=== PATIENT | female | born 1980 | race Caucasian/White ===

== ENCOUNTER → 2019-05-04 10:46 | Outpatient (BNVA) | payer MEDICAID, SELFPAY | PROVIDERS: PCP Nurse Practitioner Family; Visit Provider Nurse Practitioner Family | DX: J40 Bronchitis, not specified as acute or chronic (principal) | CPT/HCPCS: 87804 ==

== ENCOUNTER → 2019-05-08 10:47 | Outpatient (BNVA) | payer MEDICAID, SELFPAY | PROVIDERS: PCP Nurse Practitioner Family; Visit Provider Social Worker Clinical | DX: F43.12 Post-traumatic stress disorder, chronic; F33.2 Major depressive disorder, recurrent severe without psychotic features; F41.1 Generalized anxiety disorder | CPT/HCPCS: 90834 ==

== ENCOUNTER → 2019-05-14 12:53 | Outpatient (BNVA) | payer MEDICAID, SELFPAY | PROVIDERS: PCP Nurse Practitioner Family; Visit Provider Social Worker Clinical | DX: F43.12 Post-traumatic stress disorder, chronic (principal); F33.2 Major depressive disorder, recurrent severe without psychotic features; F41.1 Generalized anxiety disorder | CPT/HCPCS: 90834 ==

== ENCOUNTER → 2019-05-15 11:55 | Outpatient (BNVA) | payer MEDICAID, SELFPAY | PROVIDERS: PCP Nurse Practitioner Family; Visit Provider Psychiatry & Neurology Psychiatry | DX: F33.2 Major depressive disorder, recurrent severe without psychotic features (principal); F41.1 Generalized anxiety disorder; F43.12 Post-traumatic stress disorder, chronic | CPT/HCPCS: 99214; 99215 ==

== ENCOUNTER → 2019-05-24 14:29 | Outpatient (BNVA) | payer MEDICAID, SELFPAY | PROVIDERS: PCP Nurse Practitioner Family; Referring Provider Nurse Practitioner Family; Visit Provider Specialist | DX: G43.711 Chronic migraine without aura, intractable, with status migrainosus (principal); Z87.891 Personal history of nicotine dependence | CPT/HCPCS: 99204; 99214 ==

== ENCOUNTER → 2019-05-30 15:56 | Outpatient (BNVA) | payer MEDICAID, SELFPAY | PROVIDERS: PCP Nurse Practitioner Family; Visit Provider Social Worker Clinical | DX: F33.2 Major depressive disorder, recurrent severe without psychotic features (principal); F41.1 Generalized anxiety disorder; F43.12 Post-traumatic stress disorder, chronic | CPT/HCPCS: 90834 ==

== ENCOUNTER → 2019-06-04 11:49 | Outpatient (BNVA) | payer MEDICAID, SELFPAY | PROVIDERS: PCP Nurse Practitioner Family; Visit Provider Social Worker Clinical | DX: F33.2 Major depressive disorder, recurrent severe without psychotic features (principal); F41.1 Generalized anxiety disorder; F43.12 Post-traumatic stress disorder, chronic | CPT/HCPCS: 90834 ==

== ENCOUNTER → 2019-06-11 11:49 | Outpatient (BNVA) | payer MEDICAID, SELFPAY | PROVIDERS: PCP Nurse Practitioner Family; Visit Provider Social Worker Clinical | DX: F43.12 Post-traumatic stress disorder, chronic (principal); F33.2 Major depressive disorder, recurrent severe without psychotic features; F41.1 Generalized anxiety disorder | CPT/HCPCS: 90834 ==

== ENCOUNTER → 2019-06-14 14:21 | Outpatient (BNVA) | payer MEDICAID, SELFPAY | PROVIDERS: PCP Nurse Practitioner Family; Visit Provider Nurse Practitioner Family | DX: M25.512 Pain in left shoulder (principal) | CPT/HCPCS: 73030 ==

== ENCOUNTER → 2019-06-19 13:47 | Outpatient (BNVA) | payer MEDICAID, SELFPAY | PROVIDERS: PCP Nurse Practitioner Family; Visit Provider Social Worker Clinical | DX: F33.2 Major depressive disorder, recurrent severe without psychotic features (principal); F41.1 Generalized anxiety disorder; F43.12 Post-traumatic stress disorder, chronic | CPT/HCPCS: 90834 ==

== ENCOUNTER → 2019-06-26 10:11 | Outpatient (BNVA) | payer MEDICAID, SELFPAY | PROVIDERS: PCP Nurse Practitioner Family; Visit Provider Psychiatry & Neurology Psychiatry | DX: F33.2 Major depressive disorder, recurrent severe without psychotic features (principal); F41.1 Generalized anxiety disorder; F43.12 Post-traumatic stress disorder, chronic | CPT/HCPCS: 99213 ==

== ENCOUNTER → 2019-06-29 08:46 | Outpatient (BNVA) | payer MEDICAID, SELFPAY | PROVIDERS: PCP Nurse Practitioner Family; Visit Provider Social Worker Clinical | DX: F33.2 Major depressive disorder, recurrent severe without psychotic features (principal); F41.1 Generalized anxiety disorder; F43.12 Post-traumatic stress disorder, chronic | CPT/HCPCS: 90834 ==

== ENCOUNTER → 2019-07-10 08:37 | Outpatient (BNVA) | payer MEDICAID, SELFPAY | PROVIDERS: PCP Nurse Practitioner Family; Visit Provider Social Worker Clinical | DX: F41.1 Generalized anxiety disorder (principal); F43.12 Post-traumatic stress disorder, chronic; F33.2 Major depressive disorder, recurrent severe without psychotic features | CPT/HCPCS: 90834 ==

== ENCOUNTER → 2019-07-24 11:36 | Outpatient (BNVA) | payer MEDICAID, SELFPAY | PROVIDERS: PCP Nurse Practitioner Family; Visit Provider Social Worker Clinical | DX: F43.12 Post-traumatic stress disorder, chronic (principal) | CPT/HCPCS: 90834 ==

== ENCOUNTER → 2019-07-30 14:05 | Outpatient (BNVA) | payer MEDICAID, SELFPAY | PROVIDERS: PCP Nurse Practitioner Family; Visit Provider Social Worker Clinical | DX: F41.1 Generalized anxiety disorder (principal); F33.2 Major depressive disorder, recurrent severe without psychotic features; F43.12 Post-traumatic stress disorder, chronic | CPT/HCPCS: 90834 ==

== ENCOUNTER 2019-08-01 12:45 | Outpatient (CLI) | payer MEDICAID, SELFPAY ==
--- NOTE | 2019-08-01 12:51 | MR_ITS ---
WS: [id number] MRI LEFT SHOULDER NONCONTRAST TECHNIQUE: Sagittal T2, coronal T1, T2 and proton density imaging. Axial gradient PDE imaging. CLINICAL INFORMATION: pain left shoulder COMPARISON: None. FINDINGS: Mild degenerative arthritis at the AC joint with mild downsloping of the acromion. Small amount of fl uid and edema at the AC joint. Mild narrowing of the subacromial space. Distal supraspinatus is lavern l with mild thinning. Normal infraspinatus. Normal teres minor. Distal subscapularis is normal in vicente earance. Biceps tendon intact within the bicipital groove. Normal biceps labral anchor. Glenoid labrum is norm al in appearance. Normal visualized soft tissues. No other significant findings. MR/MR shoulder LT wo con* [id number] IMPRESSION: 1. Mild degenerative arthritis at the AC joint with a small amount of edema an d fluid. Mild downsloping of the acromion. 2. Mild narrowing of the subacromial space with mild thinning of the supraspin atus distally. No full-thickness rotator cuff tears. 3. Biceps tendon is intact within the bicipital groove. Normal biceps labral a nchor. 4. Glenoid labrum is grossly normal.
== END 2019-08-01 12:46 | disposition home or self-care (01) ==
LOC: RADWPI 12:48
PROVIDERS: PCP Nurse Practitioner Family; Visit Provider Nurse Practitioner Family
DX: M25.512 Pain in left shoulder (principal); M71.9 Bursopathy, unspecified; G43.009 Migraine without aura, not intractable, without status migrainosus; G43.711 Chronic migraine without aura, intractable, with status migrainosus; M75.52 Bursitis of left shoulder; G47.33 Obstructive sleep apnea (adult) (pediatric)
CPT/HCPCS: 73221; 99215; J1030; J3490

== ENCOUNTER → 2019-08-07 08:50 | Outpatient (BNVA) | payer MEDICAID, SELFPAY | PROVIDERS: PCP Nurse Practitioner Family; Visit Provider Psychiatry & Neurology Psychiatry | DX: F33.2 Major depressive disorder, recurrent severe without psychotic features (principal); F41.1 Generalized anxiety disorder | CPT/HCPCS: 99213 ==

== ENCOUNTER → 2019-08-08 10:01 | Outpatient (BNVA) | payer MEDICAID, SELFPAY | PROVIDERS: PCP Nurse Practitioner Family; Visit Provider Social Worker Clinical | DX: F41.1 Generalized anxiety disorder (principal); F33.2 Major depressive disorder, recurrent severe without psychotic features | CPT/HCPCS: 90834 ==

== ENCOUNTER 2019-08-14 06:00 | Outpatient (RCR) | payer MEDICAID, SELFPAY | END 2019-08-30 23:59 | disposition home or self-care (01) | LOC: TPT 06:00 | PROVIDERS: Family Provider Nurse Practitioner Family; PCP Nurse Practitioner Family; Referring Provider Nurse Practitioner Family; Visit Provider Nurse Practitioner Family | DX: M25.512 Pain in left shoulder (principal) | CPT/HCPCS: 97110; 97140; 97161; 97530 ==

== ENCOUNTER → 2019-08-15 13:41 | Outpatient (BNVA) | payer MEDICAID, SELFPAY | PROVIDERS: Family Provider Nurse Practitioner Family; PCP Nurse Practitioner Family; Visit Provider Social Worker Clinical | DX: F41.1 Generalized anxiety disorder (principal); F33.2 Major depressive disorder, recurrent severe without psychotic features | CPT/HCPCS: 90834 ==

== ENCOUNTER → 2019-08-22 07:54 | Outpatient (BNVA) | payer MEDICAID, SELFPAY | PROVIDERS: Family Provider Nurse Practitioner Family; PCP Nurse Practitioner Family; Visit Provider Social Worker Clinical | DX: F41.1 Generalized anxiety disorder (principal); F33.2 Major depressive disorder, recurrent severe without psychotic features; F43.12 Post-traumatic stress disorder, chronic | CPT/HCPCS: 90834; 90832 ==

== ENCOUNTER 2019-08-31 06:00 | Outpatient (RCR) | payer MEDICAID, SELFPAY | END 2019-09-30 23:59 | disposition home or self-care (01) | LOC: TPT 06:00 | PROVIDERS: PCP Nurse Practitioner Family; Referring Provider Nurse Practitioner Family; Visit Provider Nurse Practitioner Family | DX: M25.512 Pain in left shoulder (principal) | CPT/HCPCS: 97110; 97140; 97530 ==

== ENCOUNTER → 2019-09-05 08:46 | Outpatient (BNVA) | payer MEDICAID, SELFPAY | PROVIDERS: Family Provider Nurse Practitioner Family; Visit Provider Social Worker Clinical | DX: F41.1 Generalized anxiety disorder (principal); F33.2 Major depressive disorder, recurrent severe without psychotic features | CPT/HCPCS: 90834 ==

== ENCOUNTER → 2019-09-06 10:35 | Outpatient (BNVA) | payer MEDICAID, SELFPAY | PROVIDERS: Family Provider Nurse Practitioner Family; PCP Nurse Practitioner Family; Visit Provider Nurse Practitioner Family | DX: I10 Essential (primary) hypertension (principal); M25.512 Pain in left shoulder; B35.3 Tinea pedis; L40.9 Psoriasis, unspecified | CPT/HCPCS: 80053; 80061; 82607; 84443; 85025 ==

== ENCOUNTER → 2019-09-10 14:43 | Outpatient (BNVA) | payer MEDICAID, SELFPAY | PROVIDERS: Family Provider Nurse Practitioner Family; PCP Nurse Practitioner Family; Visit Provider Nurse Practitioner Family | DX: I10 Essential (primary) hypertension (principal) | CPT/HCPCS: 80048 ==

== ENCOUNTER → 2019-09-13 07:46 | Outpatient (BNVA) | payer MEDICAID, SELFPAY | PROVIDERS: Family Provider Nurse Practitioner Family; PCP Nurse Practitioner Family; Visit Provider Social Worker Clinical | DX: F41.1 Generalized anxiety disorder (principal); F33.2 Major depressive disorder, recurrent severe without psychotic features; F43.12 Post-traumatic stress disorder, chronic | CPT/HCPCS: 90834 ==

== ENCOUNTER → 2019-09-20 08:25 | Outpatient (BNVA) | payer MEDICAID, SELFPAY | PROVIDERS: PCP Nurse Practitioner Family; Visit Provider Social Worker Clinical | DX: F33.2 Major depressive disorder, recurrent severe without psychotic features (principal); F41.1 Generalized anxiety disorder | CPT/HCPCS: 90834 ==

== ENCOUNTER 2019-09-27 20:00 | Outpatient (CLI) | payer MEDICAID, SELFPAY | END 2019-09-27 20:01 | disposition home or self-care (01) | LOC: SLEEP 09-28 08:10 | PROVIDERS: PCP Nurse Practitioner Family; Visit Provider Specialist | DX: G47.33 Obstructive sleep apnea (adult) (pediatric) (principal) | CPT/HCPCS: 95811 ==

== ENCOUNTER 2019-10-01 06:00 | Outpatient (RCR) | payer MEDICAID, SELFPAY | END 2019-10-30 23:59 | disposition home or self-care (01) | LOC: TPT 06:00 | PROVIDERS: PCP Nurse Practitioner Family; Visit Provider Nurse Practitioner Family | DX: M25.512 Pain in left shoulder (principal) | CPT/HCPCS: 97110; 97140 ==

== ENCOUNTER → 2019-10-02 08:16 | Outpatient (BNVA) | payer MEDICAID, SELFPAY | PROVIDERS: PCP Nurse Practitioner Family; Visit Provider Social Worker Clinical | DX: F41.1 Generalized anxiety disorder (principal); F33.2 Major depressive disorder, recurrent severe without psychotic features | CPT/HCPCS: 90832 ==

== ENCOUNTER → 2019-10-09 08:15 | Outpatient (BNVA) | payer MEDICAID, SELFPAY | PROVIDERS: PCP Nurse Practitioner Family; Visit Provider Social Worker Clinical | DX: F33.2 Major depressive disorder, recurrent severe without psychotic features (principal); F41.1 Generalized anxiety disorder | CPT/HCPCS: 90834 ==

== ENCOUNTER → 2019-10-16 09:12 | Outpatient (BNVA) | payer MEDICAID, SELFPAY | PROVIDERS: PCP Nurse Practitioner Family; Visit Provider Specialist | DX: G43.711 Chronic migraine without aura, intractable, with status migrainosus (principal); M51.9 Unspecified thoracic, thoracolumbar and lumbosacral intervertebral disc disorder | CPT/HCPCS: 99213 ==

== ENCOUNTER → 2019-10-18 08:03 | Outpatient (BNVA) | payer MEDICAID, SELFPAY | PROVIDERS: PCP Nurse Practitioner Family; Visit Provider Social Worker Clinical | DX: F33.2 Major depressive disorder, recurrent severe without psychotic features (principal); F41.1 Generalized anxiety disorder | CPT/HCPCS: 90834 ==

== ENCOUNTER → 2019-10-23 08:15 | Outpatient (BNVA) | payer MEDICAID, SELFPAY | PROVIDERS: PCP Nurse Practitioner Family; Visit Provider Social Worker Clinical | DX: F41.1 Generalized anxiety disorder (principal); F33.2 Major depressive disorder, recurrent severe without psychotic features | CPT/HCPCS: 90834 ==

== ENCOUNTER → 2019-10-30 07:53 | Outpatient (BNVA) | payer MEDICAID, SELFPAY | PROVIDERS: PCP Nurse Practitioner Family; Visit Provider Psychiatry & Neurology Psychiatry | DX: F41.1 Generalized anxiety disorder (principal); F33.2 Major depressive disorder, recurrent severe without psychotic features | CPT/HCPCS: 99213 ==

== ENCOUNTER 2019-10-31 06:00 | Outpatient (RCR) | payer MEDICAID, SELFPAY | END 2019-11-30 23:59 | disposition home or self-care (01) | LOC: TPT 06:00 | PROVIDERS: PCP Nurse Practitioner Family; Visit Provider Nurse Practitioner Family | DX: M25.512 Pain in left shoulder (principal) | CPT/HCPCS: 97110; 97140 ==

== ENCOUNTER → 2019-11-01 08:12 | Outpatient (BNVA) | payer MEDICAID, SELFPAY | PROVIDERS: PCP Nurse Practitioner Family; Visit Provider Social Worker Clinical | DX: F33.2 Major depressive disorder, recurrent severe without psychotic features (principal); F41.1 Generalized anxiety disorder | CPT/HCPCS: 90834 ==

== ENCOUNTER → 2019-11-06 15:49 | Outpatient (BNVA) | payer MEDICAID, SELFPAY | PROVIDERS: PCP Nurse Practitioner Family; Visit Provider Nurse Practitioner Family | DX: R06.02 Shortness of breath (principal) | CPT/HCPCS: 71046 ==

== ENCOUNTER 2019-11-08 15:36 | Outpatient (CLI) | payer SELFPAY ==
--- NOTE | 2019-11-08 15:43 | MR_ITS ---
WS: [id number] MRI LUMBAR SPINE NONCONTRAST TECHNIQUE: Sagittal T1, T2 and STIR imaging. Axial T1 and T2 imaging. CLINICAL INFORMATION: DORSALGIA, UNSPECIFIED COMPARISON: None. FINDINGS: Mild lumbar curve. No acute compression. Mild disc bulging L4-L5 and L5-S1. Endplate degenerative rosalio nges L4-5. L1-L2: Normal. L2-L3: Normal. L3-L4: Minimal disc bulging. Mild facet arthropathy. Spinal canal and foramen are patent. L4-L5: Tiny shallow left pericentral protrusion. Narrowing of the left subarticular recess. Mild righ t and no significant left foraminal narrowing. Mild facet arthropathy. Spinal canal is patent. L5-S1: Shallow left pericentral protrusion. Slight encroachment left S1 nerve root. Mild left and no significant right foraminal narrowing. Mild facet arthropathy. Mild disc bulging C6-C7 and C7-T1. MR/MR lumbar spine wo con* [id number] IMPRESSION: 1. Mild lumbar curve. No acute compression. No high-grade central canal stenos is. 2. Shallow left pericentral protrusion L4-5 encroachment traversing left L5 ne rve root. Mild right L4-5 foraminal narrowing. 3. Shallow left pericentral protrusion L5-S1 encroaches on the left S1 nerve r oot without significant impingement. Mild left foraminal narrowing. Tiny annula r fissure at this level. 4. Small disc osteophyte protrusions mid cervical spine more prominent at C6-7 seen on the activities director scouting imaging. This can be followed up with cervical spine MRI.
== END 2019-11-08 15:37 | disposition home or self-care (01) ==
PROVIDERS: PCP Nurse Practitioner Family; Visit Provider Specialist
DX: M51.26 Other intervertebral disc displacement, lumbar region (principal); M51.27 Other intervertebral disc displacement, lumbosacral region; M25.78 Osteophyte, vertebrae
CPT/HCPCS: 72148

== ENCOUNTER → 2019-11-09 08:36 | Outpatient (BNVA) | payer MEDICAID, SELFPAY | PROVIDERS: PCP Nurse Practitioner Family; Visit Provider Anesthesiology Pain Medicine | DX: G89.29 Other chronic pain (principal); M51.16 Intervertebral disc disorders with radiculopathy, lumbar region; M62.830 Muscle spasm of back; Z79.891 Long term (current) use of opiate analgesic | CPT/HCPCS: 99204 ==

== ENCOUNTER → 2019-11-20 09:01 | Outpatient (BNVA) | payer MEDICAID, SELFPAY | PROVIDERS: PCP Nurse Practitioner Family; Visit Provider Social Worker Clinical | DX: F41.1 Generalized anxiety disorder (principal); F33.1 Major depressive disorder, recurrent, moderate | CPT/HCPCS: 90834 ==

== ENCOUNTER 2019-11-21 09:16 | Outpatient (CLI) | payer MEDICAID, SELFPAY ==
--- NOTE | 2019-11-21 14:22 | PFTS_ITS ---
Date of Study:11/21/19 Date of Dictation: MECHANICS: Forced vital capacity (FVC) is normal. Forced expiratory volume in one second (FEV1) is normal. FEV1/FVC is normal. FLOW VOLUME LOOP: Normal. LUNG VOLUMES: The lung volume measurements are likely incorrect DIFFUSING CAPACITY FOR CARBON MONOXIDE: Normal. INTERPRETATION: The spirometry is normal. The reduced total lung capacity and residual volume in the setting of normal vital capacity is likely erroneous. Gas exchange (DLCO) is normal. MTDD
== END 2019-11-21 09:17 | disposition home or self-care (01) ==
LOC: RT 09:22
PROVIDERS: PCP Nurse Practitioner Family; Visit Provider Nurse Practitioner Family
DX: R06.02 Shortness of breath (principal)
CPT/HCPCS: 94010; 94726; 94729

== ENCOUNTER → 2019-11-27 08:08 | Outpatient (BNVA) | payer MEDICAID, SELFPAY | PROVIDERS: PCP Nurse Practitioner Family; Visit Provider Social Worker Clinical | DX: F41.1 Generalized anxiety disorder (principal); F33.2 Major depressive disorder, recurrent severe without psychotic features; F43.12 Post-traumatic stress disorder, chronic | CPT/HCPCS: 90834 ==

== ENCOUNTER 2019-12-01 06:00 | Outpatient (RCR) | payer MEDICAID, SELFPAY | END 2019-12-31 23:59 | disposition home or self-care (01) | LOC: TPT 06:00 | PROVIDERS: PCP Nurse Practitioner Family; Visit Provider Nurse Practitioner Family | DX: M25.512 Pain in left shoulder (principal) | CPT/HCPCS: 97110; 97140; 97530 ==

== ENCOUNTER → 2019-12-04 09:24 | Outpatient (BNVA) | payer MEDICAID, SELFPAY | PROVIDERS: PCP Nurse Practitioner Family; Visit Provider Social Worker Clinical | DX: F41.1 Generalized anxiety disorder (principal); F33.2 Major depressive disorder, recurrent severe without psychotic features | CPT/HCPCS: 90834 ==

== ENCOUNTER 2019-12-05 12:35 | Outpatient (CLI) | payer MEDICAID, SELFPAY ==
[2019-12-05 13:03] LABS: Basophils % 0.4 %; Eosinophils # 0.1 10^3/uL (0.0-0.8); Eosinophils % 1.2 %; Hematocrit 41.7 % (37.0-47.0); Hemoglobin 13.1 g/dL (11.5-15.3); Lymphocytes # 2.1 10^3/uL (0.8-4.8); Lymphocytes % 26.1 %; Mean Corpuscular HGB Conc 31.4 g/dL (30.0-36.0); Mean Corpuscular Hemoglobin 28.1 pg (28.0-34.0); Mean Corpuscular Volume 89.3 fL (81-99); Mean Platelet Volume 8.4 fL (7.4-10.4); Monocytes # 0.5 10^3/uL (0.2-0.9); Neutrophils # 5.41 10^3/uL (1.8-7.7); Neutrophils % 65.9 %; Nucleated Red Blood Cells % 0 %; Platelet Count 261 10^3/cmm (130-400); Red Blood Count 4.67 10^6/uL (4.1-5.3); Red Cell Distribution Width 13.7 % (12.1-15.1); White Blood Count 8.2 10^3/uL (4.0-10.0)
[2019-12-05 13:29] LABS: Chol HDL Ratio 4.02 mg/dL (0.0-4.40); Cholesterol 185 mg/dL (0-200); HDL Cholesterol 46 mg/dL (60-100); LDL Cholesterol Calculated 109 mg/dL (50-129); Triglycerides 148 mg/dL (0-150); VLDL Cholestrol Calculation 30 mg/dL (0-30)
[2019-12-06 16:00] LABS: Immunoglobulin E 14 kU/L (<OR=114)
[2019-12-06 16:24] LABS: Bermuda Class 0; Bermuda Grass (G2) Ige <0.10 kU/L; Cat Dander (E1) Ige 2.85 kU/L; Cat Dander Class 2; Common Ragweed (Short) (W1) Ig 0.63 kU/L; Dog Dander (E5) Ige 0.23 kU/L; Dog Dander Class 0/1; Elm (T8) Ige <0.10 kU/L; Elm Class 0; English Plantain (W9) Ige <0.10 kU/L; English Plantain Class 0; Immunoglobulin E 10 kU/L (<OR=114); Johnson Grass (G10) Ige <0.10 kU/L; Johnson Grass Cl 0; June Grass Class 0; June Grass(Kentucky Blue) (G8) <0.10 kU/L; Lamb'S Quarters (Goose Foot) <0.10 kU/L; Lamb'S Quarters Class 0; Maple (Box Elder) (T1) Ige <0.10 kU/L; Maple Class 0; Meadow Fescue Class 0/1; Oak (T7) Ige 0.15 kU/L; Oak Class 0/1; Orchard Grass (Cocksfoot) (G3) <0.10 kU/L; Perennial Rye Grass (G5) Ige <0.10 kU/L; Perennial Rye Grass Class 0; Ragweeed Class 1; Rough Marsh Elder (W16) Ige <0.10 kU/L; Rough Marsh Elder Class 0; Sweet Vernal Class 0/1; Sweet Vernal Grass (G1) Ige 0.14 kU/L; Timothy Grass (G6) Ige <0.10 kU/L; Timothy Grass Class 0
[2019-12-07 16:44] LABS: Alternaria Alternata (M6) Ige <0.10 kU/L; Alternaria Class 0; D. Farinae Class 0; Dermatophagoides Class 0; Dermatophagoides Farinae (D2) <0.10 kU/L; Dermatophagoides Pteronyssinus <0.10 kU/L; House Dust (Greer) (H1) Ige 1.07 kU/L; House Dust (Hollister- Stier) 0.92 kU/L; House Dust Class 2; Mucor Racemosus Class 0; Penicillium Class 0; Penicillium Notatum (M1) Ige <0.10 kU/L
== END 2019-12-05 12:36 | disposition home or self-care (01) ==
LOC: LAB 12:39
PROVIDERS: Internal Medicine Pulmonary Disease; PCP Nurse Practitioner Family; Visit Provider Emergency Medicine
DX: G47.33 Obstructive sleep apnea (adult) (pediatric) (principal); J45.909 Unspecified asthma, uncomplicated; R06.02 Shortness of breath; E78.5 Hyperlipidemia, unspecified; E66.01 Morbid (severe) obesity due to excess calories; Z68.43 Body mass index [BMI] 50.0-59.9, adult
CPT/HCPCS: 80061; 82785; 85025; 86003

== ENCOUNTER → 2019-12-06 10:09 | Outpatient (BNVA) | payer MEDICAID, SELFPAY | PROVIDERS: PCP Nurse Practitioner Family; Visit Provider Anesthesiology Pain Medicine | DX: G89.29 Other chronic pain (principal); M51.16 Intervertebral disc disorders with radiculopathy, lumbar region; M62.830 Muscle spasm of back | CPT/HCPCS: 36415; 83036; 99213 ==

== ENCOUNTER → 2019-12-11 08:59 | Outpatient (BNVA) | payer MEDICAID, SELFPAY ==
[2019-12-07 11:57] VITALS: BP 135/89; BMI 51.6
== END ==
PROVIDERS: PCP Nurse Practitioner Family; Visit Provider Social Worker Clinical
DX: F41.1 Generalized anxiety disorder (principal); F33.2 Major depressive disorder, recurrent severe without psychotic features; F43.12 Post-traumatic stress disorder, chronic
CPT/HCPCS: 90834

== ENCOUNTER → 2019-12-18 08:29 | Outpatient (BNVA) | payer MEDICAID, SELFPAY ==
[2019-12-07 11:57] VITALS: BP 135/89; BMI 51.6
== END ==
PROVIDERS: PCP Nurse Practitioner Family; Visit Provider Social Worker Clinical
DX: F33.2 Major depressive disorder, recurrent severe without psychotic features (principal); F41.1 Generalized anxiety disorder; F43.12 Post-traumatic stress disorder, chronic
CPT/HCPCS: 90834

== ENCOUNTER → 2019-12-25 08:48 | Outpatient (BNVA) | payer MEDICAID, SELFPAY ==
[2019-12-07 11:57] VITALS: BP 135/89; BMI 51.6
== END ==
PROVIDERS: PCP Nurse Practitioner Family; Visit Provider Social Worker Clinical
DX: F41.1 Generalized anxiety disorder (principal); F33.2 Major depressive disorder, recurrent severe without psychotic features
CPT/HCPCS: 90834

== ENCOUNTER 2019-12-27 12:36 | Outpatient (CLI) | payer MEDICAID, SELFPAY ==
[2019-12-07 11:57] VITALS: BP 135/89; BMI 51.6
--- NOTE | 2019-12-27 12:45 | USCV_ITS ---
Dora Murrell Age: 39 Gender: F : 1980 Exam Date: 12/27/2019 13:12 Ordering Phys: Bam Becerra MD Technologist: Delaney Rueda [place] [facility] [place]: SOB BP: / HR: 84 Rhythm: Sinus Technical Quality: TDS MEASUREMENTS (Male / Female) Normal Values 2D ECHO LV Diastolic Diameter PLAX 5.3 cm 4.2 - 5.9 / 3.9 - 5.3 cm LV Systolic Diameter PLAX 3.2 cm LV Chamber Size 3.2 cm IVS Diastolic Thickness 1.1 cm 0.6 - 1.0 / 0.6 - 0.9 cm IVS Systolic Thickness 1.7 cm LVPW Diastolic Thickness 1.4 cm 0.6 - 1.0 / 0.6 - 0.9 cm LVPW Systolic Thickness 2.1 cm RV Chamber Size 2.2 cm LVOT Diameter 2.0 cm LV Ejection Fraction 2D Teich 70.1 % LV Ejection Fraction MOD 2C 44.7 % LV Ejection Fraction 2C AL 45.6 % LA Diameter 4.5 cm LA Width 2.5 cm LA Height 3.9 cm RA Width 3.0 cm RA Height 3.7 cm Aorta at Sinotubular Diameter 3.6 cm M-MODE LV Diastolic Diameter MM 4.6 cm 4.2 - 5.9 / 3.9 - 5.3 cm LV Systolic Diameter MM 3.8 cm LV Ejection Fraction MM Teich 35.0 % IVS Diastolic Thickness MM 0.7 cm 0.6 - 1.0 / 0.6 - 0.9 cm IVS Systolic Thickness MM 1.6 cm LVPW Diastolic Thickness MM 1.3 cm 0.6 - 1.0 / 0.6 - 0.9 cm LVPW Systolic Thickness MM 1.4 cm RV Diastolic Diameter MM 1.7 cm Aortic Annulus Diameter 3.6 cm LA Ao Ratio MM 1.2 DOPPLER AV Peak Velocity 125.0 cm/s LVOT Peak Velocity 85.0 cm/s AV Area Cont Eq vti 2.8 cm squared AV Area Cont Eq pk 2.2 cm squared MV Area PHT 5.0 cm squared Mitral E to A Ratio 1.2 MV E' Velocity 9.0 cm/s Mitral E to MV E' Ratio 7.0 Mitral E to LV E' Lateral Ratio 7.9 Mitral E to LV E' Septal Ratio 6.4 TR Peak Velocity 175.3 cm/s TR Peak Gradient 12.3 mmHg TR Mean Velocity 117.2 cm/s TR Mean Gradient 6.6 mmHg TR Velocity Time Integral 39.6 cm TV Peak E Velocity 84.0 cm/s Right Atrial Pressure 15.0 mmHg Pulmonary Artery Systolic Pressu 27.3 mmHg PV Peak Velocity 73.0 cm/s RV Acceleration Time 0.1 s RV Ejection Time 0.3 s RV AcT/ET 0.4 FINDINGS Left Ventricle Normal left ventricular cavity size. Upper normal left ventricular thickness. Normal left ventricular systolic function. Left ventricular ejection fraction is estimated at 55- 60 %. No regional wall motion abnormalities. Normal diastolic function. Right Ventricle Normal right ventricular size and systolic function. Right ventricular systolic pressure 27.3 mmHg. Right Atrium Normal right atrial size. Left Atrium Normal left atrial size. Mitral Valve Structurally normal mitral valve. No mitral valve regurgitation. Aortic Valve Aortic valve not well visualized. No aortic valve stenosis. Tricuspid Valve Structurally normal tricuspid valve. Trace tricuspid valve regurgitation. Pulmonic Valve Structurally normal pulmonic valve. Pericardium No pericardial effusion. Aorta Normal size aortic root and proximal ascending aorta. CONCLUSIONS 1. Normal left ventricular cavity size and systolic function. Upper normal left ventricular thickness. Left ventricular ejection fraction is estimated at 55-60 %. No regional wall motion abnormalities. Normal diastolic function. 2. Normal pulmonary artery pressure. 3. No significant valvular abnormality. 4. No prior similar studies to compare. Isela Rivera MD (Electronically Signed) Final Date: 27 December 2019 23:05 S
== END 2019-12-27 12:37 | disposition home or self-care (01) ==
PROVIDERS: PCP Nurse Practitioner Family; Visit Provider Internal Medicine Pulmonary Disease
DX: R06.02 Shortness of breath (principal)
CPT/HCPCS: 93306

== ENCOUNTER → 2019-12-31 09:25 | Outpatient (BNVA) | payer MEDICAID, SELFPAY ==
[2019-12-07 11:57] VITALS: BP 135/89; BMI 51.6
== END ==
PROVIDERS: PCP Nurse Practitioner Family; Visit Provider Social Worker Clinical
DX: F41.1 Generalized anxiety disorder (principal); F33.2 Major depressive disorder, recurrent severe without psychotic features
CPT/HCPCS: 90834

== ENCOUNTER 2020-01-01 06:00 | Outpatient (RCR) | payer MEDICAID, SELFPAY ==
[2019-12-07 11:57] VITALS: BP 135/89; BMI 51.6
== END 2020-01-30 23:59 | disposition home or self-care (01) ==
LOC: TPT 06:00
PROVIDERS: PCP Nurse Practitioner Family; Visit Provider Nurse Practitioner Family
DX: M25.512 Pain in left shoulder (principal)
CPT/HCPCS: 97110

== ENCOUNTER → 2020-01-08 08:50 | Outpatient (BNVA) | payer MEDICAID, SELFPAY ==
[2019-12-07 11:57] VITALS: BP 135/89; BMI 51.6
== END ==
PROVIDERS: PCP Nurse Practitioner Family; Visit Provider Social Worker Clinical
DX: F33.2 Major depressive disorder, recurrent severe without psychotic features (principal); F41.1 Generalized anxiety disorder
CPT/HCPCS: 90832; 73562

== ENCOUNTER → 2020-01-17 07:51 | Outpatient (BNVA) | payer MEDICAID, SELFPAY ==
[2019-12-07 11:57] VITALS: BP 135/89; BMI 51.6
== END ==
PROVIDERS: PCP Nurse Practitioner Family; Visit Provider Psychiatry & Neurology Psychiatry
DX: F33.2 Major depressive disorder, recurrent severe without psychotic features (principal); F41.1 Generalized anxiety disorder
CPT/HCPCS: 99213

== ENCOUNTER → 2020-01-21 09:27 | Outpatient (BNVA) | payer MEDICAID, SELFPAY ==
[2019-12-07 11:57] VITALS: BP 135/89; BMI 51.6
== END ==
PROVIDERS: PCP Nurse Practitioner Family; Visit Provider Social Worker Clinical
DX: F41.1 Generalized anxiety disorder (principal); F33.2 Major depressive disorder, recurrent severe without psychotic features
CPT/HCPCS: 90834

== ENCOUNTER → 2020-01-28 08:25 | Outpatient (BNVA) | payer MEDICAID, SELFPAY ==
[2019-12-07 11:57] VITALS: BP 135/89; BMI 51.6
== END ==
PROVIDERS: PCP Nurse Practitioner Family; Visit Provider Social Worker Clinical
DX: F33.2 Major depressive disorder, recurrent severe without psychotic features (principal); F41.1 Generalized anxiety disorder; F43.12 Post-traumatic stress disorder, chronic
CPT/HCPCS: 90834

== ENCOUNTER 2020-02-04 13:18 | Outpatient (CLI) | payer MEDICAID, SELFPAY ==
[2019-12-07 11:57] VITALS: BP 135/89; BMI 51.6
--- NOTE | 2020-02-04 13:25 | MM_ITS ---
WS: [id number] BILATERAL DIGITAL SCREENING MAMMOGRAM WITH CAD CLINICAL INFORMATION: SCREENING HISTORY: Screening mammogram. No current complaints. COMPARISON: None. TECHNIQUE: Bilateral CC and MLO views. FINDINGS: Fatty-replaced breasts bilaterally. No suspicious focal mass, asymmetry, calcifications, or obiee obia solution architect ural distortion. No evidence of malignancy. MM/[place] [id number] IMPRESSION: BI-RADS: 1-Negative FOLLOW UP: 1 Year Follow-up Recommend return to annual screening mammography.
== END 2020-02-04 13:19 | disposition home or self-care (01) ==
LOC: RADSHAW 13:20
PROVIDERS: PCP Nurse Practitioner Family; Visit Provider Nurse Practitioner Family
DX: Z12.31 Encounter for screening mammogram for malignant neoplasm of breast; F41.1 Generalized anxiety disorder; F33.2 Major depressive disorder, recurrent severe without psychotic features; F43.12 Post-traumatic stress disorder, chronic
CPT/HCPCS: 77067; 90834; 99213

== ENCOUNTER → 2020-02-11 08:50 | Outpatient (BNVA) | payer MEDICAID, SELFPAY ==
[2019-12-07 11:57] VITALS: BP 135/89; BMI 51.6
== END ==
PROVIDERS: PCP Nurse Practitioner Family; Visit Provider Social Worker Clinical
DX: F33.2 Major depressive disorder, recurrent severe without psychotic features (principal); F41.1 Generalized anxiety disorder; F43.12 Post-traumatic stress disorder, chronic
CPT/HCPCS: 90834

== ENCOUNTER → 2020-02-18 08:35 | Outpatient (BNVA) | payer MEDICAID, SELFPAY ==
[2019-12-07 11:57] VITALS: BP 135/89; BMI 51.6
== END ==
PROVIDERS: PCP Nurse Practitioner Family; Visit Provider Social Worker Clinical
DX: F33.2 Major depressive disorder, recurrent severe without psychotic features (principal); F41.1 Generalized anxiety disorder; F43.12 Post-traumatic stress disorder, chronic; G89.29 Other chronic pain; M47.816 Spondylosis without myelopathy or radiculopathy, lumbar region; M54.9 Dorsalgia, unspecified
CPT/HCPCS: 90834; 64493; 64494; J1030; J3490

== ENCOUNTER → 2020-02-21 08:13 | Outpatient (BNVA) | payer MEDICAID, SELFPAY ==
[2019-12-07 11:57] VITALS: BP 135/89; BMI 51.6
== END ==
PROVIDERS: PCP Nurse Practitioner Family; Visit Provider Psychiatry & Neurology Psychiatry
DX: F41.1 Generalized anxiety disorder (principal); F33.2 Major depressive disorder, recurrent severe without psychotic features
CPT/HCPCS: 99213

== ENCOUNTER → 2020-02-25 08:47 | Outpatient (BNVA) | payer MEDICAID, SELFPAY ==
[2019-12-07 11:57] VITALS: BP 135/89; BMI 51.6
== END ==
PROVIDERS: PCP Nurse Practitioner Family; Visit Provider Social Worker Clinical
DX: F33.2 Major depressive disorder, recurrent severe without psychotic features (principal); F43.12 Post-traumatic stress disorder, chronic
CPT/HCPCS: 90834

== ENCOUNTER → 2020-02-27 16:50 | Outpatient (BNVA) | payer MEDICAID, SELFPAY ==
[2019-12-07 11:57] VITALS: BP 135/89; BMI 51.6
== END ==
PROVIDERS: PCP Nurse Practitioner Family; Visit Provider Nurse Practitioner Family
DX: I10 Essential (primary) hypertension (principal); R60.9 Edema, unspecified; Z23 Encounter for immunization
CPT/HCPCS: 80048; 80053; 81003

== ENCOUNTER → 2020-03-03 08:50 | Outpatient (BNVA) | payer MEDICAID, SELFPAY ==
[2019-12-07 11:57] VITALS: BP 135/89; BMI 51.6
== END ==
PROVIDERS: PCP Nurse Practitioner Family; Visit Provider Social Worker Clinical
DX: F33.2 Major depressive disorder, recurrent severe without psychotic features (principal); F41.1 Generalized anxiety disorder; F43.12 Post-traumatic stress disorder, chronic; G89.29 Other chronic pain; M51.16 Intervertebral disc disorders with radiculopathy, lumbar region; M51.9 Unspecified thoracic, thoracolumbar and lumbosacral intervertebral disc disorder; M62.830 Muscle spasm of back; Z68.43 Body mass index [BMI] 50.0-59.9, adult
CPT/HCPCS: 90834; 99213

== ENCOUNTER → 2020-03-10 08:31 | Outpatient (BNVA) | payer MEDICAID, SELFPAY ==
[2019-12-07 11:57] VITALS: BP 135/89; BMI 51.6
== END ==
PROVIDERS: PCP Nurse Practitioner Family; Visit Provider Social Worker Clinical
DX: F33.2 Major depressive disorder, recurrent severe without psychotic features (principal); F41.1 Generalized anxiety disorder; F43.12 Post-traumatic stress disorder, chronic
CPT/HCPCS: 90834

== ENCOUNTER → 2020-03-18 08:33 | Outpatient (BNVA) | payer MEDICAID, SELFPAY ==
[2019-12-07 11:57] VITALS: BP 135/89; BMI 51.6
== END ==
PROVIDERS: PCP Nurse Practitioner Family; Visit Provider Social Worker Clinical
DX: F41.1 Generalized anxiety disorder (principal); F33.2 Major depressive disorder, recurrent severe without psychotic features
CPT/HCPCS: 90834

== ENCOUNTER → 2020-03-24 07:50 | Outpatient (BNVA) | payer MEDICAID, SELFPAY ==
[2019-12-07 11:57] VITALS: BP 135/89; BMI 51.6
== END ==
PROVIDERS: PCP Nurse Practitioner Family; Visit Provider Social Worker Clinical
DX: F41.1 Generalized anxiety disorder (principal); F33.2 Major depressive disorder, recurrent severe without psychotic features; F43.12 Post-traumatic stress disorder, chronic
CPT/HCPCS: 90834

== ENCOUNTER → 2020-03-31 07:47 | Outpatient (BNVA) | payer MEDICAID, SELFPAY ==
[2019-12-07 11:57] VITALS: BP 135/89; BMI 51.6
== END ==
PROVIDERS: PCP Nurse Practitioner Family; Visit Provider Psychiatry & Neurology Psychiatry
DX: F41.9 Anxiety disorder, unspecified (principal); F33.42 Major depressive disorder, recurrent, in full remission
CPT/HCPCS: 99213

== ENCOUNTER → 2020-04-03 07:48 | Outpatient (BNVA) | payer MEDICAID, SELFPAY ==
[2019-12-07 11:57] VITALS: BP 135/89; BMI 51.6
== END ==
PROVIDERS: PCP Nurse Practitioner Family; Visit Provider Social Worker Clinical
DX: F41.1 Generalized anxiety disorder (principal); F33.2 Major depressive disorder, recurrent severe without psychotic features; F43.12 Post-traumatic stress disorder, chronic
CPT/HCPCS: 90834

== ENCOUNTER → 2020-04-15 08:24 | Outpatient (BNVA) | payer MEDICAID, SELFPAY ==
[2019-12-07 11:57] VITALS: BP 135/89; BMI 51.6
== END ==
PROVIDERS: PCP Nurse Practitioner Family; Visit Provider Social Worker Clinical
DX: F41.1 Generalized anxiety disorder (principal); F33.2 Major depressive disorder, recurrent severe without psychotic features
CPT/HCPCS: 90834

== ENCOUNTER → 2020-04-21 07:34 | Outpatient (BNVA) | payer MEDICAID, SELFPAY ==
[2019-12-07 11:57] VITALS: BP 135/89; BMI 51.6
== END ==
PROVIDERS: PCP Nurse Practitioner Family; Visit Provider Social Worker Clinical
DX: F41.1 Generalized anxiety disorder (principal); F33.2 Major depressive disorder, recurrent severe without psychotic features
CPT/HCPCS: 90834

== ENCOUNTER → 2020-04-23 16:05 | Outpatient (BNVA) | payer MEDICAID, SELFPAY ==
[2019-12-07 11:57] VITALS: BP 135/89; BMI 51.6
== END ==
PROVIDERS: PCP Nurse Practitioner Family; Visit Provider Surgery
DX: K21.9 Gastro-esophageal reflux disease without esophagitis (principal); Z20.828 Contact with and (suspected) exposure to other viral communicable diseases
CPT/HCPCS: 87635

== ENCOUNTER → 2020-04-29 08:20 | Outpatient (BNVA) | payer MEDICAID, SELFPAY ==
[2019-12-07 11:57] VITALS: BP 135/89; BMI 51.6
== END ==
PROVIDERS: PCP Nurse Practitioner Family; Visit Provider Social Worker Clinical
DX: F33.2 Major depressive disorder, recurrent severe without psychotic features (principal); F41.1 Generalized anxiety disorder; F43.12 Post-traumatic stress disorder, chronic
CPT/HCPCS: 90834

== ENCOUNTER 2020-04-30 06:31 | Day surgery (SDC) | payer MEDICAID, SELFPAY ==
[2019-12-07 11:57] VITALS: BP 135/89; BMI 51.6
[2020-04-29 09:37] VITALS: BMI 52.1
[2020-04-30 06:59] VITALS: BP 157/96; PULSE 89; RESP 18; TEMP 36.2; O2SAT 98
[2020-04-30] MEDS: sodium chloride 0.9% 1,000 ML 30 ML IV (07:11)
[2020-04-30 07:13] LABS: Glucose Point of Care 109 mg/dL (70-110)
--- NOTE | 2020-04-30 07:38 | W.PM.OPSUD ---
Surgery/Procedure H&P Update DATE OF PROCEDURE: April 30, 2020 DATE H&P PERFORMED: 04/03/20 H&P UPDATE INFORMATION: I have reviewed H&P completed within last 30 days, I have examined patient prior to procedure and No changes to prior documentation PREOP DIAGNOSIS: Acid reflux and morbid obesity PRIMARY INDICATION FOR PROCEDURE: The same PLANNED PROCEDURE: Operation Date: 04/30/20 07:30 Proposed Procedures p EGD 07865 k21.9(Not Applicable) - Kong Jorgensen MD
--- NOTE | 2020-04-30 08:06 | P.ANESASSM_ITS ---
Pre-Anesthetic Assessment Pre-Anesthetic Assessment: Height/Weight: Height 1.73 m Weight 155.582 kg Temp Pulse Resp BP Pulse Ox 97.1 F L 89 18 157/96 98 04/30/20 06:59 04/30/20 06:59 04/30/20 06:59 04/30/20 06:59 04/30/20 06:59 Preop Diagnosis: Acid reflux and morbid obesity Proposed Procedure: Operation Date: 04/30/20 07:30 Proposed Procedures p EGD 97611 k21.9(Not Applicable) - Kong Jorgensen MD Was Beta Cheng taken within 24 hours: N/A Last intake: Intake Last Liquid Date 04/29/20 Last Liquid Time 22:00 Last Solid Date 04/29/20 Last Solid Time 18:00 Social: Social History: No alcohol and No tobacco Exam: Pre-Anes Outpt Exam: alert, oriented x 3, clear to auscultation bilaterally and regular rate & rhythm Airway: Submandibular: WNL Cervical ROM: WNL MP: 2 Dentition: Full Pulmonary: Pulmonary: Asthma and Sleep apnea CV/HEM: CV/HEM: HTN GI: GI: GERD Metabolic: Metabolic: DM and Morbid obesity Musc/skel: Musc/skel: Fibromyalgia, Lower Back Pain and OA/DJD Neuropsych: Neuropsych: Depression Anesthetic Plan: ASA status: 3 Anesthesia: MAC Risk of > 500 ml blood loss (7ml/kg in children): No Meds/Allergies Current Medications: Current Medications Generic Name Dose Route Start Last Admin Trade Name Freq PRN Reason Stop Dose Admin Sodium Chloride 1,000 mls @ 30 ml s/hr 04/30/20 07:00 04/30/20 07:11 Sodium Chloride 0.9% IV 05/01/20 06:59 30 mls/hr .Q24H KELIN Administration PFSH Anesthesia PFSH: Medical History 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 She has 3 to 4-day bouts of headache that meet criteria for common migraine. She did not respond to Topamax and it caused side effects. Trial of amitriptyline 25 mg at at bedtime. She is already on an antidepressant. Imitrex as needed. The use of Imitrex with an analgesic was explained. I took time to answer her questions. I reviewed the physiology of migraine as a chemical and electrical process in the brain. Obstructive sleep apnea (adult) (pediatric) Pain management contract signed Surgical History History of surgical removal of ganglion cyst right wrist Hx of cholecystectomy Hx of tubal ligation 08/2013 Family History Mother Psychiatric illness Father CAD (coronary artery disease) Hypertension Diabetes Other Bipolar 1 disorder Stroke Thyroid condition Social History Smoking and tobacco status: former smoker Quit status (tobacco): has quit using tobacco Year quit tobacco: 2017 - 0.5 PPD x 4 Years Second hand smoke exposure: No Alcohol intake: never Lives independently: Yes Household members: significant other and children Housing: Apartment Marital status: Single Number of children: 4 Number of grandchildren: 0 Highest education level completed: Associate Degree: Academic Program service: No Current occupational status: unemployed Current occupational exposures/hazards: No Pets and animals: Yes Pets & animals: cat(s) History of recent travel: No Leisure activites: art and other Leisure activities details: video games Sexually active: Yes Current gender identity: Female Marcia/Pentecostalism: None Special marcia needs: No Agree to transfusion: Yes Financial difficulty paying for basics: Somewhat Hard Female Reproductive History: Date of last menstrual period: 11/19/19 Para: 4 Spontaneous abortions: No Data Anesthesia Other Labs: Laboratory Results - last 48 hr 04/30/20 07:11 POC Glucose 109 Cardiac Studies: No Data to Display
[2020-04-30 08:39] VITALS: BP 163/95; PULSE 76; RESP 16; TEMP 36.3; O2SAT 98
[2020-04-30 08:55] VITALS: BP 182/102; PULSE 70; RESP 16; TEMP 36.3; O2SAT 100
--- NOTE | 2020-04-30 09:48 | ANE.PACU2 ---
Inpatient post-anesthesia follow up: Airway intact: Yes Vital signs: Temperature 97.4 F Pulse Rate 70 Respiratory Rate 16 Blood Pressure 182/102 Pulse Oximetry 100 Oxygen Delivery Me thod Room Air Oxygen Flow Rate Fraction of Inspir ed Oxygen Hydration adequate: Yes Nausea and vomiting: No Pain level: 1 Mental status: Baseline
[2020-05-01 10:59] LABS: H. Pylori / CLO Test Negative
== END 2020-04-30 09:15 | disposition home or self-care (01) ==
PROVIDERS: PCP Nurse Practitioner Family; Visit Provider Surgery
PROC: 0DJ08ZZ Inspection of Upper Intestinal Tract, Via Natural or Artificial Opening Endoscopic (ICD-10-PCS; CPT 43235; principal; 2020-04-30 07:30)
DX: K21.9 Gastro-esophageal reflux disease without esophagitis (principal); E66.01 Morbid (severe) obesity due to excess calories; Z68.43 Body mass index [BMI] 50.0-59.9, adult; K29.70 Gastritis, unspecified, without bleeding; K29.80 Duodenitis without bleeding; I10 Essential (primary) hypertension; E11.9 Type 2 diabetes mellitus without complications; M79.7 Fibromyalgia; M19.90 Unspecified osteoarthritis, unspecified site; F32.9 Major depressive disorder, single episode, unspecified; F41.9 Anxiety disorder, unspecified; G47.33 Obstructive sleep apnea (adult) (pediatric); Z87.891 Personal history of nicotine dependence
CPT/HCPCS: 12345; 36416; 43239; 82962; 87077; J2704; J7030

== ENCOUNTER → 2020-05-07 09:13 | Outpatient (BNVA) | payer MEDICAID, SELFPAY ==
[2019-12-07 11:57] VITALS: BP 135/89; BMI 51.6
== END ==
PROVIDERS: PCP Nurse Practitioner Family; Visit Provider Social Worker Clinical
DX: F33.2 Major depressive disorder, recurrent severe without psychotic features (principal); F43.12 Post-traumatic stress disorder, chronic
CPT/HCPCS: 90834

== ENCOUNTER → 2020-05-14 08:47 | Outpatient (BNVA) | payer MEDICAID, SELFPAY ==
[2019-12-07 11:57] VITALS: BP 135/89; BMI 51.6
== END ==
PROVIDERS: PCP Nurse Practitioner Family; Visit Provider Social Worker Clinical
DX: F33.2 Major depressive disorder, recurrent severe without psychotic features (principal); F41.1 Generalized anxiety disorder; F43.12 Post-traumatic stress disorder, chronic
CPT/HCPCS: 90834

== ENCOUNTER → 2020-05-20 15:08 | Outpatient (BNVA) | payer MEDICAID, SELFPAY ==
[2019-12-07 11:57] VITALS: BP 135/89; BMI 51.6
== END ==
PROVIDERS: PCP Nurse Practitioner Family; Visit Provider Nurse Practitioner Family
DX: R10.2 Pelvic and perineal pain (principal)
CPT/HCPCS: 81003

== ENCOUNTER → 2020-05-21 08:40 | Outpatient (BNVA) | payer MEDICAID, SELFPAY ==
[2019-12-07 11:57] VITALS: BP 135/89; BMI 51.6
== END ==
PROVIDERS: PCP Nurse Practitioner Family; Visit Provider Social Worker Clinical
DX: F41.1 Generalized anxiety disorder (principal); F33.2 Major depressive disorder, recurrent severe without psychotic features; F43.12 Post-traumatic stress disorder, chronic
CPT/HCPCS: 90834

== ENCOUNTER → 2020-05-27 08:51 | Outpatient (BNVA) | payer MEDICAID, SELFPAY ==
[2019-12-07 11:57] VITALS: BP 135/89; BMI 51.6
== END ==
PROVIDERS: PCP Nurse Practitioner Family; Visit Provider Anesthesiology Pain Medicine
DX: G89.29 Other chronic pain (principal); M51.16 Intervertebral disc disorders with radiculopathy, lumbar region; M51.9 Unspecified thoracic, thoracolumbar and lumbosacral intervertebral disc disorder; M62.830 Muscle spasm of back; Z68.43 Body mass index [BMI] 50.0-59.9, adult
CPT/HCPCS: 99213; 99214

== ENCOUNTER → 2020-05-28 08:26 | Outpatient (BNVA) | payer MEDICAID, SELFPAY ==
[2019-12-07 11:57] VITALS: BP 135/89; BMI 51.6
== END ==
PROVIDERS: PCP Nurse Practitioner Family; Visit Provider Social Worker Clinical
DX: F33.2 Major depressive disorder, recurrent severe without psychotic features (principal); F41.1 Generalized anxiety disorder; F43.12 Post-traumatic stress disorder, chronic
CPT/HCPCS: 90834

== ENCOUNTER → 2020-06-05 09:34 | Outpatient (BNVA) | payer MEDICAID, SELFPAY ==
[2019-12-07 11:57] VITALS: BP 135/89; BMI 51.6
== END ==
PROVIDERS: PCP Nurse Practitioner Family; Visit Provider Nurse Practitioner Family
DX: Z20.822 Contact with and (suspected) exposure to COVID-19 (principal)
CPT/HCPCS: 87635

== ENCOUNTER → 2020-06-11 08:53 | Outpatient (BNVA) | payer MEDICAID, SELFPAY ==
[2019-12-07 11:57] VITALS: BP 135/89; BMI 51.6
== END ==
PROVIDERS: PCP Nurse Practitioner Family; Visit Provider Social Worker Clinical
DX: F33.2 Major depressive disorder, recurrent severe without psychotic features (principal); F41.1 Generalized anxiety disorder; F43.12 Post-traumatic stress disorder, chronic
CPT/HCPCS: 90834

== ENCOUNTER → 2020-06-18 07:52 | Outpatient (BNVA) | payer MEDICAID, SELFPAY ==
[2019-12-07 11:57] VITALS: BP 135/89; BMI 51.6
== END ==
PROVIDERS: PCP Nurse Practitioner Family; Visit Provider Social Worker Clinical
DX: F41.1 Generalized anxiety disorder (principal); F33.2 Major depressive disorder, recurrent severe without psychotic features; F43.12 Post-traumatic stress disorder, chronic
CPT/HCPCS: 90834

== ENCOUNTER → 2020-06-27 08:44 | Outpatient (BNVA) | payer MEDICAID, SELFPAY ==
[2019-12-07 11:57] VITALS: BP 135/89; BMI 51.6
== END ==
PROVIDERS: PCP Nurse Practitioner Family; Visit Provider Social Worker Clinical
DX: F33.2 Major depressive disorder, recurrent severe without psychotic features (principal); F41.1 Generalized anxiety disorder
CPT/HCPCS: 90834

== ENCOUNTER → 2020-07-01 10:27 | Outpatient (BNVA) | payer MEDICAID, SELFPAY ==
[2019-12-07 11:57] VITALS: BP 135/89; BMI 51.6
== END ==
PROVIDERS: PCP Nurse Practitioner Family; Visit Provider Social Worker Clinical
DX: F41.1 Generalized anxiety disorder (principal); F33.2 Major depressive disorder, recurrent severe without psychotic features; F43.12 Post-traumatic stress disorder, chronic
CPT/HCPCS: 90834

== ENCOUNTER → 2020-07-14 07:44 | Outpatient (BNVA) | payer MEDICAID, SELFPAY ==
[2019-12-07 11:57] VITALS: BP 135/89; BMI 51.6
== END ==
PROVIDERS: PCP Nurse Practitioner Family; Visit Provider Psychiatry & Neurology Psychiatry
DX: F41.1 Generalized anxiety disorder (principal); F33.2 Major depressive disorder, recurrent severe without psychotic features
CPT/HCPCS: 99214

== ENCOUNTER → 2020-07-16 09:51 | Outpatient (BNVA) | payer MEDICAID, SELFPAY ==
[2019-12-07 11:57] VITALS: BP 135/89; BMI 51.6
== END ==
PROVIDERS: PCP Nurse Practitioner Family; Visit Provider Social Worker Clinical
DX: F41.1 Generalized anxiety disorder (principal); F33.2 Major depressive disorder, recurrent severe without psychotic features; F43.12 Post-traumatic stress disorder, chronic
CPT/HCPCS: 90834

== ENCOUNTER → 2020-07-22 10:27 | Outpatient (BNVA) | payer OTHER, SELFPAY ==
[2019-12-07 11:57] VITALS: BP 135/89; BMI 51.6
== END ==
PROVIDERS: PCP Nurse Practitioner Family; Visit Provider Anesthesiology Pain Medicine
DX: G89.29 Other chronic pain (principal); M51.16 Intervertebral disc disorders with radiculopathy, lumbar region; M51.9 Unspecified thoracic, thoracolumbar and lumbosacral intervertebral disc disorder; M19.90 Unspecified osteoarthritis, unspecified site; M62.830 Muscle spasm of back; Z68.43 Body mass index [BMI] 50.0-59.9, adult
CPT/HCPCS: 99214

== ENCOUNTER → 2020-07-23 09:56 | Outpatient (BNVA) | payer OTHER, MEDICAID, SELFPAY ==
[2019-12-07 11:57] VITALS: BP 135/89; BMI 51.6
== END ==
PROVIDERS: PCP Nurse Practitioner Family; Visit Provider Social Worker Clinical
DX: F41.1 Generalized anxiety disorder (principal); F33.2 Major depressive disorder, recurrent severe without psychotic features; F43.12 Post-traumatic stress disorder, chronic; G43.711 Chronic migraine without aura, intractable, with status migrainosus; M51.16 Intervertebral disc disorders with radiculopathy, lumbar region; Z87.891 Personal history of nicotine dependence
CPT/HCPCS: 90834; 99214

== ENCOUNTER → 2020-07-24 16:10 | Outpatient (BNVA) | payer MEDICAID, SELFPAY ==
[2019-12-07 11:57] VITALS: BP 135/89; BMI 51.6
== END ==
PROVIDERS: PCP Nurse Practitioner Family; Visit Provider Nurse Practitioner Women's Health
DX: N36.8 Other specified disorders of urethra (principal)
CPT/HCPCS: 81000; 87086

== ENCOUNTER → 2020-07-30 10:29 | Outpatient (BNVA) | payer MEDICAID, SELFPAY ==
[2019-12-07 11:57] VITALS: BP 135/89; BMI 51.6
== END ==
PROVIDERS: PCP Nurse Practitioner Family; Visit Provider Social Worker Clinical
DX: F41.1 Generalized anxiety disorder (principal); F33.2 Major depressive disorder, recurrent severe without psychotic features; F43.12 Post-traumatic stress disorder, chronic
CPT/HCPCS: 90834

== ENCOUNTER → 2020-08-06 11:02 | Outpatient (BNVA) | payer MEDICAID, SELFPAY ==
[2019-12-07 11:57] VITALS: BP 135/89; BMI 51.6
== END ==
PROVIDERS: PCP Nurse Practitioner Family; Visit Provider Social Worker Clinical
DX: F41.1 Generalized anxiety disorder (principal); F33.2 Major depressive disorder, recurrent severe without psychotic features; F43.12 Post-traumatic stress disorder, chronic
CPT/HCPCS: 90834; 80053; 80061; 83036; 84443; 85025

== ENCOUNTER → 2020-08-20 09:57 | Outpatient (BNVA) | payer MEDICAID, SELFPAY ==
[2019-12-07 11:57] VITALS: BP 135/89; BMI 51.6
== END ==
PROVIDERS: PCP Nurse Practitioner Family; Visit Provider Social Worker Clinical
DX: F33.2 Major depressive disorder, recurrent severe without psychotic features (principal); F43.12 Post-traumatic stress disorder, chronic
CPT/HCPCS: 90834

== ENCOUNTER → 2020-08-27 14:35 | Outpatient (BNVA) | payer MEDICAID, SELFPAY ==
[2019-12-07 11:57] VITALS: BP 135/89; BMI 51.6
== END ==
PROVIDERS: PCP Nurse Practitioner Family; Visit Provider Social Worker Clinical
DX: F33.2 Major depressive disorder, recurrent severe without psychotic features (principal); F43.12 Post-traumatic stress disorder, chronic
CPT/HCPCS: 90834

== ENCOUNTER → 2020-09-03 11:01 | Outpatient (BNVA) | payer MEDICAID, SELFPAY ==
[2019-12-07 11:57] VITALS: BP 135/89; BMI 51.6
== END ==
PROVIDERS: PCP Nurse Practitioner Family; Visit Provider Social Worker Clinical
DX: F33.2 Major depressive disorder, recurrent severe without psychotic features (principal); F43.12 Post-traumatic stress disorder, chronic
CPT/HCPCS: 90834

== ENCOUNTER → 2020-09-09 08:45 | Outpatient (BNVA) | payer MEDICAID, SELFPAY ==
[2019-12-07 11:57] VITALS: BP 135/89; BMI 51.6
== END ==
PROVIDERS: PCP Nurse Practitioner Family; Visit Provider Social Worker Clinical
DX: F33.2 Major depressive disorder, recurrent severe without psychotic features (principal); F43.12 Post-traumatic stress disorder, chronic
CPT/HCPCS: 90834

== ENCOUNTER → 2020-09-18 08:53 | Outpatient (BNVA) | payer MEDICAID, SELFPAY ==
[2019-12-07 11:57] VITALS: BP 135/89; BMI 51.6
== END ==
PROVIDERS: PCP Nurse Practitioner Family; Visit Provider Social Worker Clinical
DX: F33.2 Major depressive disorder, recurrent severe without psychotic features (principal); F43.12 Post-traumatic stress disorder, chronic
CPT/HCPCS: 90834

== ENCOUNTER → 2020-09-25 09:51 | Outpatient (BNVA) | payer MEDICAID, SELFPAY ==
[2019-12-07 11:57] VITALS: BP 135/89; BMI 51.6
== END ==
PROVIDERS: PCP Nurse Practitioner Family; Visit Provider Social Worker Clinical
DX: F41.1 Generalized anxiety disorder (principal); F33.2 Major depressive disorder, recurrent severe without psychotic features; F43.12 Post-traumatic stress disorder, chronic
CPT/HCPCS: 90834

== ENCOUNTER → 2020-09-30 11:52 | Outpatient (BNVA) | payer MEDICAID, SELFPAY ==
[2019-12-07 11:57] VITALS: BP 135/89; BMI 51.6
== END ==
PROVIDERS: PCP Nurse Practitioner Family; Visit Provider Social Worker Clinical
DX: F33.2 Major depressive disorder, recurrent severe without psychotic features (principal); F43.12 Post-traumatic stress disorder, chronic
CPT/HCPCS: 90834

== ENCOUNTER → 2020-10-06 12:38 | Outpatient (BNVA) | payer OTHER, SELFPAY ==
[2019-12-07 11:57] VITALS: BP 135/89; BMI 51.6
== END ==
PROVIDERS: PCP Nurse Practitioner Family; Visit Provider Psychiatry & Neurology Psychiatry
DX: F41.1 Generalized anxiety disorder (principal); F33.2 Major depressive disorder, recurrent severe without psychotic features
CPT/HCPCS: 99214

== ENCOUNTER → 2020-10-08 09:56 | Outpatient (BNVA) | payer MEDICAID, SELFPAY ==
[2019-12-07 11:57] VITALS: BP 135/89; BMI 51.6
== END ==
PROVIDERS: PCP Nurse Practitioner Family; Visit Provider Social Worker Clinical
DX: F33.2 Major depressive disorder, recurrent severe without psychotic features (principal); F43.12 Post-traumatic stress disorder, chronic
CPT/HCPCS: 90834

== ENCOUNTER → 2020-10-14 14:41 | Outpatient (BNVA) | payer MEDICAID, SELFPAY ==
[2019-12-07 11:57] VITALS: BP 135/89; BMI 51.6
== END ==
PROVIDERS: PCP Nurse Practitioner Family; Visit Provider Social Worker Clinical
DX: F33.2 Major depressive disorder, recurrent severe without psychotic features (principal); F43.12 Post-traumatic stress disorder, chronic
CPT/HCPCS: 90834

== ENCOUNTER → 2020-10-22 07:31 | Outpatient (BNVA) | payer MEDICAID, SELFPAY ==
[2019-12-07 11:57] VITALS: BP 135/89; BMI 51.6
== END ==
PROVIDERS: PCP Nurse Practitioner Family; Visit Provider Social Worker Clinical
DX: F33.2 Major depressive disorder, recurrent severe without psychotic features (principal); F43.12 Post-traumatic stress disorder, chronic
CPT/HCPCS: 90834

== ENCOUNTER → 2020-11-04 08:53 | Outpatient (BNVA) | payer OTHER, MEDICAID, SELFPAY ==
[2019-12-07 11:57] VITALS: BP 135/89; BMI 51.6
== END ==
PROVIDERS: PCP Nurse Practitioner Family; Visit Provider Social Worker Clinical
DX: F33.2 Major depressive disorder, recurrent severe without psychotic features (principal); F43.12 Post-traumatic stress disorder, chronic
CPT/HCPCS: 90834

== ENCOUNTER → 2020-11-05 10:54 | Outpatient (BNVA) | payer OTHER, SELFPAY ==
[2019-12-07 11:57] VITALS: BP 135/89; BMI 51.6
== END ==
PROVIDERS: PCP Nurse Practitioner Family; Visit Provider Anesthesiology Pain Medicine
DX: G89.29 Other chronic pain (principal); M51.16 Intervertebral disc disorders with radiculopathy, lumbar region; M51.9 Unspecified thoracic, thoracolumbar and lumbosacral intervertebral disc disorder; M19.90 Unspecified osteoarthritis, unspecified site; M62.830 Muscle spasm of back; Z68.43 Body mass index [BMI] 50.0-59.9, adult
CPT/HCPCS: 99214

== ENCOUNTER → 2020-11-11 07:52 | Outpatient (BNVA) | payer OTHER, MEDICAID, SELFPAY ==
[2019-12-07 11:57] VITALS: BP 135/89; BMI 51.6
== END ==
PROVIDERS: PCP Nurse Practitioner Family; Visit Provider Social Worker Clinical
DX: F41.1 Generalized anxiety disorder (principal); F33.2 Major depressive disorder, recurrent severe without psychotic features; F43.12 Post-traumatic stress disorder, chronic
CPT/HCPCS: 90834

== ENCOUNTER → 2020-11-18 08:45 | Outpatient (BNVA) | payer OTHER, MEDICAID, SELFPAY ==
[2019-12-07 11:57] VITALS: BP 135/89; BMI 51.6
== END ==
PROVIDERS: PCP Nurse Practitioner Family; Visit Provider Social Worker Clinical
DX: F41.1 Generalized anxiety disorder (principal); F33.2 Major depressive disorder, recurrent severe without psychotic features; F43.12 Post-traumatic stress disorder, chronic
CPT/HCPCS: 90834

== ENCOUNTER → 2020-11-25 07:35 | Outpatient (BNVA) | payer OTHER, SELFPAY ==
[2019-12-07 11:57] VITALS: BP 135/89; BMI 51.6
== END ==
PROVIDERS: PCP Nurse Practitioner Family; Visit Provider Social Worker Clinical
DX: F41.1 Generalized anxiety disorder (principal); F33.2 Major depressive disorder, recurrent severe without psychotic features; F43.12 Post-traumatic stress disorder, chronic
CPT/HCPCS: 90834

== ENCOUNTER → 2020-12-10 09:54 | Outpatient (BNVA) | payer OTHER, SELFPAY ==
[2019-12-07 11:57] VITALS: BP 135/89; BMI 51.6
== END ==
PROVIDERS: PCP Nurse Practitioner Family; Visit Provider Social Worker Clinical
DX: F41.1 Generalized anxiety disorder (principal); F33.2 Major depressive disorder, recurrent severe without psychotic features; F43.12 Post-traumatic stress disorder, chronic
CPT/HCPCS: 90834

== ENCOUNTER → 2020-12-18 08:55 | Outpatient (BNVA) | payer OTHER, SELFPAY ==
[2019-12-07 11:57] VITALS: BP 135/89; BMI 51.6
== END ==
PROVIDERS: PCP Nurse Practitioner Family; Visit Provider Social Worker Clinical
DX: F41.1 Generalized anxiety disorder (principal); F33.2 Major depressive disorder, recurrent severe without psychotic features; F43.12 Post-traumatic stress disorder, chronic
CPT/HCPCS: 90834

== ENCOUNTER → 2020-12-24 10:00 | Outpatient (BNVA) | payer OTHER, SELFPAY ==
[2020-12-18 11:52] VITALS: BP 131/89; BMI 51.9
== END ==
PROVIDERS: PCP Nurse Practitioner Family; Visit Provider Social Worker Clinical
DX: F41.1 Generalized anxiety disorder (principal); F33.2 Major depressive disorder, recurrent severe without psychotic features; F43.12 Post-traumatic stress disorder, chronic
CPT/HCPCS: 90834

== ENCOUNTER → 2020-12-31 10:02 | Outpatient (BNVA) | payer OTHER, SELFPAY ==
[2020-12-18 11:52] VITALS: BP 131/89; BMI 51.9
== END ==
PROVIDERS: PCP Nurse Practitioner Family; Visit Provider Social Worker Clinical
DX: F41.1 Generalized anxiety disorder (principal); F33.2 Major depressive disorder, recurrent severe without psychotic features; F43.12 Post-traumatic stress disorder, chronic
CPT/HCPCS: 90834

== ENCOUNTER → 2021-01-06 12:40 | Outpatient (BNVA) | payer OTHER, SELFPAY ==
[2020-12-18 11:52] VITALS: BP 131/89; BMI 51.9
== END ==
PROVIDERS: PCP Nurse Practitioner Family; Visit Provider Psychiatry & Neurology Psychiatry
DX: F41.1 Generalized anxiety disorder (principal); F33.2 Major depressive disorder, recurrent severe without psychotic features; F43.10 Post-traumatic stress disorder, unspecified
CPT/HCPCS: 99213

== ENCOUNTER → 2021-01-08 08:47 | Outpatient (BNVA) | payer OTHER, SELFPAY ==
[2020-12-18 11:52] VITALS: BP 131/89; BMI 51.9
== END ==
PROVIDERS: PCP Nurse Practitioner Family; Visit Provider Social Worker Clinical
DX: F41.1 Generalized anxiety disorder (principal); F33.2 Major depressive disorder, recurrent severe without psychotic features; F43.12 Post-traumatic stress disorder, chronic
CPT/HCPCS: 90834

== ENCOUNTER → 2021-01-15 09:50 | Outpatient (BNVA) | payer OTHER, SELFPAY ==
[2020-12-18 11:52] VITALS: BP 131/89; BMI 51.9
== END ==
PROVIDERS: PCP Nurse Practitioner Family; Visit Provider Social Worker Clinical
DX: F41.1 Generalized anxiety disorder (principal); F33.2 Major depressive disorder, recurrent severe without psychotic features; F43.12 Post-traumatic stress disorder, chronic
CPT/HCPCS: 90834

== ENCOUNTER → 2021-01-21 10:37 | Outpatient (BNVA) | payer OTHER, SELFPAY ==
[2020-12-18 11:52] VITALS: BP 131/89; BMI 51.9
== END ==
PROVIDERS: PCP Nurse Practitioner Family; Visit Provider Social Worker Clinical
DX: F41.1 Generalized anxiety disorder (principal); F33.2 Major depressive disorder, recurrent severe without psychotic features; F43.12 Post-traumatic stress disorder, chronic
CPT/HCPCS: 90834

== ENCOUNTER → 2021-01-27 09:06 | Outpatient (BNVA) | payer OTHER, SELFPAY ==
[2020-12-18 11:52] VITALS: BP 131/89; BMI 51.9
== END ==
PROVIDERS: PCP Nurse Practitioner Family; Visit Provider Social Worker Clinical
DX: F41.1 Generalized anxiety disorder (principal); F33.2 Major depressive disorder, recurrent severe without psychotic features; F43.12 Post-traumatic stress disorder, chronic
CPT/HCPCS: 90834

== ENCOUNTER → 2021-02-04 09:50 | Outpatient (BNVA) | payer OTHER, SELFPAY ==
[2020-12-18 11:52] VITALS: BP 131/89; BMI 51.9
== END ==
PROVIDERS: PCP Nurse Practitioner Family; Visit Provider Social Worker Clinical
DX: F41.1 Generalized anxiety disorder (principal); F33.2 Major depressive disorder, recurrent severe without psychotic features; F43.12 Post-traumatic stress disorder, chronic
CPT/HCPCS: 90834

== ENCOUNTER → 2021-02-12 10:40 | Outpatient (BNVA) | payer OTHER, SELFPAY ==
[2020-12-18 11:52] VITALS: BP 131/89; BMI 51.9
== END ==
PROVIDERS: PCP Nurse Practitioner Family; Visit Provider Social Worker Clinical
DX: F41.1 Generalized anxiety disorder (principal); F33.2 Major depressive disorder, recurrent severe without psychotic features; F43.12 Post-traumatic stress disorder, chronic
CPT/HCPCS: 90834

== ENCOUNTER → 2021-02-19 12:27 | Outpatient (BNVA) | payer OTHER, SELFPAY ==
[2020-12-18 11:52] VITALS: BP 131/89; BMI 51.9
== END ==
PROVIDERS: PCP Nurse Practitioner Family; Visit Provider Social Worker Clinical
DX: F41.1 Generalized anxiety disorder (principal); F33.2 Major depressive disorder, recurrent severe without psychotic features; F43.12 Post-traumatic stress disorder, chronic
CPT/HCPCS: 90832

== ENCOUNTER → 2021-02-23 12:39 | Outpatient (BNVA) | payer OTHER, SELFPAY ==
[2020-12-18 11:52] VITALS: BP 131/89; BMI 51.9
== END ==
PROVIDERS: PCP Nurse Practitioner Family; Visit Provider Nurse Practitioner Family
DX: I10 Essential (primary) hypertension (principal); N39.0 Urinary tract infection, site not specified
CPT/HCPCS: 81003

== ENCOUNTER → 2021-02-26 09:48 | Outpatient (BNVA) | payer OTHER, SELFPAY ==
[2020-12-18 11:52] VITALS: BP 131/89; BMI 51.9
== END ==
PROVIDERS: PCP Nurse Practitioner Family; Visit Provider Social Worker Clinical
DX: F41.1 Generalized anxiety disorder (principal); F33.2 Major depressive disorder, recurrent severe without psychotic features; F43.12 Post-traumatic stress disorder, chronic
CPT/HCPCS: 90834

== ENCOUNTER → 2021-03-04 12:35 | Outpatient (BNVA) | payer OTHER, SELFPAY ==
[2020-12-18 11:52] VITALS: BP 131/89; BMI 51.9
== END ==
PROVIDERS: PCP Nurse Practitioner Family; Visit Provider Social Worker Clinical
DX: F41.1 Generalized anxiety disorder (principal); F33.2 Major depressive disorder, recurrent severe without psychotic features; F43.12 Post-traumatic stress disorder, chronic
CPT/HCPCS: 90834

== ENCOUNTER → 2021-03-06 14:46 | Outpatient (BNVA) | payer OTHER, SELFPAY ==
[2020-12-18 11:52] VITALS: BP 131/89; BMI 51.9
== END ==
PROVIDERS: PCP Nurse Practitioner Family; Visit Provider Psychiatry & Neurology Psychiatry
DX: F41.1 Generalized anxiety disorder (principal); F33.2 Major depressive disorder, recurrent severe without psychotic features; F43.10 Post-traumatic stress disorder, unspecified
CPT/HCPCS: 99214

== ENCOUNTER → 2021-03-12 11:51 | Outpatient (BNVA) | payer OTHER, SELFPAY ==
[2020-12-18 11:52] VITALS: BP 131/89; BMI 51.9
== END ==
PROVIDERS: PCP Nurse Practitioner Family; Visit Provider Social Worker Clinical
DX: F41.1 Generalized anxiety disorder (principal); F33.2 Major depressive disorder, recurrent severe without psychotic features; F43.12 Post-traumatic stress disorder, chronic
CPT/HCPCS: 90834

== ENCOUNTER → 2021-03-19 10:45 | Outpatient (BNVA) | payer OTHER, SELFPAY ==
[2020-12-18 11:52] VITALS: BP 131/89; BMI 51.9
== END ==
PROVIDERS: PCP Nurse Practitioner Family; Visit Provider Social Worker Clinical
DX: F41.1 Generalized anxiety disorder (principal); F33.2 Major depressive disorder, recurrent severe without psychotic features; F43.12 Post-traumatic stress disorder, chronic
CPT/HCPCS: 90834

== ENCOUNTER → 2021-04-02 12:37 | Outpatient (BNVA) | payer MEDICAID, SELFPAY ==
[2020-12-18 11:52] VITALS: BP 131/89; BMI 51.9
== END ==
PROVIDERS: PCP Nurse Practitioner Family; Visit Provider Social Worker Clinical
DX: F41.1 Generalized anxiety disorder (principal); F33.2 Major depressive disorder, recurrent severe without psychotic features; F43.12 Post-traumatic stress disorder, chronic
CPT/HCPCS: 90834

== ENCOUNTER → 2021-04-09 12:19 | Outpatient (BNVA) | payer OTHER, SELFPAY ==
[2020-12-18 11:52] VITALS: BP 131/89; BMI 51.9
== END ==
PROVIDERS: PCP Nurse Practitioner Family; Visit Provider Social Worker Clinical
DX: F33.2 Major depressive disorder, recurrent severe without psychotic features (principal); F41.1 Generalized anxiety disorder; F43.12 Post-traumatic stress disorder, chronic; F60.3 Borderline personality disorder
CPT/HCPCS: 90832; 90834

== ENCOUNTER → 2021-04-16 11:49 | Outpatient (BNVA) | payer OTHER, SELFPAY ==
[2020-12-18 11:52] VITALS: BP 131/89; BMI 51.9
== END ==
PROVIDERS: PCP Nurse Practitioner Family; Visit Provider Social Worker Clinical
DX: F41.1 Generalized anxiety disorder (principal); F33.2 Major depressive disorder, recurrent severe without psychotic features; F43.12 Post-traumatic stress disorder, chronic
CPT/HCPCS: 90834

== ENCOUNTER → 2021-04-17 14:58 | Outpatient (BNVA) | payer OTHER, SELFPAY ==
[2020-12-18 11:52] VITALS: BP 131/89; BMI 51.9
== END ==
PROVIDERS: PCP Nurse Practitioner Family; Visit Provider Psychiatry & Neurology Psychiatry
DX: F41.1 Generalized anxiety disorder (principal); F33.2 Major depressive disorder, recurrent severe without psychotic features; F43.10 Post-traumatic stress disorder, unspecified
CPT/HCPCS: 99214

== ENCOUNTER → 2021-04-22 11:36 | Outpatient (BNVA) | payer OTHER, SELFPAY ==
[2020-12-18 11:52] VITALS: BP 131/89; BMI 51.9
== END ==
PROVIDERS: PCP Nurse Practitioner Family; Visit Provider Social Worker Clinical
DX: F41.1 Generalized anxiety disorder (principal); F33.2 Major depressive disorder, recurrent severe without psychotic features; F43.12 Post-traumatic stress disorder, chronic
CPT/HCPCS: 90832; 90834

== ENCOUNTER → 2021-05-07 11:41 | Outpatient (BNVA) | payer OTHER, SELFPAY ==
[2020-12-18 11:52] VITALS: BP 131/89; BMI 51.9
== END ==
PROVIDERS: PCP Nurse Practitioner Family; Visit Provider Social Worker Clinical
DX: F41.1 Generalized anxiety disorder (principal); F33.2 Major depressive disorder, recurrent severe without psychotic features; F43.12 Post-traumatic stress disorder, chronic
CPT/HCPCS: 90834

== ENCOUNTER → 2021-05-12 12:48 | Outpatient (BNVA) | payer OTHER, SELFPAY ==
[2020-12-18 11:52] VITALS: BP 131/89; BMI 51.9
== END ==
PROVIDERS: PCP Nurse Practitioner Family; Visit Provider Social Worker Clinical
DX: F41.1 Generalized anxiety disorder (principal); F33.2 Major depressive disorder, recurrent severe without psychotic features; F43.12 Post-traumatic stress disorder, chronic
CPT/HCPCS: 90834

== ENCOUNTER → 2021-05-20 10:20 | Outpatient (BNVA) | payer OTHER, SELFPAY ==
[2020-12-18 11:52] VITALS: BP 131/89; BMI 51.9
== END ==
PROVIDERS: PCP Nurse Practitioner Family; Visit Provider Nurse Practitioner Family
DX: E11.9 Type 2 diabetes mellitus without complications (principal); M25.50 Pain in unspecified joint; I10 Essential (primary) hypertension; L40.9 Psoriasis, unspecified; E78.5 Hyperlipidemia, unspecified
CPT/HCPCS: 80053; 80061; 82043; 82306; 82607; 83036; 84443; 84550; 85025; 85651; 86038; 86140; 86200; 86431

== ENCOUNTER → 2021-05-21 09:18 | Outpatient (BNVA) | payer OTHER, SELFPAY ==
[2020-12-18 11:52] VITALS: BP 131/89; BMI 51.9
== END ==
PROVIDERS: PCP Nurse Practitioner Family; Visit Provider Social Worker Clinical
DX: F41.1 Generalized anxiety disorder (principal); F33.2 Major depressive disorder, recurrent severe without psychotic features; F43.12 Post-traumatic stress disorder, chronic
CPT/HCPCS: 90834

== ENCOUNTER → 2021-05-28 11:50 | Outpatient (BNVA) | payer OTHER, SELFPAY ==
[2020-12-18 11:52] VITALS: BP 131/89; BMI 51.9
== END ==
PROVIDERS: PCP Nurse Practitioner Family; Visit Provider Social Worker Clinical
DX: F41.1 Generalized anxiety disorder (principal); F33.2 Major depressive disorder, recurrent severe without psychotic features; F43.12 Post-traumatic stress disorder, chronic
CPT/HCPCS: 90834

== ENCOUNTER → 2021-06-11 12:12 | Outpatient (BNVA) | payer OTHER, SELFPAY ==
[2020-12-18 11:52] VITALS: BP 131/89; BMI 51.9
== END ==
PROVIDERS: PCP Nurse Practitioner Family; Visit Provider Social Worker Clinical
DX: F41.1 Generalized anxiety disorder (principal); F33.2 Major depressive disorder, recurrent severe without psychotic features; F43.12 Post-traumatic stress disorder, chronic
CPT/HCPCS: 90832

== ENCOUNTER → 2021-06-18 12:00 | Outpatient (BNVA) | payer OTHER, SELFPAY ==
[2020-12-18 11:52] VITALS: BP 131/89; BMI 51.9
== END ==
PROVIDERS: PCP Nurse Practitioner Family; Visit Provider Social Worker Clinical
DX: F41.1 Generalized anxiety disorder (principal); F33.2 Major depressive disorder, recurrent severe without psychotic features; F43.12 Post-traumatic stress disorder, chronic
CPT/HCPCS: 90832

== ENCOUNTER → 2021-07-06 12:00 | Outpatient (BNVA) | payer OTHER, SELFPAY ==
[2020-12-18 11:52] VITALS: BP 131/89; BMI 51.9
== END ==
PROVIDERS: PCP Nurse Practitioner Family; Visit Provider Social Worker Clinical
DX: F41.1 Generalized anxiety disorder (principal); F33.2 Major depressive disorder, recurrent severe without psychotic features; F43.12 Post-traumatic stress disorder, chronic
CPT/HCPCS: 90834

== ENCOUNTER → 2021-07-08 08:05 | Outpatient (BNVA) | payer OTHER, MEDICAID, SELFPAY ==
[2020-12-18 11:52] VITALS: BP 131/89; BMI 51.9
== END ==
PROVIDERS: PCP Nurse Practitioner Family; Visit Provider Psychiatry & Neurology Psychiatry
DX: F33.2 Major depressive disorder, recurrent severe without psychotic features (principal); F41.1 Generalized anxiety disorder
CPT/HCPCS: 73110; 99214

== ENCOUNTER → 2021-07-22 16:09 | Outpatient (BNVA) | payer OTHER, SELFPAY ==
[2020-12-18 11:52] VITALS: BP 131/89; BMI 51.9
== END ==
PROVIDERS: PCP Nurse Practitioner Family; Visit Provider Social Worker Clinical
DX: F41.1 Generalized anxiety disorder (principal); F33.2 Major depressive disorder, recurrent severe without psychotic features; F43.12 Post-traumatic stress disorder, chronic
CPT/HCPCS: 90832

== ENCOUNTER → 2021-07-27 12:02 | Outpatient (BNVA) | payer OTHER, SELFPAY ==
[2020-12-18 11:52] VITALS: BP 131/89; BMI 51.9
== END ==
PROVIDERS: PCP Nurse Practitioner Family; Visit Provider Social Worker Clinical
DX: F41.1 Generalized anxiety disorder (principal); F33.2 Major depressive disorder, recurrent severe without psychotic features; F43.12 Post-traumatic stress disorder, chronic
CPT/HCPCS: 90834

== ENCOUNTER → 2021-08-10 12:00 | Outpatient (BNVA) | payer OTHER, SELFPAY ==
[2020-12-18 11:52] VITALS: BP 131/89; BMI 51.9
== END ==
PROVIDERS: PCP Nurse Practitioner Family; Visit Provider Social Worker Clinical
DX: F41.1 Generalized anxiety disorder (principal); F33.2 Major depressive disorder, recurrent severe without psychotic features; F43.12 Post-traumatic stress disorder, chronic
CPT/HCPCS: 90832

== ENCOUNTER → 2021-08-17 12:01 | Outpatient (BNVA) | payer OTHER, SELFPAY ==
[2021-08-10 15:22] VITALS: BP 116/80; BMI 52.3
== END ==
PROVIDERS: PCP Nurse Practitioner Family; Visit Provider Social Worker Clinical
DX: F33.2 Major depressive disorder, recurrent severe without psychotic features (principal); M67.432 Ganglion, left wrist; G56.02 Carpal tunnel syndrome, left upper limb; E66.01 Morbid (severe) obesity due to excess calories; Z87.891 Personal history of nicotine dependence; F41.1 Generalized anxiety disorder; F43.12 Post-traumatic stress disorder, chronic
CPT/HCPCS: 73110; 90834; 99204

== ENCOUNTER → 2021-08-19 11:00 | Outpatient (BNVA) | payer MEDICAID, SELFPAY ==
[2021-08-10 15:22] VITALS: BP 116/80; BMI 52.3
== END ==
PROVIDERS: PCP Nurse Practitioner Family; Visit Provider Nurse Practitioner Family
DX: E11.9 Type 2 diabetes mellitus without complications (principal); E55.9 Vitamin D deficiency, unspecified
CPT/HCPCS: 80053; 82306; 83036

== ENCOUNTER → 2021-08-24 12:45 | Outpatient (BNVA) | payer OTHER, SELFPAY ==
[2021-08-10 15:22] VITALS: BP 116/80; BMI 52.3
== END ==
PROVIDERS: PCP Nurse Practitioner Family; Visit Provider Social Worker Clinical
DX: F41.1 Generalized anxiety disorder (principal); F33.2 Major depressive disorder, recurrent severe without psychotic features; F43.12 Post-traumatic stress disorder, chronic
CPT/HCPCS: 90834

== ENCOUNTER → 2021-08-31 12:00 | Outpatient (BNVA) | payer OTHER, SELFPAY ==
[2021-08-10 15:22] VITALS: BP 116/80; BMI 52.3
== END ==
PROVIDERS: PCP Nurse Practitioner Family; Visit Provider Social Worker Clinical
DX: F41.1 Generalized anxiety disorder (principal); F33.2 Major depressive disorder, recurrent severe without psychotic features; F43.12 Post-traumatic stress disorder, chronic
CPT/HCPCS: 90832

== ENCOUNTER → 2021-09-07 10:46 | Outpatient (BNVA) | payer OTHER, SELFPAY ==
[2021-08-10 15:22] VITALS: BP 116/80; BMI 52.3
== END ==
PROVIDERS: PCP Nurse Practitioner Family; Visit Provider Social Worker Clinical
DX: F41.1 Generalized anxiety disorder (principal); F33.2 Major depressive disorder, recurrent severe without psychotic features; F43.12 Post-traumatic stress disorder, chronic
CPT/HCPCS: 90832

== ENCOUNTER → 2021-09-14 12:33 | Outpatient (BNVA) | payer OTHER, SELFPAY ==
[2021-08-10 15:22] VITALS: BP 116/80; BMI 52.3
== END ==
PROVIDERS: PCP Nurse Practitioner Family; Visit Provider Social Worker Clinical
DX: E55.9 Vitamin D deficiency, unspecified (principal); E11.9 Type 2 diabetes mellitus without complications; E66.01 Morbid (severe) obesity due to excess calories; E78.5 Hyperlipidemia, unspecified; F33.2 Major depressive disorder, recurrent severe without psychotic features; F41.1 Generalized anxiety disorder; I10 Essential (primary) hypertension; K21.9 Gastro-esophageal reflux disease without esophagitis; K29.90 Gastroduodenitis, unspecified, without bleeding; M25.50 Pain in unspecified joint; M25.532 Pain in left wrist; R53.83 Other fatigue
CPT/HCPCS: 90834; 80053; 80061; 82306; 83036; 84443; 85651

== ENCOUNTER → 2021-09-30 12:45 | Outpatient (BNVA) | payer OTHER, SELFPAY ==
[2021-08-10 15:22] VITALS: BP 116/80; BMI 52.3
== END ==
PROVIDERS: PCP Nurse Practitioner Family; Visit Provider Social Worker Clinical
DX: F41.1 Generalized anxiety disorder (principal); F33.2 Major depressive disorder, recurrent severe without psychotic features; F43.12 Post-traumatic stress disorder, chronic
CPT/HCPCS: 90834

== ENCOUNTER → 2021-10-08 10:33 | Outpatient (BNVA) | payer OTHER, SELFPAY ==
[2021-08-10 15:22] VITALS: BP 116/80; BMI 52.3
== END ==
PROVIDERS: PCP Nurse Practitioner Family; Visit Provider Social Worker Clinical
DX: F41.1 Generalized anxiety disorder (principal); F33.2 Major depressive disorder, recurrent severe without psychotic features; F43.12 Post-traumatic stress disorder, chronic
CPT/HCPCS: 90834

== ENCOUNTER → 2021-10-09 09:18 | Outpatient (BNVA) | payer OTHER, SELFPAY ==
[2021-08-10 15:22] VITALS: BP 116/80; BMI 52.3
== END ==
PROVIDERS: PCP Nurse Practitioner Family; Visit Provider Psychiatry & Neurology Psychiatry
DX: F43.10 Post-traumatic stress disorder, unspecified (principal); F41.1 Generalized anxiety disorder; F33.2 Major depressive disorder, recurrent severe without psychotic features
CPT/HCPCS: 99214

== ENCOUNTER → 2021-10-15 11:45 | Outpatient (BNVA) | payer OTHER, SELFPAY ==
[2021-08-10 15:22] VITALS: BP 116/80; BMI 52.3
== END ==
PROVIDERS: PCP Nurse Practitioner Family; Visit Provider Social Worker Clinical
DX: F41.1 Generalized anxiety disorder (principal); F33.2 Major depressive disorder, recurrent severe without psychotic features; F43.12 Post-traumatic stress disorder, chronic
CPT/HCPCS: 90834

== ENCOUNTER 2021-10-21 14:55 | Outpatient (CLI) | payer OTHER, SELFPAY ==
[2021-08-10 15:22] VITALS: BP 116/80; BMI 52.3
--- NOTE | 2021-10-21 15:42 | MM_ITS ---
WS: [id number] BILATERAL 3D TOMOSYNTHESIS DIGITAL SCREENING MAMMOGRAM WITH CAD CLINICAL INFORMATION: screening HISTORY: Screening mammogram. No current complaints. COMPARISON: February 04, 2020 TECHNIQUE: Bilateral CC and MLO views. FINDINGS: Fatty-replaced breasts bilaterally. No suspicious focal mass, asymmetry, calcifications, or it security architect ural distortion. No evidence of malignancy. MM/[place] [id number] IMPRESSION: BI-RADS: 1-Negative FOLLOW UP: 1 Year Follow-up Recommend return to annual screening mammography.
== END 2021-10-21 14:56 | disposition home or self-care (01) ==
PROVIDERS: PCP Nurse Practitioner Family; Visit Provider Nurse Practitioner Family
DX: F41.1 Generalized anxiety disorder (principal); F33.2 Major depressive disorder, recurrent severe without psychotic features; F43.12 Post-traumatic stress disorder, chronic
CPT/HCPCS: 90834; 77063; 77067

== ENCOUNTER → 2021-10-28 11:16 | Outpatient (BNVA) | payer OTHER, SELFPAY ==
[2021-08-10 15:22] VITALS: BP 116/80; BMI 52.3
== END ==
PROVIDERS: PCP Nurse Practitioner Family; Visit Provider Social Worker Clinical
DX: F41.1 Generalized anxiety disorder (principal); F33.2 Major depressive disorder, recurrent severe without psychotic features; F43.12 Post-traumatic stress disorder, chronic
CPT/HCPCS: 90834; 90832

== ENCOUNTER 2021-10-30 09:59 | Outpatient (CLI) | payer OTHER, SELFPAY ==
[2021-08-10 15:22] VITALS: BP 116/80; BMI 52.3
--- NOTE | 2021-10-30 10:11 | XR_ITS ---
WS: [id number] XR knee LT 3V* [id number] REASON FOR EXAM: knee pain FINDINGS: Moderate narrowing of the medial knee joint space with subchondral sclerosis and small marginal osteo phytes. Lateral knee joint space is well maintained. There is some narrowing of the patellofemoral joint space with subchondral sclerosis and small margin al osteophytes of the patella. XR/XR knee LT 3V* [id number] IMPRESSION: Moderate osteoarthritis in the medial knee joint compartment with mild to moder ate progression since previous examination of 01/08/2020.
== END 2021-10-30 10:00 | disposition home or self-care (01) ==
LOC: RAD 10:03
PROVIDERS: PCP Nurse Practitioner Family; Visit Provider Nurse Practitioner Family
DX: M17.12 Unilateral primary osteoarthritis, left knee (principal); M25.562 Pain in left knee
CPT/HCPCS: 73562

== ENCOUNTER → 2021-11-18 08:31 | Outpatient (BNVA) | payer OTHER, SELFPAY ==
[2021-08-10 15:22] VITALS: BP 116/80; BMI 52.3
== END ==
PROVIDERS: PCP Nurse Practitioner Family; Referring Provider Nurse Practitioner Family; Visit Provider Orthopaedic Surgery
DX: M17.12 Unilateral primary osteoarthritis, left knee (principal); E66.01 Morbid (severe) obesity due to excess calories
CPT/HCPCS: 99204

== ENCOUNTER → 2021-12-10 10:38 | Outpatient (BNVA) | payer MEDICAID, SELFPAY ==
[2021-08-10 15:22] VITALS: BP 116/80; BMI 52.3
== END ==
PROVIDERS: PCP Nurse Practitioner Family; Referring Provider Specialist; Visit Provider Specialist
DX: M25.532 Pain in left wrist (principal); R20.0 Anesthesia of skin
CPT/HCPCS: 95886; 95908; 95909

== ENCOUNTER → 2021-12-21 14:30 | Outpatient (BNVA) | payer MEDICAID, SELFPAY ==
[2021-12-14 15:11] VITALS: BP 116/80; BMI 52.3
== END ==
PROVIDERS: PCP Nurse Practitioner Family; Visit Provider Nurse Practitioner Family
DX: E11.9 Type 2 diabetes mellitus without complications (principal); I10 Essential (primary) hypertension
CPT/HCPCS: 80053; 83036; 85025

== ENCOUNTER → 2022-02-24 10:20 | Outpatient (BNVA) | payer MEDICAID, SELFPAY ==
[2022-02-05 16:27] VITALS: BP 125/74; BMI 51.8
== END ==
PROVIDERS: PCP Nurse Practitioner Family; Visit Provider Nurse Practitioner Family
DX: E55.9 Vitamin D deficiency, unspecified (principal); E78.5 Hyperlipidemia, unspecified
CPT/HCPCS: 80061; 82306

== ENCOUNTER → 2022-03-23 15:05 | Outpatient (BNVA) | payer MEDICAID, SELFPAY ==
[2022-03-02 10:03] VITALS: BP 125/74; BMI 51.8
== END ==
PROVIDERS: PCP Nurse Practitioner Family; Visit Provider Nurse Practitioner Family
DX: R35.0 Frequency of micturition (principal); J32.9 Chronic sinusitis, unspecified; N39.0 Urinary tract infection, site not specified
CPT/HCPCS: 81000; 81003; 87086

== ENCOUNTER → 2022-06-29 12:00 | Outpatient (BNVA) | payer MEDICAID, SELFPAY ==
[2022-06-28 16:15] VITALS: BP 125/74; BMI 51.8
== END ==
PROVIDERS: PCP Nurse Practitioner Family; Visit Provider Nurse Practitioner Family
DX: E11.9 Type 2 diabetes mellitus without complications (principal); E55.9 Vitamin D deficiency, unspecified; J45.20 Mild intermittent asthma, uncomplicated; E78.5 Hyperlipidemia, unspecified; M51.16 Intervertebral disc disorders with radiculopathy, lumbar region; R23.2 Flushing
CPT/HCPCS: 80053; 80061; 82306; 82607; 83036; 83735; 84443; 85025

== ENCOUNTER 2022-09-24 17:59 | Emergency (ER) | payer MEDICAID, SELFPAY ==
[2022-07-16 14:08] VITALS: BP 125/74; BMI 51.8
[2022-09-24 18:05] VITALS: BP 142/87; PULSE 101; RESP 18; TEMP 36.6; O2SAT 97; BMI 50.1
--- NOTE | 2022-09-24 18:09 | XRR_ITS ---
PROCEDURE INFORMATION: Exam: XR Chest Exam date and time: 09/24/2022 7:01 PM Age: 42 years old Clinical indication: Shortness of breath; Additional info: Weakness TECHNIQUE: Imaging protocol: Radiologic exam of the chest. Views: 1 view. COMPARISON: CR XR chest 2V* [id number] 11/06/2019 3:53 PM FINDINGS: Lungs: Mildly hyperaerated lungs consistent with deep inspiratory effort vs reactive airway disease vs mild COPD . Pleural spaces: Unremarkable. No pleural effusion. No pneumothorax. Heart/Mediastinum: Unremarkable. No cardiomegaly. Bones/joints: Unremarkable. Soft tissues: Examination is limited secondary to body habitus. XR/XR chest 1V portable [id number] IMPRESSION: Mildly hyperaerated lungs consistent with deep inspiratory effort vs reactive airway disease vs mild COPD .
--- NOTE | 2022-09-24 18:10 | ECG_ITS ---
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 Measurements Intervals [place] Rate: 94 P: 61 IA: 168 QRS: -31 QRSD: 93 T: 52 QT: 338 QTc: 424 Interpretive Statements SINUS RHYTHM LEFT AXIS DEVIATION [QRS AXIS < -30] LOW QRS VOLTAGE IN PRECORDIAL LEADS [QRS DEFLECTION < 1.0 mV IN CHEST LEADS] POSSIBLE ANTERIOR MYOCARDIAL INFARCTION , PROBABLY OLD [30 ms Q WAVE IN V3/V4, OR R < 0.2 mV IN V4] INTERPRETATION BASED ON A DEFAULT AGE OF 39 YEARS No previous ECG available for comparison Electronically Signed On 09-25-2022 6:52:35 CDT by Marcelino Bernard M.D. [id number]
[2022-09-24 19:38] LABS: Basophils % 0.4 %; Eosinophils # 0.2 10^3/uL (0.0-0.8); Eosinophils % 2.2 %; Hematocrit 39.6 % (37.0-47.0); Hemoglobin 12.5 g/dL (11.5-15.3); Lymphocytes # 2.5 10^3/uL (0.8-4.8); Lymphocytes % 31.2 %; Mean Corpuscular HGB Conc 31.6 g/dL (30.0-36.0); Mean Corpuscular Hemoglobin 28.1 pg (28.0-34.0); Mean Platelet Volume 8.3 fL (7.4-10.4); Monocytes # 0.5 10^3/uL (0.2-0.9); Monocytes % 6.5 %; Neutrophils # 4.69 10^3/uL (1.8-7.7); Neutrophils % 59.4 %; Nucleated Red Blood Cells % 0 %; Platelet Count 234 10^3/cmm (130-400); Red Blood Count 4.45 10^6/uL (4.1-5.3); Red Cell Distribution Width 13.2 % (12.1-15.1); White Blood Count 7.9 10^3/uL (4.0-10.0)
[2022-09-24 19:59] LABS: Alanine Aminotransferase 16 U/L (0-33); Albumin Level 3.9 g/dL (3.5-5.2); Alkaline Phosphatase 51 U/L (35-105); Anion Gap 14.4 (5-19); Aspartate Amino Transferase 17 U/L (0-32); Blood Urea Nitrogen 22 mg/dL (6-20); Calcium 9.1 mg/dL (8.5-10.5); Carbon Dioxide 27 mmol/L (22-29); Chloride 103 mmol/L (98-107); Globulin 2.5 g/dL (1.3-4.6); Glomerular Filtration Rate 68.3 mL/min (90-130); Glucose 88 mg/dL (65-115); Osmolality Calculated 293 mOsm/kg (285-295); Potassium 4.4 mmol/L (3.5-5.1); Sodium 140 mmol/L (136-145); Total Bilirubin 0.3 mg/dL (0.15-1.2); Total Protein 6.4 g/dL (6.6-8.7)
[2022-09-24 20:02] VITALS: RESP 16
[2022-09-24] MEDS: morphine 4 mg/mL SDV 1 mL IM (20:02)
[2022-09-24] MEDS: ondansetron 2 mg/ML SDV 2 mL 4 MG IM (20:02)
--- NOTE | 2022-09-24 20:10 | W.ED.RECABL ---
HPI - Recheck/Abnormal Lab/Rx General: Chief Complaint: Recheck/Abnormal Lab/Rx Stated Complaint: abd labs, sent by Leon Time Seen by Provider: 09/24/22 18:05 Source: patient Mode of arrival: ambulatory Limitations: no limitations History of Present Illness: 42-year-old female states that she has had some abdominal pain swelling and bloating over the last 2 days. States she saw her PCP yesterday and they called her told her potassium was 7 she had to come to the ER. She has had no decreased urination no vomiting she denies any fever she denies any worsening proving factors. 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 Gage Major depressive disorder, recurrent, moderate Migraine without aura No pertinent past medical history neghx: thyroid,dvt/pe PCP: Emma Lyles Obstructive sleep apnea (adult) (pediatric) Pain management contract signed Peripheral edema Surgical History History of surgical removal of ganglion cyst right wrist Hx of cholecystectomy Hx of tubal ligation 08/2013 Family History Mother Thyroid condition Cataract Father Hypertension Diabetes Heart disease Hypercholesteremia Cancer prostate, skin Grandmother Breast cancer Maternal--dx age unknown Grandfather Stroke Maternal Denies family history of Colon cancer Ovarian cancer Uterine cancer Social History Smoking and tobacco status: smoker, details unknown e-cigarettes E-Cigarette Details: vaporizer device and with nicotine E-cig/vape details: Refill/ 1.5 months Quit status (tobacco): has tried quititng Number of times tried to quit tobacco: 4 Second hand smoke exposure: No Smoking risk assessment/counseling performed?: No Alcohol intake: former Year of sobriety/quit date alcohol: 2017 Desire information about alcohol rehabilitation?: No Counseling given: No Substance/Drug Use: former Date of last use: Marijuana 2020 Desire information about substance/drug rehabilitation?: No Counseling given: No Adopted: No Caregiver/support person: No Lives independently: Yes Household members: spouse and children Housing: Apartment Marital status: Number of children: 4 Number of grandchildren: 2 Highest education level completed: Some College, No Degree service: No Current occupational status: disabled Current occupational exposures/hazards: No Pets and animals: Yes Pets & animals: cat(s) Leisure activites: art, games and other Leisure activities details: watching tv Sexually active: Yes Do you think of yourself as: Straight/Heterosexual Current gender identity: Female Marcia/Zoroastrianism: None Special marcia needs: No Agree to transfusion: Yes Financial difficulty paying for basics: Not Very Hard Female Reproductive History: Para: 4 Spontaneous abortions: No Physical Exam Const: COMMON NORMALS: no acute distress, patient oriented x3 and healthy appearing HENMT: COMMON NORMALS: normocephalic and atraumatic HEAD & SCALP: normocephalic and atraumatic Eye: COMMON NORMALS: conjunctivae normal CONJUNCTIVA: Yes conjunctivae normal Neck/C-Spine: COMMON NORMALS: full ROM and supple Chest: COMMONS NORMALS: normal inspection of the chest and normal palpation of entire chest wall Resp: COMMON NORMALS: normal respiratory effort, No retractions, No use of accessory muscles and clear to auscultation bilaterally AUSCULTATION: clear to auscultation bilaterally Cardio: COMMON NORMALS: regular rate, regular rhythm and No murmurs present (Cardio) RATE: regular rate RHYTHM: regular rhythm GI: COMMON NORMALS: Normal to inspection, nondistended, normoactive bowel sounds present, Soft to palpation, non-tender and no masses PALPATION: Yes Soft to palpation Extremity: COMMON NORMALS: normal to inspection and full ROM Neuro: COMMON NORMALS: patient oriented x3, moves all extremities and no focal motor deficits Psych: COMMON NORMALS: mental status grossly normal, Normal thought process present and cooperative THOUGHT PROCESS: Normal thought process present Skin: COMMON NORMALS: no rashes or lesions noted and no wounds GENERAL SKIN EXAM: no rashes or lesions noted Course Vital Signs: Vital signs: Vital Signs Temperature 97.9 F 09/24/22 18:05 Pulse Rate 101 H 09/24/22 18:05 Respiratory Rate 16 09/24/22 20:02 Blood Pressure 142/87 09/24/22 18:05 Pulse Oximetry 97 09/24/22 18:05 Oxygen Delivery Me thod Room Air 09/24/22 18:05 MDM - Recheck/Abnormal Lab/Rx Medical Decision Making Patient presents here with abdominal pain she does have constipation likely causing her pain her blood work here is all normal I imagine her lab value potassium is 7 yesterday was from a hemolyzed specimen was not correct as her potassium here is 4 4 we will prescribe her MiraLAX her abdominal exam is benign no signs of acute surgical abdomen she is to follow-up with PCP and return if worsening. Lab Data 09/24/22 19:28 09/24/22 19:28 Radiology Impressions Chest X-Ray 09/24/22 18:09 IMPRESSION: Mildly hyperaerated lungs consistent with deep inspiratory effort vs reactive airway disease vs mild COPD . KUB X-Ray 09/24/22 20:14 IMPRESSION: 1. Examination is limited secondary to body habitus. 2. Moderate to severe retained feces. Laboratory Results WBC 7.9 10^3/uL (4.0-10.0) 09/24/22 19:28 RBC 4.45 10^6/uL (4.1-5.3) 09/24/22 19:28 Hgb 12.5 g/dL (11.5-15.3) 09/24/22 19:28 Hct 39.6 % (37.0-47.0) 09/24/22 19: MCV 89.0 fl (81-99) 09/24/22 19: MCH 28.1 pg (28.0-34.0) 09/24/22 19: MCHC 31.6 g/dL (30.0-36.0) 09/24/22 19:28 RDW 13.2 % (12.1-15.1) 09/24/22 19:28 Plt Count 234 10^3/cmm (130-400) 09/24/22 19: MPV 8.3 fL (7.4-10.4) 09/24/22 19: Neut % (Auto) 59.4 % 09/24/22 19: Lymph % (Auto) 31.2 % 09/24/22 19: [place] % (Auto) 6.5 % 09/24/22 19: Eos % (Auto) 2.2 % 09/24/22 19: Baso % (Auto) 0.4 % 09/24/22 19: Neut # (Auto) 4.69 10^3/uL (1.8-7.7) 09/24/22 19: Lymph # (Auto) 2.5 10^3/uL (0.8-4.8) 09/24/22: [place] # (Auto) 0.5 10^3/uL (0.2-0.9) 09/24/22 19: Eos # (Auto) 0.2 10^3/uL (0.0-0.8) 09/24/22 19: Baso # (Auto) 0.0 10^3/uL (0.0-0.1) 09/24/22 19: Nucleated RBC % (auto) 0 % 09/24/22: Nucleated RBCs # 0.0 /100WBC 09/24/22 19: Sodium 140 mmol/L (136-145) 09/24/22 19: Potassium 4.4 mmol/L (3.5-5.1) 09/24/22: Chloride 103 mmol/L (98-107) 09/24/22 19: Carbon Dioxide 27 mmol/L (22-29) 09/24/22 19: Anion Gap 14.4 (5-19) 09/24/22 19: BUN 22 mg/dL (6-20) H 09/24/22 19: Creatinine 0.9 mg/dL (0.5-0.9) 09/24/22 19: GFR Calculation 68.3 mL/min (90-130) L 09/24/22 19: Glucose 88 mg/dL (65-115) 09/24/22 19: Calculated Osmolality 293 mOsm/kg (285-295) 09/24/22 19:28 Calcium 9.1 mg/dL (8.5-10.5) 09/24/22 19:28 Total Bilirubin 0.3 mg/dL (0.15-1.2) 09/24/22 19:28 AST 17 U/L (0-32) 09/24/22 19: ALT 16 U/L (0-33) 09/24/22 19: Alkaline Phosphatase 51 U/L (35-105) 09/24/22 19: Total Protein 6.4 g/dL (6.6-8.7) L 09/24/22 19: Albumin 3.9 g/dL (3.5-5.2) 09/24/22 19: Globulin 2.5 g/dL (1.3-4.6) 09/24/22 19: Lipase 34 U/L (13-60) 09/24/22 19:28 Discharge Plan Discharge Patient Disposition: Home Clinical Impression: Constipation Condition: Stable Prescriptions: New Miralax 17 gram powder in packet 17 g PO DAILY PRN (Reason: constipation) Qty: 14 0RF No Action triamcinolone acetonide 0.1 % cream 1 applic TOPICAL BID Qty: 80 1RF (DME) compress.stocking,knee,reg,lrg Misc See Rx Instructions .Route Qty: 2 0RF Rx Instructions: on in the morning and off at bedtime clobetasol 0.05 % solution 1 applic topical DAILY Qty: 50 5RF Rx Instructions: to itchy areas on scalp prn omega-3 fatty acids 1,000 mg capsule 1,000 mg PO DAILY esomeprazole magnesium [Nexium 24HR] 20 mg capsule,delayed release(DR/EC) 20 mg PO DAILY diclofenac sodium [Voltaren Arthritis Pain] 1 % gel 4 g topical QID Qty: 100 0RF Rx Instructions: apply to single knee, ankle, foot; for foot includes sole/toes/top of foot desvenlafaxine succinate [Pristiq] 50 mg tablet extended release 24 hr 50 mg PO DAILY Qty: 30 2RF fluticasone propionate [Flonase Allergy Relief] 50 mcg/actuation spray,suspension 1 spray intranasal DAILY Rx Instructions: administer into each nostril amitriptyline 50 mg tablet 50 mg PO .HS Qty: 30 2RF escitalopram oxalate [Lexapro] 20 mg tablet 20 mg PO DAILY Qty: 30 2RF buspirone 10 mg tablet 20 mg PO BID Qty: 120 2RF tizanidine 4 mg tablet See Rx Instructions .ROUTE .COMPLEX Qty: 60 2RF Dose Instruction: TAKE 1 TABLET BY MOUTH TWICE DAILY NEEDED FOR MUSCLE SPASTICITY Rx Instructions: TAKE 1 TABLET BY MOUTH BID NEEDED FOR MUSCLE SPASTICITY ondansetron HCl 4 mg tablet 4 mg PO Q6H PRN (Reason: nausea and vomiting) Qty: 90 0RF amoxicillin-pot clavulanate [Augmentin] 500-125 mg tablet 1 tab PO BID 10 Days Qty: 20 0RF azelastine 137 mcg (0.1 %) aerosol,spray 2 spray intranasal BID Qty: 30 0RF Rx Instructions: administer into each nostril albuterol sulfate [ProAir HFA] 90 mcg/actuation HFA aerosol inhaler 2 puff INHALATION Q4H PRN (Reason: shortness of breath or wheezing) Qty: 6.7 2RF Trulicity 0.75 mg/0.5 mL pen injector 0.75 mg SUBCUT .weekly Qty: 2 2RF (DME) blood-glucose meter [Blood Glucose Monitoring] Kit See Rx Instructions .ROUTE .MEDSUPPLY Qty: 1 0RF Rx Instructions: To test one x day and prn pimecrolimus [Elidel] 1 % cream See Rx Instructions .ROUTE .COMPLEX Qty: 100 0RF Dose Instruction: APPLY TO AFFECTED AREAS AROUND EYES AND FACE TWICE DAILY NEEDED Rx Instructions: APPLY TO AFFECTED AREAS AROUND EYES AND FACE TWICE DAILY NEEDED (DME) Blood Glucose Test Strip See Rx Instructions .ROUTE .MEDSUPPLY Qty: 100 4RF Rx Instructions: to test one x day and prn (DME) lancets [Lancets,Thin] Misc See Rx Instructions .ROUTE .MEDSUPPLY Qty: 100 4RF Rx Instructions: to test one x day and prn montelukast 10 mg tablet See Rx Instructions .ROUTE .COMPLEX Qty: 30 11RF Dose Instruction: TAKE 1 TABLET BY MOUTH EVERY MORNING Rx Instructions: TAKE 1 TABLET BY MOUTH EVERY MORNING meloxicam 15 mg tablet See Rx Instructions .ROUTE .COMPLEX Qty: 30 11RF Dose Instruction: TAKE 1 TABLET BY MOUTH EVERY NIGHT AT BEDTIME Rx Instructions: TAKE 1 TABLET BY MOUTH EVERY NIGHT AT BEDTIME gabapentin 300 mg capsule See Rx Instructions .ROUTE .COMPLEX Qty: 60 11RF Dose Instruction: TAKE ONE CAPSULE BY MOUTH EVERY MORNING AND EVERY NIGHT AT BEDTIME FOR PAIN Rx Instructions: TAKE ONE CAPSULE BY MOUTH EVERY MORNING AND EVERY NIGHT AT BEDTIME FOR PAIN levocetirizine 5 mg tablet See Rx Instructions .ROUTE .COMPLEX Qty: 60 11RF Dose Instruction: TAKE 1 TABLET BY MOUTH EVERY MORNING AND EVERY NIGHT AT BEDTIME Rx Instructions: TAKE 1 TABLET BY MOUTH EVERY MORNING AND EVERY NIGHT AT BEDTIME famotidine 20 mg tablet See Rx Instructions .ROUTE .COMPLEX Qty: 60 2RF Dose Instruction: TAKE 1 TABLET BY MOUTH EVERY MORNING AND EVERY NIGHT AT BEDTIME Rx Instructions: TAKE 1 TABLET BY MOUTH EVERY MORNING AND EVERY NIGHT AT BEDTIME ergocalciferol (vitamin D2) 1,250 mcg (50,000 unit) capsule See Rx Instructions .ROUTE .COMPLEX Qty: 4 2RF Dose Instruction: TAKE ONE CAPSULE BY MOUTH EVERY WEEK ON TUESDAY Rx Instructions: TAKE ONE CAPSULE BY MOUTH EVERY WEEK ON TUESDAY rosuvastatin 20 mg tablet See Rx Instructions .ROUTE .COMPLEX Qty: 30 11RF Dose Instruction: TAKE 1 TABLET BY MOUTH EVERY MORNING Rx Instructions: TAKE 1 TABLET BY MOUTH EVERY MORNING Discharge Orders: Discharge ED (Routine); Ordered 09/24/22 Ordered By: Sera Murrieta Referrals: Jenn Leon NP [Primary Care Provider] - 1-3 days Discharge Diet: Advance as tolerated Discharge Activity: Resume usual activity Patient Instructions: Constipation (ED) Coding Level of Care Code ED [employer] for Scarlet Alvarez
--- NOTE | 2022-09-24 20:14 | XRR_ITS ---
PROCEDURE INFORMATION: Exam: XR Abdomen Exam date and time: 09/24/2022 8:19 PM Age: 42 years old Clinical indication: Constipation TECHNIQUE: Imaging protocol: Radiologic exam of the abdomen. Views: Frontal supine view of the abdomen. 1 View. COMPARISON: CT abdomen pelvis wo con [id number] 09/19/2018 10:42 AM FINDINGS: Gastrointestinal tract: Moderate to severe retained feces. Bones/joints: Unremarkable. Soft tissues: Examination is limited secondary to body habitus. XR/XR KUB [id number] IMPRESSION: 1. Examination is limited secondary to body habitus. 2. Moderate to severe retained feces.
[2022-09-24 20:32] LABS: Lipase 34 U/L (13-60)
[2022-09-24 21:02] VITALS: BP 134/76; PULSE 72; RESP 16; O2SAT 100
== END 2022-09-24 21:04 | disposition home or self-care (01) ==
PROVIDERS: Emergency Provider Emergency Medicine; PCP Nurse Practitioner Family
DX: K59.00 Constipation, unspecified (principal); Z79.85 Long-term (current) use of injectable non-insulin antidiabetic drugs; F17.290 Nicotine dependence, other tobacco product, uncomplicated
CPT/HCPCS: 36415; 71045; 74018; 80053; 80061; 82043; 83036; 83690; 85025; 93005; 96372; 96374; 96375; 99285; J2270; J2405

== ENCOUNTER → 2023-01-04 10:27 | Outpatient (BNVA) | payer MEDICAID, SELFPAY ==
[2022-07-16 14:08] VITALS: BP 125/74; BMI 51.8
== END ==
PROVIDERS: PCP Nurse Practitioner Family; Visit Provider Nurse Practitioner Family
DX: M17.12 Unilateral primary osteoarthritis, left knee (principal); R50.9 Fever, unspecified; J32.9 Chronic sinusitis, unspecified; R53.83 Other fatigue
CPT/HCPCS: 81000; 87400; 87426

== ENCOUNTER → 2023-01-18 12:02 | Outpatient (BNVA) | payer MEDICAID, SELFPAY ==
[2022-07-16 14:08] VITALS: BP 125/74; BMI 51.8
== END ==
PROVIDERS: PCP Nurse Practitioner Family; Visit Provider Nurse Practitioner Family
DX: I10 Essential (primary) hypertension (principal); B37.31 Acute candidiasis of vulva and vagina
CPT/HCPCS: 81003

== ENCOUNTER → 2023-05-11 09:28 | Outpatient (BNVA) | payer MEDICAID, SELFPAY ==
[2022-07-16 14:08] VITALS: BP 125/74; BMI 51.8
== END ==
PROVIDERS: PCP Nurse Practitioner Family; Visit Provider Nurse Practitioner Family
DX: E11.9 Type 2 diabetes mellitus without complications (principal); E55.9 Vitamin D deficiency, unspecified
CPT/HCPCS: 80053; 80061; 82306; 83036; 84443; 85025

== ENCOUNTER → 2023-07-06 11:50 | Outpatient (BNVA) | payer MEDICAID, SELFPAY ==
[2022-07-16 14:08] VITALS: BP 125/74; BMI 51.8
== END ==
PROVIDERS: PCP Nurse Practitioner Family; Visit Provider Nurse Practitioner Family
DX: M79.7 Fibromyalgia; E55.9 Vitamin D deficiency, unspecified
CPT/HCPCS: 80053; 82306; 82607; 83735; 85025; 85651; 86140

== ENCOUNTER → 2023-09-07 12:13 | Outpatient (BNVA) | payer MEDICAID, SELFPAY ==
[2022-07-16 14:08] VITALS: BP 125/74; BMI 51.8
== END ==
PROVIDERS: PCP Nurse Practitioner Family; Visit Provider Nurse Practitioner Family
DX: R30.0 Dysuria (principal); E53.8 Deficiency of other specified B group vitamins; M79.7 Fibromyalgia; N30.00 Acute cystitis without hematuria
CPT/HCPCS: 81003; 87086

== ENCOUNTER → 2023-09-14 13:04 | Outpatient (BNVA) | payer MEDICAID, SELFPAY ==
[2022-07-16 14:08] VITALS: BP 125/74; BMI 51.8
== END ==
PROVIDERS: PCP Nurse Practitioner Family; Visit Provider Nurse Practitioner Family
DX: E53.8 Deficiency of other specified B group vitamins (principal)
CPT/HCPCS: 82607

== ENCOUNTER → 2023-10-24 12:12 | Outpatient (BNVA) | payer MEDICAID, SELFPAY ==
[2022-07-16 14:08] VITALS: BP 125/74; BMI 51.8
== END ==
PROVIDERS: PCP Nurse Practitioner Family; Visit Provider Nurse Practitioner Family
DX: N93.9 Abnormal uterine and vaginal bleeding, unspecified (principal); E11.9 Type 2 diabetes mellitus without complications; R03.0 Elevated blood-pressure reading, without diagnosis of hypertension; Z79.899 Other long term (current) drug therapy
CPT/HCPCS: 80053; 80061; 83036; 84443; 85025

== ENCOUNTER → 2023-10-27 10:11 | Outpatient (BNVA) | payer MEDICAID, SELFPAY ==
[2022-07-16 14:08] VITALS: BP 125/74; BMI 51.8
== END ==
PROVIDERS: PCP Nurse Practitioner Family; Visit Provider Nurse Practitioner Family
DX: N93.9 Abnormal uterine and vaginal bleeding, unspecified (principal); E53.8 Deficiency of other specified B group vitamins
CPT/HCPCS: 82607; 85025

== ENCOUNTER → 2023-11-30 12:24 | Outpatient (BNVA) | payer MEDICAID, SELFPAY ==
[2022-07-16 14:08] VITALS: BP 125/74; BMI 51.8
== END ==
PROVIDERS: PCP Nurse Practitioner Family; Visit Provider Nurse Practitioner Women's Health
DX: N92.1 Excessive and frequent menstruation with irregular cycle (principal); N94.6 Dysmenorrhea, unspecified; N85.2 Hypertrophy of uterus; D25.1 Intramural leiomyoma of uterus
CPT/HCPCS: 76830

== ENCOUNTER → 2024-01-04 15:09 | Outpatient (BNVA) | payer MEDICAID, SELFPAY ==
[2022-07-16 14:08] VITALS: BP 125/74; BMI 51.8
== END ==
PROVIDERS: PCP Nurse Practitioner Family; Visit Provider Nurse Practitioner Family
DX: W57.XXXA Bitten or stung by nonvenomous insect and other nonvenomous arthropods, initial encounter (principal); X58.XXXA Exposure to other specified factors, initial encounter
CPT/HCPCS: 80053; 85025

== ENCOUNTER 2024-01-27 20:58 | Inpatient (IN) | payer MEDICAID, SELFPAY ==
[2022-07-16 14:08] VITALS: BP 125/74; BMI 51.8
[2024-01-27 20:59] VITALS: BP 149/92; PULSE 83; RESP 18; TEMP 36.5; O2SAT 98; BMI 54.8
--- NOTE | 2024-01-27 21:12 | CTR_ITS ---
PROCEDURE INFORMATION: Exam: CTA Head With Contrast, Arteriography Exam date and time: 01/27/2024 9:21 PM Age: 43 years old Clinical indication: Speech disturbance; Type not specified; Additional info: Stroke TIA TECHNIQUE: Imaging protocol: Computed tomographic angiography of the head with contrast. Exam focused on the arteries. 3D rendering (Not supervised by radiologist): MIP and/or 3D reconstructed images were created by the technologist. Radiation optimization: All CT scans at this facility use at least one of these dose optimization techniques: automated exposure control; mA and/or kV adjustment per patient size (includes targeted exams where dose is matched to clinical indication); or iterative reconstruction. Contrast material: OMNI; Contrast volume: 100 ml; Contrast route: INTRAVENOUS (IV); COMPARISON: CT head thrombolytic [id number] 01/27/2024 9:19 PM RADIATION DOSE METRICS: Total DLP (mGy-cm): 1172.56 FINDINGS: ANTERIOR CIRCULATION: Right internal carotid artery: Intracranial segment is patent with no significant stenosis. No aneurysm. Right middle cerebral artery: No occlusion or significant stenosis. No aneurysm. Right anterior cerebral artery: No occlusion or significant stenosis. No aneurysm. Left internal carotid artery: Intracranial segment is patent with no significant stenosis. No aneurysm. Left middle cerebral artery: No occlusion or significant stenosis. No aneurysm. Left anterior cerebral artery: No occlusion or significant stenosis. No aneurysm. POSTERIOR CIRCULATION: Right vertebral artery: No occlusion or significant stenosis. No aneurysm. Left vertebral artery: No occlusion or significant stenosis. No aneurysm. Basilar artery: No occlusion or significant stenosis. No aneurysm. Right posterior cerebral artery: No occlusion or significant stenosis. No aneurysm. Left posterior cerebral artery: No occlusion or significant stenosis. No aneurysm. Brain: No definite mass, mass effect, or midline shift. Cerebral ventricles: No ventriculomegaly. Bones/joints: Unremarkable. No acute fracture. Soft tissues: Unremarkable. PROCEDURE INFORMATION: Exam: CTA Neck With Contrast Exam date and time: 01/27/2024 9:21 PM Age: 43 years old Clinical indication: Speech disturbance; Type not specified; Additional info: Stroke TIA TECHNIQUE: Imaging protocol: Computed tomographic angiography of the neck with contrast. Exam focused on the cervical segments of the vasculature. 3D rendering (Not supervised by radiologist): MIP and/or 3D reconstructed images were created by the technologist. Radiation optimization: All CT scans at this facility use at least one of these dose optimization techniques: automated exposure control; mA and/or kV adjustment per patient size (includes targeted exams where dose is matched to clinical indication); or iterative reconstruction. Contrast material: OMNI; Contrast volume: 100 ml; Contrast route: INTRAVENOUS (IV); COMPARISON: CT head thrombolytic [id number] 01/27/2024 9:19 PM RADIATION DOSE METRICS: Total DLP (mGy-cm): 0 FINDINGS: Right common carotid artery: No stenosis. No dissection or occlusion. Right internal carotid artery: No stenosis of the extracranial segment. No dissection or occlusion. Right external carotid artery: No occlusion or stenosis of the origin. Left common carotid artery: No stenosis. No dissection or occlusion. Left internal carotid artery: No stenosis of the extracranial segment. No dissection or occlusion. Left external carotid artery: No occlusion or stenosis of the origin. Right vertebral artery: No stenosis. No dissection or occlusion. Left vertebral artery: No stenosis. No dissection or occlusion. Soft tissues: Normal. No significant soft tissue swelling. Bones/joints: No acute fracture. CT/CT angio headne* [id number] IMPRESSION: No large vessel stenosis or occlusion. IMPRESSION: No stenosis or occlusion. REFERENCES: NASCET CRITERIA. The degree of stenosis in the cervical segment of the internal carotid artery is based on NASCET criteria. Normal is no stenosis. Mild is less than 50% stenosis. Moderate is 50-69% stenosis. Severe is 70% to 99% stenosis. Total occlusion is no detectable patent lumen.
--- NOTE | 2024-01-27 21:12 | XRR_ITS ---
PROCEDURE INFORMATION: Exam: XR Chest Exam date and time: 01/27/2024 9:36 PM Age: 43 years old Clinical indication: Other: TIA TECHNIQUE: Imaging protocol: Radiologic exam of the chest. Views: 1 view. COMPARISON: CR XR chest 1V portable [id number] 09/24/2022 7:01 PM FINDINGS: Lungs: Unremarkable. No consolidation. Pleural spaces: Unremarkable. No pleural effusion. No pneumothorax. Heart/Mediastinum: Unremarkable. No cardiomegaly. Bones/joints: Unremarkable. XR/XR chest 1V portable [id number] IMPRESSION: No acute findings.
--- NOTE | 2024-01-27 21:12 | CTR_ITS ---
PROCEDURE INFORMATION: Exam: CT Head Without Contrast Exam date and time: 01/27/2024 9:19 PM Age: 43 years old Clinical indication: Stroke-like symptoms; Speech disturbance; Additional info: Symptoms of acute stroke TECHNIQUE: Imaging protocol: Computed tomography of the head without contrast. Radiation optimization: All CT scans at this facility use at least one of these dose optimization techniques: automated exposure control; mA and/or kV adjustment per patient size (includes targeted exams where dose is matched to clinical indication); or iterative reconstruction. Other technique: STROKE PROTOCOL was implemented. COMPARISON: No relevant prior studies available. RADIATION DOSE METRICS: Total DLP (mGy-cm): 1123.18 FINDINGS: Brain: No hemorrhage. No edema. 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 No mass effect. Cerebral ventricles: No ventriculomegaly. Paranasal sinuses: Visualized sinuses are unremarkable. No fluid levels. Mastoid air cells: Visualized mastoid air cells are well aerated. Bones: Unremarkable. No acute fracture. Soft tissues: Unremarkable. CT/CT head thrombolytic [id number] IMPRESSION: 1. No acute intracranial abnormality. 2. 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 ASSESSMENT: ASPECTS ([facility] Stroke Program Early CT Score) is 10.
--- NOTE | 2024-01-27 21:21 | W.ED.NEUROSD ---
HPI - Neuro Symptoms/Deficit General: Chief Complaint: Neuro Symptoms/Deficit Stated Complaint: RIGHT FACIAL NUMBNESS Time Seen by Provider: 01/27/24 21:01 History of Present Illness: 43-year-old female with a history of diabetes, obesity, borderline hypertension who presents with right face and right arm numbness and weakness that occurred approximately 20 minutes prior to arrival. Her symptoms have completely resolved at this time. She states that her right arm felt like it was asleep with associated weakness and she had numbness of the right face and was drooling on the right side. This lasted about 20 minutes. The leg was not involved. She states she was also having a little difficulty speaking. She has had borderline elevated blood pressure recently. She is a type II diabetic. No prior history of stroke. She has had a headache for the past 2 weeks in association with elevated blood pressures Associated symptoms: Reports headache(s); Deny chest pain, nausea, vertigo or vomiting Related Data Home Medications Medication Instructions Recorded Confirmed omega-3 fatty acids 1,000 mg 1,000 mg PO DAILY 10/16/19 01/25/24 capsule esomeprazole magnesium 20 mg 20 mg PO DAILY 10/06/20 01/25/24 capsule,delayed release (Nexium 24HR) Previous Rx's Medication Instructions Recorded blood-glucose meter (Blood Glucose #1 ea 12/26/19 Monitoring kit) compress.stocking,knee,reg,lrg #2 ea 03/02/21 clobetasol 0.05 % scalp solution 1 applic topical DAILY #50 mL 05/20/21 Elidel 1 % topical cream See Rx Instructions .Route 07/23/21 (pimecrolimus) .COMPLEX #100 grams blood sugar diagnostic (Blood #100 ea 10/14/21 Glucose Test strips) lancets (Lancets,Thin) #100 ea 10/14/21 albuterol sulfate 90 mcg/actuation 2 puff inhalation Q4H PRN 09/23/22 aerosol inhaler (ProAir HFA) shortness of breath or wheezing #6.7 grams polyethylene glycol 3350 17 gram 17 g PO DAILY PRN constipation #14 09/24/22 oral powder packet (Miralax) ea diclofenac sodium 1 % topical gel 4 g topical QID #100 grams 12/31/22 (Voltaren Arthritis Pain) cpap supplies #1 ea 07/11/23 levocetirizine 5 mg tablet See Rx Instructions .Route 08/18/23 .COMPLEX #60 tabs fluconazole 100 mg tablet 100 mg PO DAILY #7 tabs 09/09/23 (Diflucan) rosuvastatin 20 mg tablet See Rx Instructions .Route 09/13/23 .COMPLEX #30 tabs azelastine 137 mcg (0.1 %) nasal 2 spray intranasal BID #30 mL 09/28/23 spray pregabalin 150 mg capsule 150 mg PO BID 30 days #60 caps 09/28/23 amitriptyline 50 mg tablet 50 mg PO .HS #30 tabs 10/18/23 dulaglutide 0.75 mg/0.5 mL See Rx Instructions .Route 11/09/23 subcutaneous pen injector .COMPLEX #2 mL (Trulicity) famotidine 20 mg tablet See Rx Instructions .Route 11/11/23 .COMPLEX #60 tabs norgestimate 0.25 mg-ethinyl 1 tab PO DAILY #84 tabs 11/22/23 estradiol 35 mcg tablet (Sprintec (28)) meloxicam 15 mg tablet See Rx Instructions .Route 12/19/23 .COMPLEX #30 tabs montelukast 10 mg tablet See Rx Instructions .Route 12/19/23 .COMPLEX #30 tabs triamcinolone acetonide 0.1 % 1 applic topical BID 14 days #80 12/28/23 topical cream grams buspirone 10 mg tablet 20 mg (2 x 10 mg) PO BID #120 tabs 01/16/24 escitalopram oxalate 20 mg tablet 20 mg PO DAILY #30 tabs 01/16/24 (Lexapro) vilazodone 20 mg tablet (Viibryd) 20 mg PO DAILY #30 tabs 01/25/24 Allergies Allergy/AdvReac Type Severity Reaction Status Date / Time methylprednisolone Allergy Severe Blood Verified 01/25/24 11:23 sugar jumped to 200 latex Allergy Intermediate rash/swelli Verified 01/25/24 11:23 ng topiramate [From Topamax] Allergy Unknown Unknown Verified 01/25/24 11:23 fluticasone [From Flonase] Allergy Unknown Verified 01/25/24 11:23 bupropion [From Wellbutrin] AdvReac Intermediate rash & Verified 01/25/24 11:23 swelling codeine AdvReac Intermediate N & V . Verified 01/25/24 11:23 Stomach upset metformin AdvReac Intermediate Upset Verified 01/25/24 11:23 stomach nitrofurantoin AdvReac Intermediate N & V. Verified 01/25/24 11:23 Stomach upset. Review of Systems Const: Denies: fever(s), chills or body aches Eyes: Denies: change in vision, blurry vision or eye discomfort ENMT: Denies: throat pain or odynophagia Card: Denies: chest pain, palpitations or irregular heart rhythm Resp: Denies: dyspnea GI: Denies: abdominal pain, nausea or vomiting Musc: Reports: extremity swelling (Legs have been swollen recently, for several weeks); Denies: neck pain, back pain or extremity pain Neuro: Reports: headache(s), numbness in extremities, weakness in extremities, sensory changes and other (Tremor of upper extremities); Denies: lack of coordination, difficulty walking, dizziness, vertigo, confusion, behavioral changes, Slurred speech present, difficulty communicating thoughts or seizure-like activity PFSH ED PFSH: Medical History No pertinent past medical history neghx: thyroid,dvt/pe PCP: Emma Lyles Migraine without aura Gastritis and duodenitis GERD (gastroesophageal reflux disease) Peripheral edema Allergy-induced asthma Major depressive disorder, 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 Gage Pain management contract signed Obstructive sleep apnea (adult) (pediatric) Generalized anxiety disorder Surgical History History of surgical removal of ganglion cyst right wrist Hx of tubal ligation 08/2013 Hx of cholecystectomy Family History Mother Thyroid disease Cataract Father Hypertension Diabetes Heart disease Hypercholesteremia Cancer prostate, skin Grandmother Breast cancer Maternal--dx age unknown Grandfather Stroke Maternal Denies family history of Colon cancer Ovarian cancer Uterine cancer Social History Smoking and tobacco/nicotine status: never used tobacco/nicotine Quit status (tobacco/nicotine): has tried quititng Number of times tried to quit tobacco: 4 Second hand smoke exposure: No Alcohol intake: former Year of sobriety/quit date alcohol: 2017 Substance/Drug Use: former Date of last use: Marijuana - 2020 Adopted: No Caregiver/support person: No Lives independently: Yes Household members: spouse and children Housing: Apartment Marital status: Number of children: 4 Number of grandchildren: 2 Highest education level completed: Some College, No Degree service: No Current occupational status: disabled Current occupational exposures/hazards: No Pets and animals: Yes Pets & animals: cat(s) Leisure activites: art, games and other Leisure activities details: watching tv Sexually active: Yes Do you think of yourself as: Straight/Heterosexual Current gender identity: Female Marcia/Mormon: None Special marcia needs: No Agree to transfusion: Yes Female Reproductive History: Para: 4 Spontaneous abortions: No NIH stroke score NIHSS: Level Of Consciousness - 1a: 0 Level Of Consciousness Questions - 1b: Both Correct Level Of Consciousness Commands - 1c: Both Correct Best Gaze - 2: Normal Visual Elena - 3: No Visual Loss Facial Palsy - 4: Normal Motor Arm Right - 5: No Drift Motor Arm Left - 5: No Drift Motor Leg Right - 6: No Drift Motor Leg Left - 6: No Drift Limb Ataxia - 7: Absent Sensory - 8: Normal Best Language - 9: No Aphasia Dysarthia - 10: Normal Extinction And Inattention - 11: 0 Score: Total Score: 0 Physical Exam Narrative: EXAM NARRATIVE: Obese white female, no acute distress Const: COMMON NORMALS: patient oriented x3 HENMT: COMMON NORMALS: normocephalic, atraumatic, external ears normal, Normal external nose present and moist oral mucous membranes HEAD & SCALP: normocephalic and atraumatic FACE & SINUS: normal facial exam and face symmetric NOSE: Normal external nose present EXTERNAL EAR: Yes external ears normal Eye: COMMON NORMALS: Equal, round and reactive pupils present, EOMs intact bilaterally and conjunctivae normal CONJUNCTIVA: Yes conjunctivae normal PUPIL: Yes Equal, round and reactive pupils present Neck/C-Spine: COMMON NORMALS: full ROM, no lymphadenopathy, supple and No carotid bruits Resp: COMMON NORMALS: normal respiratory effort and No retractions Cardio: COMMON NORMALS: regular rate and regular rhythm RATE: regular rate RHYTHM: regular rhythm GI: COMMON NORMALS: Normal to inspection, nondistended, normoactive bowel sounds present, Soft to palpation and non-tender PALPATION: Yes Soft to palpation Extremity: COMMON NORMALS: full ROM, no calf tenderness and no pedal edema (1+ edema bilaterally, calves are soft) Neuro: COMMON NORMALS: patient oriented x3, CN's II-XII intact bilaterally, moves all extremities, no focal motor deficits and no sensory deficits noted Skin: OTHER: Venous stasis changes of her lower extremities bilaterally Course ED course: Patient's symptoms remain completely resolved. Her blood pressure remains slightly elevated at 158/95. Patient's been given aspirin 324 mg as well as Plavix 300 mg. Given the patient's multiple risk factors, borderline hypertension, patient will need admission for completion of her workup and observation. Patient probably will need blood pressure management. Have discussed with the hospitalist to is in agreement for admission. Consultations: Consultation #1: Discussed with Dr. Petty for admission Vital Signs: Vital signs: Vital Signs Temperature 97.7 F 01/27/24 20:59 Pulse Rate 83 01/27/24 20:59 Respiratory Rate 18 01/27/24 20:59 Blood Pressure 149/92 01/27/24 20:59 Pulse Oximetry 98 01/27/24 20:59 Oxygen Delivery Me thod Room Air 01/27/24 20:59 MDM - Neuro Symptoms/Deficit Medical Decision Making 43-year-old female with a history of borderline hypertension, type 2 diabetes, obesity, who presents with right arm and face numbness and weakness which lasted 20 minutes, symptoms are resolved at this time. Patient's blood pressure is mildly elevated here. Will proceed with CVA workup. Patient will likely need admission for observation, echo and possible MRI. Will plan if the patient does not have intracranial hemorrhage to give her aspirin and Plavix. Will monitor her blood pressure at this time. Differential includes TIA, CVA, peripheral neuropathy, complex migraine Lab Data Patient is mildly hyponatremic with a sodium of 134. Glucose is 116. Renal function is normal. Urinalysis is negative for UTI. 01/27/24 21:45 01/27/24 21:45 Radiology Impressions Chest X-Ray 01/27/24 21:12 IMPRESSION: No acute findings. Head CT 01/27/24 21:12 IMPRESSION: 1. No acute intracranial abnormality. 2. 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 ASSESSMENT: ASPECTS ([place] Stroke Program Early CT Score) is 10. Head/Neck CTA 01/27/24 21:12 IMPRESSION: No large vessel stenosis or occlusion. IMPRESSION: No stenosis or occlusion. REFERENCES: NASCET CRITERIA. The degree of stenosis in the cervical segment of the internal carotid artery is based on NASCET criteria. Normal is no stenosis. Mild is less than 50% stenosis. Moderate is 50-69% stenosis. Severe is 70% to 99% stenosis. Total occlusion is no detectable patent lumen. Laboratory Results WBC 7.37 10^3/uL (3.29-11.43) 01/27/24 21:45 RBC 4.22 10^6/uL (3.85-5.65) 01/27/24 21:45 Hgb 10.40 g/dL (11.27-16.99) L 01/27/24 21:45 Hct 33.6 % (36-47) L 01/27/24 21:45 MCV 79.6 fl (85-98) L 01/27/24 21:45 MCH 24.6 pg (27-33) L 01/27/24 21:45 MCHC 31.0 g/dL (30-55) 01/27/24 21:45 RDW 14.4 % (12.1-15.1) 01/27/24 21:45 Plt Count 259 10^3/cmm (157-399) 01/27/24 21:45 MPV 9.1 fL (7.4-10.4) 01/27/24 21:45 Neut % (Auto) 57.0 % 01/27/24 21:45 Lymph % (Auto) 30.9 % 01/27/24 21:45 Ada % (Auto) 9.0 % 01/27/24 21:45 Eos % (Auto) 2.3 % 01/27/24 21:45 Baso % (Auto) 0.5 % 01/27/24 21:45 Neut # (Auto) 4.20 10^3/uL (1.8-7.7) 01/27/24 21:45 Lymph # (Auto) 2.3 10^3/uL (0.8-4.8) 01/27/24 21:45 Ada # (Auto) 0.7 10^3/uL (0.2-0.9) 01/27/24 21:45 Eos # (Auto) 0.2 10^3/uL (0.0-0.8) 01/27/24 21:45 Baso # (Auto) 0.0 10^3/uL (0.0-0.1) 01/27/24 21:45 Nucleated RBC % (auto) 0 % 01/27/24 21:45 Nucleated RBCs # 0.0 /100WBC 01/27/24 21:45 PT 13.60 SECONDS (12.1-14.9) 01/27/24 21:45 INR 1.01 (0.8-1.2) 01/27/24 21:45 APTT 25.5 SECONDS (23.9-36.7) 01/27/24 21:45 Sodium 134 mmol/L (136-145) L 01/27/24 21:45 Potassium 3.9 mmol/L (3.5-5.1) 01/27/24 21:45 Chloride 102 mmol/L (98-107) 01/27/24 21:45 Carbon Dioxide 22 mmol/L (22-29) 01/27/24 21:45 Anion Gap 13.9 (5-19) 01/27/24 21:45 BUN 18 mg/dL (6-20) 01/27/24 21:45 Creatinine 0.8 mg/dL (0.5-0.9) 01/27/24 21:45 GFR Calculation 77.9 mL/min (90-130) L 01/27/24 21:45 Glucose 121 mg/dL (65-115) H 01/27/24 21:45 POC Glucose 116 mg/dL (70-110) H 01/27/24 21:43 Calculated Osmolality 281 mOsm/kg (285-295) L 01/27/24 21:45 Calcium 8.0 mg/dL (8.5-10.5) L 01/27/24 21:45 Total Bilirubin 0.2 mg/dL (0.15-1.2) 01/27/24 21:45 AST 14 U/L (0-32) 01/27/24 21:45 ALT 11 U/L (0-33) 01/27/24 21:45 Alkaline Phosphatase 49 U/L (35-105) 01/27/24 21:45 Total Protein 5.8 g/dL (6.6-8.7) L 01/27/24 21:45 Albumin 3.2 g/dL (3.5-5.2) L 01/27/24 21:45 Globulin 2.6 g/dL (1.3-4.6) 01/27/24 21:45 Ser , Semi-Qnt 1.00 mIU/mL 01/27/24 21:45 Urine Color Yellow (Yellow) 01/27/24 21:53 Urine Appearance Clear (CLEAR) 01/27/24 21:53 Urine pH 5.5 (5-7) 01/27/24 21:53 Ur Specific [place] 1.061 (1.005-1.030) H 01/27/24 21:53 Urine Protein Negative (Negative) 01/27/24 21:53 Urine Glucose (UA) Negative (Normal) 01/27/24 21:53 Urine Ketones Negative (Negative) 01/27/24 21:53 Urine Blood 1+ (Negative) A 01/27/24 21:53 Urine Nitrate Negative (Negative) 01/27/24 21:53 Urine Bilirubin Negative (Negative) 01/27/24 21:53 Urine Urobilinogen 1.0 mg/dL (Negative) 01/27/24 21:53 Ur Leukocyte Esterase Trace (Negative) A 01/27/24 21:53 Urine RBC 6-10 /hpf (0-2) 01/27/24 21:53 Urine WBC 6-10 /hpf (0-5) 01/27/24 21:53 Ur Squamous Epith Cells 6-10 /hpf (0-5) 01/27/24 21:53 Amorphous Sediment Not Reportable 01/27/24 21:53 Urine Bacteria Trace /hpf (NONE) 01/27/24 21:53 Hyaline Casts 0.40 /lpf 01/27/24 21:53 Urine Opiates Screen Negative ng/mL (Negative) 01/27/24 21:53 Ur Barbiturates Screen Negative ng/mL (Negative) 01/27/24 21:53 Ur Phencyclidine Scrn Negative ng/mL (Negative) 01/27/24 21:53 Ur Amphetamines Screen Negative ng/mL (Negative) 01/27/24 21:53 U Benzodiazepines Scrn Negative ng/mL (Negative) 01/27/24 21:53 Urine Cocaine Screen Negative ng/mL (Negative) 01/27/24 21:53 U Marijuana (THC) Screen Negative ng/mL (Negative) 01/27/24 21:53 All radiology interpretation(s) finalized by discharge ED provider radiology interpretation(s): Chest x-ray per my interpretation shows no infiltrate or effusion or acute finding EKG Data EKG 1: I personally reviewed and interpreted this EKG as follows: EKG interpretation date: 01/27/24 EKG interpretation time: 21:50 Interpretation: Normal sinus rhythm, no ST segment elevation or depression, T wave flattening in lead III, no acute ischemic changes per my interpretation. She does have left axis deviation Critical Care Time Critical Care Time: Critical Care Time: Yes Total Critical Care Time: 45 Attestation: Total critical care time involved evaluation of the patient, repeat evaluation, ordering interpretation of tests including EKG, CT imaging, chest x-ray, laboratory studies and administering medications as well as discussing with admitting physician Discharge Plan Discharge Patient Disposition: Admitted As Inpatient Clinical Impression: Transient ischemic attack, Hypertension, Obesity Condition: Stable Coding Level of Care Code ED Supervising Deputy for Scarlet Alvarez
[2024-01-27] MEDS: iohexol 350 mg/mL 500 mL Btl (per mL) IV (21:23)
--- NOTE | 2024-01-27 21:44 | ECG_ITS ---
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 Measurements Intervals [place] Rate: 78 P: 45 PA: 162 QRS: -21 QRSD: 99 T: 39 QT: 396 QTc: 453 Interpretive Statements SINUS RHYTHM BORDERLINE LEFT AXIS DEVIATION [QRS AXIS < -20] LOW QRS VOLTAGE IN PRECORDIAL LEADS [QRS DEFLECTION < 1.0 mV IN CHEST LEADS] PATTERN CONSISTENT WITH PULMONARY DISEASE Compared to ECG 09/24/2022 18:12:09 Myocardial infarct finding no longer present Electronically Signed On 01-30-2024 18:52:38 CDT by Marcelino Bernard M.D. [id number]
[2024-01-27 21:46] LABS: Glucose Point of Care 116 mg/dL (70-110)
[2024-01-27] MEDS: LORazepam 2 mg/mL INJ 1 mL 1 MG IVP (21:49)
[2024-01-27 21:53] LABS: Basophils % 0.5 %; Eosinophils # 0.2 10^3/uL (0.0-0.8); Eosinophils % 2.3 %; Hematocrit 33.6 % (36-47); Lymphocytes # 2.3 10^3/uL (0.8-4.8); Lymphocytes % 30.9 %; Mean Corpuscular Hemoglobin 24.6 pg (27-33); Mean Corpuscular Volume 79.6 fl (85-98); Mean Platelet Volume 9.1 fL (7.4-10.4); Monocytes # 0.7 10^3/uL (0.2-0.9); Nucleated Red Blood Cells % 0 %; Platelet Count 259 10^3/cmm (157-399); Red Blood Count 4.22 10^6/uL (3.85-5.65); Red Cell Distribution Width 14.4 % (12.1-15.1); White Blood Count 7.37 10^3/uL (3.29-11.43)
[2024-01-27 22:05] LABS: INR 1.01 (0.8-1.2); Partial Thromboplastin Time 25.5 SECONDS (23.9-36.7)
[2024-01-27 22:18] LABS: Bilirubin Urine Negative (Negative); Blood Urine 1+ (Negative); Glucose Urine UA Negative (Normal); Ketones Urine Negative (Negative); Leukocyte Esterase Urine Trace (Negative); Nitrate Urine Negative (Negative); Protein Urine Negative (Negative); Urine Appearance Clear (CLEAR); Urine Color Yellow (Yellow); pH Urine 5.5 (5-7)
[2024-01-27 22:20] LABS: Alanine Aminotransferase 11 U/L (0-33); Albumin Level 3.2 g/dL (3.5-5.2); Alkaline Phosphatase 49 U/L (35-105); Anion Gap 13.9 (5-19); Aspartate Amino Transferase 14 U/L (0-32); Blood Urea Nitrogen 18 mg/dL (6-20); Carbon Dioxide 22 mmol/L (22-29); Chloride 102 mmol/L (98-107); Globulin 2.6 g/dL (1.3-4.6); Glomerular Filtration Rate 77.9 mL/min (90-130); Glucose 121 mg/dL (65-115); Osmolality Calculated 281 mOsm/kg (285-295); Potassium 3.9 mmol/L (3.5-5.1); Sodium 134 mmol/L (136-145); Total Bilirubin 0.2 mg/dL (0.15-1.2); Total Protein 5.8 g/dL (6.6-8.7)
[2024-01-27 22:23] LABS: Add Urine Microscopic? YES; Bacteria Urine Trace /hpf
[2024-01-27 22:26] LABS: Amphetamines Screen Urine Negative (Negative); Barbiturates Screen Urine Negative (Negative); Benzodiazepines Screen Urine Negative (Negative); Cocaine Screen Urine Negative (Negative); Opiate Screen Urine Negative (Negative); PCP Screen Urine Negative (Negative); Specific Gravity, Urine 1.061 (1.005-1.030); THC Screen Urine Negative (Negative)
[2024-01-27 22:38] VITALS: BP 153/95; PULSE 84; O2SAT 97
[2024-01-27] MEDS: aspirin 81 mg Chew Tablet 324 MG PO (22:49)
[2024-01-27] MEDS: clopidogrel 300 mg Tablet PO (22:49)
[2024-01-27 23:13] VITALS: BP 153/95; PULSE 80; O2SAT 97
--- NOTE | 2024-01-27 23:47 | P.HP_ITS ---
Providers/Chief Complaint 2 Admitting Physician: Geovanni Paige Primary Care Provider: RD Anderson Chief Complaint: RIGHT FACIAL NUMBNESS History of Present Illness Pleasant 43-year-old lady with history of smoking, states has stopped smoking a week ago due to getting progressively more short of breath with exertion, became worried about developing early onset COPD, history of DM2, HTN, HLD, migraine headaches, fibroids and excess uterine bleeding on OCP, osteoarthritis on meloxicam, pregabalin, depression and suicidal ideation seeing psychiatrist, on amitriptyline, was just recently started on vilazodone about a week earlier. So far with some improvement in depression, no suicidal ideation. She would seek help in case of recurrence. Sleep apnea, on nightly CPAP. Morbid obesity, previously on Ozempic, for diabetes, however, was switched to Trulicity as her insurance would not cover the Ozempic any longer. She developed right sided facial and upper and lower extremity numbness, associated weakness, right-sided drooling and slurred speech about 20 minutes prior to arrival in ER. Symptoms had resolved. She had transient brief lower lip numbness after her CT scan, but currently is feeling tired but otherwise back to baseline. Her blood glucose was 155 earlier at home, here 116. CT of the head shows old lacunar infarct in the right cerebellar hemisphere. She is afebrile, without leukocytosis, sodium 134., Albumin 3.2. UA and UDS unremarkable. She was not found to be a candidate for tPA. Underwent CT angiogram head and neck which showed no large vessel stenosis or occlusion in the head or neck. Blood pressure 153/95 in ER. Received aspirin, Plavix, Ativan. Review of Systems 2 Const: Denies: fever(s), chills, body aches or malaise ENMT: Denies: throat pain Card: Denies: chest pain, edema, pre-syncope or dyspnea on exertion Resp: Denies: dyspnea, productive cough, change in phlegm color or hemoptysis GI: Denies: abdominal pain, nausea, vomiting, diarrhea, constipation, hematochezia or melena : Denies: flank pain, urinary frequency or hematuria Musc: Denies: back pain, joint swelling or joint redness Skin/Breast: Denies: rash or new lesions Neuro: Reports: numbness in extremities, weakness in extremities and Slurred speech present; Denies: headache(s) or dizziness Medications/Allergies Home Medications Medication Instructions Recorded Confirmed Last Taken Type omega-3 fatty acids 1,000 mg 1,000 mg PO DAILY 10/16/19 01/25/24 1 Day Ago History capsule ~04/29/20 blood-glucose meter (Blood Glucose #1 ea 12/26/19 01/25/24 Unknown Rx Monitoring kit) esomeprazole magnesium 20 mg 20 mg PO DAILY 10/06/20 01/25/24 Unknown History capsule,delayed release (Nexium 24HR) compress.stocking,knee,reg,lrg #2 ea 03/02/21 01/25/24 Unknown Rx clobetasol 0.05 % scalp solution 1 applic topical DAILY #50 mL 05/20/21 01/25/24 Unknown Rx Elidel 1 % topical cream See Rx Instructions .Route 07/23/21 01/25/24 Unknown Rx (pimecrolimus) .COMPLEX #100 grams blood sugar diagnostic (Blood #100 ea 10/14/21 01/25/24 Unknown Rx Glucose Test strips) lancets (Lancets,Thin) #100 ea 10/14/21 01/25/24 Unknown Rx albuterol sulfate 90 mcg/actuation 2 puff inhalation Q4H PRN 09/23/22 01/25/24 Unknown Rx aerosol inhaler (ProAir HFA) shortness of breath or wheezing #6.7 grams polyethylene glycol 3350 17 gram 17 g PO DAILY PRN constipation #14 09/24/22 01/25/24 Unknown Rx oral powder packet (Miralax) ea diclofenac sodium 1 % topical gel 4 g topical QID #100 grams 12/31/22 01/25/24 Unknown Rx (Voltaren Arthritis Pain) cpap supplies #1 ea 07/11/23 01/25/24 Unknown Rx levocetirizine 5 mg tablet See Rx Instructions .Route 08/18/23 01/25/24 Unknown Rx .COMPLEX #60 tabs fluconazole 100 mg tablet 100 mg PO DAILY #7 tabs 09/09/23 01/19/24 Unknown Rx (Diflucan) rosuvastatin 20 mg tablet See Rx Instructions .Route 09/13/23 01/25/24 Unknown Rx .COMPLEX #30 tabs azelastine 137 mcg (0.1 %) nasal 2 spray intranasal BID #30 mL 09/28/23 01/25/24 Unknown Rx spray pregabalin 150 mg capsule 150 mg PO BID 30 days #60 caps 09/28/23 01/25/24 Unknown Rx amitriptyline 50 mg tablet 50 mg PO .HS #30 tabs 10/18/23 01/25/24 Unknown Rx dulaglutide 0.75 mg/0.5 mL See Rx Instructions .Route 11/09/23 01/25/24 Unknown Rx subcutaneous pen injector .COMPLEX #2 mL (Trulicity) famotidine 20 mg tablet See Rx Instructions .Route 11/11/23 01/25/24 Unknown Rx .COMPLEX #60 tabs norgestimate 0.25 mg-ethinyl 1 tab PO DAILY #84 tabs 11/22/23 01/25/24 Unknown Rx estradiol 35 mcg tablet (Sprintec (28)) meloxicam 15 mg tablet See Rx Instructions .Route 12/19/23 01/25/24 Unknown Rx .COMPLEX #30 tabs montelukast 10 mg tablet See Rx Instructions .Route 12/19/23 01/25/24 Unknown Rx .COMPLEX #30 tabs triamcinolone acetonide 0.1 % 1 applic topical BID 14 days #80 12/28/23 01/25/24 Unknown Rx topical cream grams buspirone 10 mg tablet 20 mg (2 x 10 mg) PO BID #120 tabs 01/16/24 01/25/24 Unknown Rx escitalopram oxalate 20 mg tablet 20 mg PO DAILY #30 tabs 01/16/24 01/25/24 Unknown Rx (Lexapro) vilazodone 20 mg tablet (Viibryd) 20 mg PO DAILY #30 tabs 01/25/24 01/25/24 Unknown Rx Allergies Allergy/AdvReac Type Severity Reaction Status Date / Time methylprednisolone Allergy Severe Blood Verified 01/25/24 11:23 sugar jumped to 200 latex Allergy Intermediate rash/swelli Verified 01/25/24 11:23 ng topiramate [From Topamax] Allergy Unknown Unknown Verified 01/25/24 11:23 fluticasone [From Flonase] Allergy Unknown Verified 01/25/24 11:23 bupropion [From Wellbutrin] AdvReac Intermediate rash & Verified 01/25/24 11:23 swelling codeine AdvReac Intermediate N & V . Verified 01/25/24 11:23 Stomach upset metformin AdvReac Intermediate Upset Verified 01/25/24 11:23 stomach nitrofurantoin AdvReac Intermediate N & V. Verified 01/25/24 11:23 Stomach upset. 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 Gage Pain management contract signed Obstructive sleep apnea (adult) (pediatric) Generalized anxiety disorder Surgical History History of surgical removal of ganglion cyst right wrist Hx of tubal ligation 08/2013 Hx of cholecystectomy Family History Mother Thyroid disease Cataract Father Hypertension Diabetes Heart disease Hypercholesteremia Cancer prostate, skin Grandmother Breast cancer Maternal--dx age unknown Grandfather Stroke Maternal Denies family history of Colon cancer Ovarian cancer Uterine cancer Social History Smoking and tobacco/nicotine status: never used tobacco/nicotine Quit status (tobacco/nicotine): has tried quititng Number of times tried to quit tobacco: 4 Second hand smoke exposure: No Alcohol intake: former Year of sobriety/quit date alcohol: 2017 Substance/Drug Use: former Date of last use: Marijuana - 2020 Adopted: No Caregiver/support person: No Lives independently: Yes Household members: spouse and children Housing: Apartment Marital status: Number of children: 4 Number of grandchildren: 2 Highest education level completed: Some College, No Degree service: No Current occupational status: disabled Current occupational exposures/hazards: No Pets and animals: Yes Pets & animals: cat(s) Leisure activites: art, games and other Leisure activities details: watching tv Sexually active: Yes Do you think of yourself as: Straight/Heterosexual Current gender identity: Female Marcia/Congregational: None Special marcia needs: No Agree to transfusion: Yes Female Reproductive History: Para: 4 Spontaneous abortions: No Vitals/I&O/Wt Last Vital Signs Temp 97.7 F 01/27/24 20:59 Pulse 80 01/27/24 23:13 Resp 18 01/27/24 20:59 BP 153/95 01/27/24 23:13 Pulse Ox 97 01/27/24 23:13 O2 Del Method Room Air 01/27/24 22:38 Weight last 48 hrs Weight 163.747 kg Physical Exam 2 Narrative: Accompanied by her son Const: COMMON NORMALS: patient oriented x3 and alert GENERAL APPEARANCE: c ooperative NUTRITIONAL APPEARANCE: obese morbidly obese O RIENTATION/CONSCIOUSNESS: Yes awake HENMT: COMMON NORMALS: oropharynx normal Neck/C-Spine: COMMON NORMALS: no JVD Resp: COMMON NORMALS: normal respiratory effort and clear to auscultation bilaterally AUSCULTATION: clear to auscultation bilaterally Cardio: COMMON NORMALS: no JVD, regular rhythm, S1 normal heart sound present, S2 normal heart sound present and No murmurs present (Cardio) RHYTHM: regular rhythm HEART SOUNDS: S1 normal heart sound present and S2 normal heart sound present GI: COMMON NORMALS: Normal to inspection, nondistended, normoactive bowel sounds present, Soft to palpation and non-tender PALPATION: Yes Soft to palpation Extremity: COMMON NORMALS: no joint enlargement GENERAL: Yes edema (Trace) Neuro: COMMON NORMALS: patient oriented x3 and moves all extremities S ENSORIUM/ORIENTATION: Yes alert OTHER: She is awake and alert, keenly responsive, following directions without difficulty. No slurred speech or facial droop. No aphasia. No difficulty with horizontal tracking. Visual barnhart full to confrontation, without visual extinction. No difficulty with FNF. Sensory exam symmetrical to light touch. No upper or lower extremity drift, although the right leg starts drifting down after 5 seconds due to pain in the lower back which is chronic. Skin: COMMON NORMALS: no rashes or lesions noted GENERAL SKIN EXAM: no rashes or lesions noted Data 01/27/24 21:45 01/27/24 21:45 A&P Assessment and plan (1) Transient ischemic attack: Small prior lacunar CVA noted in the cerebellum on CT head, additional TIA with symptoms of right side numbness, weakness, as well as facial droop and dysarthria. Symptoms resolved. Reviewed vitals, CBC, INR, CMP, UA, UDS, EKG, on my interpretation sinus rhythm without sign of atrial flutter or fibrillation, pending official interpretation, chest x-ray, CT head, head and neck CTA. No large vessel occlusion. Not a candidate for tPA. Was started on aspirin, Plavix, discussed with her, continue aspirin definitely, Plavix for 21 days at discharge. Monitor for risk of bleeding with DAPT, repeat CBC. Will need to continue high intensity statin, atorvastatin here. Monitor blood pressures with poorly controlled hypertension, blood pressure as high as 181/91. Add lisinopril. Avoid any NSAIDs. Cardiac diet. Check A1c, optimize diabetes control. Monitor on telemetry, assess for atrial fibrillation or flutter. Assess bubble study echocardiogram. With noted prior lacunar cerebellar CVA assess brain MRI. In case of possible embolic etiology consider further workup including cardiac monitoring at discharge. Please discontinue meloxicam and avoid any NSAIDs. Discontinue OCP, avoid combined contraceptive with TIA, history of migraine. Taper off and discontinue amitriptyline due to risk of stroke. Consider psychiatry consultation tomorrow given active depression and recent suicidal ideation, need for medication changes, recently started on vilazodone. Continue CPAP for LION. Lifestyle modification, diet, exercise, would benefit from weight loss. Follow- up with primary provider regarding weight loss options. Provide stroke education. Dietary consultation. PT, OT, ST evaluations. Case management consult. Please arrange follow-up with neurology within 1 week. (2) Lacunar stroke: Prior lacunar stroke noted in the cerebellum incidentally on CT. Additional workup and will need continued optimization of risk factors as above. (3) Depression with suicidal ideation: Depression and suicidal ideation seeing psychiatrist, on amitriptyline, was just recently started on vilazodone about a week earlier. So far with some improvement in depression, no active suicidal ideation. She would seek help in case of recurrence. Has been depressed recently with a lot of stress in her life, as well as notes that she is also a stress eater. Visited with her regarding consideration of possibly having psychiatry see her here, possibly with stay with psychiatry after medical issues are addressed. With risk of CVA with amitriptyline Consider consultation in the morning for assessment of depression as well as help with adjustment of antidepressants given will need to taper off of amitriptyline with risk of stroke. Avoid discontinuing cold turkey due to risk of withdrawal. Continue vilazodone. (4) Dyspnea on exertion: Reports has been having exertional dyspnea which even prompted her to stop smoking last week. Has been also having some lower extremity edema. At rest may saturation on room air. Chest x-ray reviewed, unremarkable. Afebrile, without leukocytosis. No cough or sputum production. Obtain COVID/flu/RSV PCR. Will obtain a D-dimer. Echocardiogram requested as above, assess for possible myocardial dysfunction, valvular heart disease. Lower extremity duplex Encourage smoking cessation. In case of persistent symptoms may benefit from PFT. Plan Smoking, states has stopped smoking a week ago due to getting progressively more short of breath with exertion, became worried about developing early onset COPD. Discussed with her smoking cessation for 4 minutes, she understands and intends to quit. Has not smoked in a week. Declines nicotine replacement. Continue to encourage cessation. DM2, monitor glucose Accu-Chek. SSI. Consistent carb diet. HTN, cardiac diet. Avoid any NSAIDs. HLD, continue statin Migraine headaches, avoid combined oral contraceptive pills. Fibroids and excess uterine bleeding, please discontinue OCP. Osteoarthritis on meloxicam, pregabalin. Please discontinue meloxicam at discharge, avoid any NSAIDs. Sleep apnea, on nightly CPAP. Morbid obesity, previously on Ozempic, for diabetes, however, was switched to Trulicity as her insurance would not cover the Ozempic any longer. Please reinforce lifestyle modification, healthy diet, walking or other moderate exercise, she has a treadmill, has a small exercise bike. Follow-up with PCP regarding weight loss options ? perhaps application can be resubmitted to insurance for Ozempic or other similar medication. Attestations 2 Medical Necessity Statement*: Admission of over 2 midnights anticipated for assessment management of TIA, prior cerebellar CVA, multiple cardiovascular risk factors as above, including need for medication adjustment, antidepressant changes with underlying depression and recent suicidal ideation. Diagnoses Transient ischemic attack G45.9 Lacunar stroke I63.81 Depression with suicidal ideation F32.A; R45.851 Dyspnea on exertion R06.09
[2024-01-28] VITALS (12 sets, daily range): BP systolic 112–181; BP diastolic 72–91; PULSE 66–91; RESP 14–17; TEMP 36.4–36.9; O2SAT 95–97; BMI 54.8
--- NOTE | 2024-01-28 00:06 | MRR_ITS ---
PROCEDURE INFORMATION: Exam: MR Head Without Contrast Exam date and time: 01/28/2024 9:17 AM Age: 43 years old Clinical indication: Weakness, extremity; Left; Additional info: TIA, prior CVA TECHNIQUE: Imaging protocol: Magnetic resonance imaging of the head without contrast. COMPARISON: CT angio headneck* [id number] 01/27/2024 9:21 PM FINDINGS: Brain: Old lacunar infarct in the right cerebellum. No acute infarct. Focal gliosis in the posterior left frontal lobe cortex, from prior insult. Nonspecific focus of high FLAIR signal in the left centrum semiovale. No acute bleed. No intracranial mass. No acute infarct. Cerebral ventricles: Normal. No ventriculomegaly. Bones: Unremarkable. Paranasal sinuses: Mild mucosal disease of the left maxillary sinus. Mastoid air cells: Normal as visualized. No mastoid effusion. Orbital cavities: Unremarkable. Soft tissues: Unremarkable. MR/MR head wo con* [id number] IMPRESSION: No acute infarct, intracranial bleed or intracranial mass.
--- NOTE | 2024-01-28 00:06 | USCV_ITS ---
Dora Neville Age: 43 Gender: F : 1980 Exam Date: 01/28/2024 10:00 Ordering Phys: Geovanni Paige MD Technologist: Miguel Gage [place] [facility] [place]: TIA BP: 136 / 81 HR: 70 Rhythm: Sinus Technical Quality: Adequate MEASUREMENTS (Male / Female) Normal Values 2D ECHO LV Diastolic Diameter PLAX 4.9 cm 4.2 - 5.9 / 3.9 - 5.3 cm IVS Diastolic Thickness 1.4 cm 0.6 - 1.0 / 0.6 - 0.9 cm IVS Systolic Thickness 1.8 cm LVPW Diastolic Thickness 1.9 cm 0.6 - 1.0 / 0.6 - 0.9 cm LVPW Systolic Thickness 2.0 cm LVOT Diameter 2.3 cm LV Ejection Fraction 2D Teich 64.6 % LV Ejection Fraction MOD 4C 63.7 % LV Ejection Fraction MOD 2C 76.5 % LV Ejection Fraction 2C AL 79.8 % LA Diameter 4.3 cm RA Systolic Volume 4C AL 36.5 ml RA Systolic Volume 4C MOD 37.6 ml LA Sys Volume AL 53.1 cm cubed LA Sys Volume Index AL 18.0 cm cubed/m squared Aorta at Sinotubular Diameter 2.8 cm IVC Diameter 2.4 cm M-MODE LA Ao Ratio MM 1.2 AV Cusp Separation MM 2.0 cm DOPPLER AV Peak Velocity 135.0 cm/s LVOT Peak Velocity 101.0 cm/s AV Area Cont Eq vti 3.6 cm squared AV Area Cont Eq pk 3.1 cm squared MV Peak Velocity 103.0 cm/s MV Area PHT 4.2 cm squared Mitral E to A Ratio 1.1 PV Peak Velocity 116.3 cm/s RV Ejection Time 0.3 s FINDINGS Left Ventricle Left ventricle is normal in size. LV systolic function is normal with EF of 55-60%. No regional wall motion abnormalities are seen. Right Ventricle Normal in size and function Right Atrium Normal in size Left Atrium Normal in size Mitral Valve Structurally normal mitral valve. Trace mitral regurgitation Aortic Valve Structurally normal aortic valve. No significant stenosis or regurgitation. Tricuspid Valve Insufficient TR jet to calculate RVSP Pulmonic Valve Trace pulmonic regurgitation. Pericardium Normal Aorta Ascending aorta is dilated with diameter of 3.53cm IVC Dilated. CONCLUSIONS LV systolic function is normal with EF of 55-60% Bubble study is of limited quality. Grossly bubble crossover is noted indicating possible intracardiac shunting. Trace mitral regurgitation Trace pulmonic regurgitation Ascending aorta is dilated with diameter of 3.53cm IVC is dilated Marcelino Bernard MD (Electronically Signed) Final Date: 28 January 2024 11:52 S
--- NOTE | 2024-01-28 00:32 | USR_ITS ---
PROCEDURE INFORMATION: Exam: US Duplex Lower Extremity Veins, Bilateral Exam date and time: 01/28/2024 7:44 AM Age: 43 years old Clinical indication: Screening exam; Assess for dvt TECHNIQUE: Imaging protocol: Real-time duplex ultrasound of the bilateral extremities with 2-D ruby scale, color Doppler flow and spectral waveform analysis including responses to compression and other maneuvers (when performed) with image documentation. Complete exam focused on the lower extremity veins. COMPARISON: US transvaginal [id number] 11/30/2023 12:31 PM FINDINGS: Right deep veins: Unremarkable. The common femoral, femoral, proximal profunda femoral and popliteal veins are patent without thrombus. Normal Doppler waveforms. Normal compressibility and/or augmentation response. Left deep veins: Unremarkable. The common femoral, femoral, proximal profunda femoral and popliteal veins are patent without thrombus. Normal Doppler waveforms. Normal compressibility and/or augmentation response. Superficial veins: Greater saphenous veins at the saphenofemoral junctions are patent bilaterally without thrombus. Soft tissues: Unremarkable. US/CV venous duplex [facility] [id number] IMPRESSION: No evidence of deep vein thrombosis.
[2024-01-28 00:49] LABS: D Dimer 1.91 ug/mLFEU (0-0.59)
[2024-01-28] MEDS: enoxaparin 40 mg/0.4 mL Syringe SUBCUT (00:55)
[2024-01-28] MEDS: atorvastatin 40 mg Tablet PO ×2 (00:56→21:51)
[2024-01-28] MEDS: lisinopril 5 mg Tablet PO ×2 (00:56→09:49)
[2024-01-28 01:00] LABS: Covid PCR NEGATIVE (Negative); Influenza A NEGATIVE (Negative); Influenza B NEGATIVE (Negative); Respiratory Syncytial Virus Ce NEGATIVE (Negative)
[2024-01-28] MEDS: acetaminophen 325 mg Tablet 650 MG PO (03:59)
[2024-01-28 05:35] LABS: Chol HDL Ratio 3.19 mg/dL (0.0-4.40); Cholesterol 134 mg/dL (0-200); HDL Cholesterol 42 mg/dL (60-100); LDL Cholesterol Calculated 53 mg/dL (50-129); LDL HDL Ratio 1.26 RATIO (0.00-3.22); Triglycerides 196 mg/dL (0-150)
[2024-01-28 05:36] LABS: Estmated Average Glucose 137; Hemoglobin A1C 6.4 % (4.0-6.0)
[2024-01-28 06:39] LABS: Glucose Point of Care 151 mg/dL (70-110)
[2024-01-28] MEDS: BuSPIRONE 10 mg Tablet 20 MG PO ×2 (09:49→17:36)
[2024-01-28] MEDS: aspirin 81 mg EC Tablet 162 MG PO (09:50)
[2024-01-28] MEDS: pregabalin 150 mg Capsule PO ×2 (09:50→17:37)
[2024-01-28] MEDS: montelukast sodium 10 mg Tablet PO (09:50)
[2024-01-28] MEDS: escitalopram 10 mg Tablet 20 MG PO (09:50)
[2024-01-28] MEDS: pantoprazole DR 40 mg Tablet PO (09:50)
[2024-01-28] MEDS: clopidogrel 75 mg Tablet PO (09:51)
[2024-01-28] MEDS: TRAMadol 50 mg Tablet PO (10:22)
[2024-01-28 11:48] LABS: Glucose Point of Care 122 mg/dL (70-110)
[2024-01-28] MEDS: propranolol 40 mg Tablet PO ×2 (12:03→21:51)
--- NOTE | 2024-01-28 13:19 | P.PN_ITS ---
Subjective 2 Subjective: Patient was seen this morning, she does report a headache, she normally uses Elavil for her migraine headaches, but is worried about using it with her history of recent history of TIA, to the appropriate status report a history of hypertension, she is never used propranolol before, does not report any allergies to it, denies any headache, no blurry vision, we discussed her depression and anxiety, she tells me that it is well-controlled she currently denies any active suicidal ideation, denies any active homicidal ideation, denies any recent significant worsening of her depression anxiety, is agreeable to follow-up with her primary care provider as outpatient Vitals/I&O/Wt Last Vital Signs Temp 97.6 F 01/28/24 12:00 Pulse 66 01/28/24 12:00 Resp 14 01/28/24 12:00 BP 112/72 01/28/24 12:00 Pulse Ox 96 01/28/24 12:00 O2 Del Method Room Air 01/28/24 12:00 FiO2 21 01/28/24 03:55 Weight last 48 hrs Weight 169.916 kg Weight 163.747 kg Weight 163.747 kg Physical Exam 2 Const: COMMON NORMALS: no acute distress and patient oriented x3 Resp: COMMON NORMALS: normal respiratory effort, No retractions, No use of accessory muscles and clear to auscultation bilaterally AUSCULTATION: clear to auscultation bilaterally Cardio: COMMON NORMALS: regular rate, regular rhythm, S1 normal heart sound present and S2 normal heart sound present RATE: regular rate RHYTHM: r egular rhythm HEART SOUNDS: S1 normal heart sound present and S2 normal heart sound present GI: COMMON NORMALS: Normal to inspection, nondistended, normoactive bowel sounds present and non-tender Extremity: COMMON NORMALS: no pedal edema Neuro: COMMON NORMALS: patient oriented x3, CN's II-XII intact bilaterally, moves all extremities and no focal motor deficits Psych: COMMON NORMALS: mental status grossly normal Data 01/27/24 21:45 01/27/24 21:45 A&P Assessment and plan (1) Transient ischemic attack: MRI brain, no acute findings CT small prior lacunar CVA noted in the cerebellum CTA head and neck no acute findings Cardiac echo, does grossly bubble crossover indicating possible intracardiac shunting Venous ultrasound no DVT Continue aspirin, statin, Lasix, follow-up with neurology as outpatient Monitor blood pressures with poorly controlled hypertension, blood pressure as high as 181/91. Add lisinopril. Avoid any NSAIDs. Cardiac diet. Check A1c, optimize diabetes control. Monitor on telemetry, assess for atrial fibrillation or flutter. Will order event monitor on discharge Please discontinue meloxicam and avoid any NSAIDs. Discontinue OCP, avoid combined contraceptive with TIA, history of migraine. Taper off and discontinue amitriptyline due to risk of stroke. Continue CPAP for LION. Lifestyle modification, diet, exercise, would benefit from weight loss. Follow- up with primary provider regarding weight loss options. Provide stroke education. Dietary consultation. PT, OT, ST evaluations. Case management consult. Please arrange follow-up with neurology within 1 week. (2) Lacunar stroke: Prior lacunar stroke noted in the cerebellum incidentally on CT. Additional workup and will need continued optimization of risk factors as above. (3) Depression with suicidal ideation: She denies any active suicidal ideation, no active homicidal ideation, reports her depression is under control (4) Dyspnea on exertion: Monitor Plan Smoking, states has stopped smoking a week ago due to getting progressively more short of breath with exertion History of migraines, switch to propranolol DM2, monitor glucose Accu-Chek. SSI. Consistent carb diet. HTN, cardiac diet. Avoid any NSAIDs. HLD, continue statin Migraine headaches, avoid combined oral contraceptive pills. Fibroids and excess uterine bleeding, please discontinue OCP. Osteoarthritis on meloxicam, pregabalin. Please discontinue meloxicam at discharge, avoid any NSAIDs. Sleep apnea, on nightly CPAP. Morbid obesity, previously on Ozempic, for diabetes, however, was switched to Trulicity as her insurance would not cover the Ozempic any longer Attestations 2 Medical Necessity Statement*: Patient requires hospitalization for TIA Diagnoses Transient ischemic attack G45.9 Lacunar stroke I63.81 Depression with suicidal ideation F32.A; R45.851 Dyspnea on exertion R06.09
[2024-01-28 17:00] LABS: Glucose Point of Care 104 mg/dL (70-110)
[2024-01-28 21:04] LABS: Glucose Point of Care 144 mg/dL (70-110)
[2024-01-28] MEDS: insulin lispro 100 unit/1 mL SUBCUT (21:51)
[2024-01-28] MEDS: amitriptyline 25 mg Tablet PO (21:51)
[2024-01-29] MEDS: enoxaparin 40 mg/0.4 mL Syringe SUBCUT (01:00)
[2024-01-29 02:58] VITALS: BP 123/81; PULSE 67; RESP 15; TEMP 36.8; O2SAT 95
[2024-01-29 05:28] LABS: Basophils % 0.5 %; Eosinophils # 0.2 10^3/uL (0.0-0.8); Eosinophils % 2.8 %; Hematocrit 35.2 % (36-47); Mean Corpuscular HGB Conc 30.4 g/dL (30-55); Mean Corpuscular Hemoglobin 24.4 pg (27-33); Mean Corpuscular Volume 80.2 fl (85-98); Mean Platelet Volume 8.8 fL (7.4-10.4); Monocytes # 0.6 10^3/uL (0.2-0.9); Monocytes % 7.3 %; Neutrophils # 3.99 10^3/uL (1.8-7.7); Nucleated Red Blood Cells % 0 %; Platelet Count 262 10^3/cmm (157-399); Red Blood Count 4.39 10^6/uL (3.85-5.65); Red Cell Distribution Width 14.6 % (12.1-15.1); White Blood Count 7.82 10^3/uL (3.29-11.43)
[2024-01-29 05:45] LABS: Alanine Aminotransferase 10 U/L (0-33); Albumin Level 3.3 g/dL (3.5-5.2); Alkaline Phosphatase 46 U/L (35-105); Anion Gap 10.2 (5-19); Aspartate Amino Transferase 12 U/L (0-32); Blood Urea Nitrogen 16 mg/dL (6-20); Calcium 8.8 mg/dL (8.5-10.5); Carbon Dioxide 25 mmol/L (22-29); Chloride 105 mmol/L (98-107); Creatinine Clr Calc Pharmacy 119.2262; Globulin 2.3 g/dL (1.3-4.6); Glomerular Filtration Rate 60.2 mL/min (90-130); Glucose 114 mg/dL (65-115); Magnesium 2.1 mg/dL (1.7-2.3); Osmolality Calculated 284 mOsm/kg (285-295); Potassium 4.2 mmol/L (3.5-5.1); Sodium 136 mmol/L (136-145); Total Bilirubin 0.3 mg/dL (0.15-1.2); Total Protein 5.6 g/dL (6.6-8.7)
[2024-01-29 05:48] LABS: Chol HDL Ratio 2.95 mg/dL (0.0-4.40); Cholesterol 121 mg/dL (0-200); HDL Cholesterol 41 mg/dL (60-100); LDL Cholesterol Calculated 42 mg/dL (50-129); LDL HDL Ratio 1.02 RATIO (0.00-3.22); Triglycerides 189 mg/dL (0-150)
[2024-01-29 06:38] LABS: Glucose Point of Care 113 mg/dL (70-110)
[2024-01-29 08:01] VITALS: BP 122/79; PULSE 62; RESP 18; TEMP 36.6; O2SAT 96
[2024-01-29 09:00] VITALS: BP 105/67; PULSE 58; RESP 18; TEMP 36.5
[2024-01-29] MEDS: pantoprazole DR 40 mg Tablet PO (09:14)
[2024-01-29] MEDS: aspirin 81 mg EC Tablet 162 MG PO (09:14)
[2024-01-29] MEDS: escitalopram 10 mg Tablet 20 MG PO (09:14)
[2024-01-29] MEDS: pregabalin 150 mg Capsule PO (09:15)
[2024-01-29] MEDS: BuSPIRONE 10 mg Tablet 20 MG PO (09:15)
[2024-01-29] MEDS: montelukast sodium 10 mg Tablet PO (09:15)
[2024-01-29] MEDS: propranolol 40 mg Tablet PO (09:16)
[2024-01-29] MEDS: lisinopril 5 mg Tablet PO (09:16)
[2024-01-29] MEDS: clopidogrel 75 mg Tablet PO (09:16)
[2024-01-29] MEDS: ketorolac 30 mg/mL INJ IVP (11:11)
[2024-01-29] MEDS: diphenhydrAMINE 50 mg/mL SDV 1mL 12.5 MG IVP (11:12)
[2024-01-29] MEDS: metoclopramide 5 mg/mL SDV 2 mL IVP (11:13)
[2024-01-29 11:17] LABS: Glucose Point of Care 100 mg/dL (70-110)
[2024-01-29 11:43] VITALS: BP 105/67; PULSE 58; RESP 18; TEMP 36.5; O2SAT 93
--- NOTE | 2024-01-29 12:01 | PM.DCS ---
Discharge Providers Date of Admission: 01/27/24 22:49 Date of Discharge: January 29, 2024 Attending Provider at Admission: Geovanni Paige Attending Provider at Discharge: Kyle Rivas MD Primary Care Provider: RD Anderson Diagnoses at Discharge Discharge Diagnosis (1) Transient ischemic attack: Status: Acute (2) Lacunar stroke: Status: Acute (3) Depression with suicidal ideation: Status: Acute (4) Dyspnea on exertion: Status: Acute Reason for Visit Reason for Visit: RIGHT FACIAL NUMBNESS Hospital Course Hospital Course This is a 43-year-old female with a past medical history of type 2 diabetes mellitus, hypertension, hyperlipidemia migraine headaches, osteoarthritis on meloxicam, depression, history of suicidal ideation, history of smoking, COPD, who presents [facility] due to right sided facial and upper and lower extremity numbness, associated with right-sided drooling, slurred speech lasting 20 minutes, on admission symptoms had resolved, patient was back to baseline, her CT of her head showed an old lacunar infarct in the right cerebellar hemisphere, not a candidate for tPA, underwent CT angiogram of the head and neck which showed no large vessel stenosis or occlusion, MRI of the brain was within normal limits, she was monitored as inpatient remained asymptomatic, managed on aspirin, statin, Plavix, blood pressure control overall patient clinically remained asymptomatic. She will be discharged with aspirin, statin, 3 weeks of Plavix with a close follow-up with primary care and neurology as outpatient. Patient was advised if she were to have any recurrent strokelike symptoms to be immediately call 911. Patient was advised to avoid all NSAIDs, her meloxicam has been discontinued due to increased risk of strokes. She is on a combination oral contraceptive pill, advised for her to discontinue it for now due to increased risk of hypercoagulable events, and as she has migraines relatively contraindicated. She should discuss with her primary care provider about switching to a different form of contraception such as progesterone only oral contraceptive. In the meantime she should use in another form of contraception to decrease her risk of . She voiced understanding, all questions answered, she should also follow-up with her primary care provider for monitoring her blood pressure. Patient's cardiac echocardiogram showed LV systolic function is normal with EF of 55-60% Bubble study is of limited quality. Grossly bubble crossover is noted indicating possible intracardiac shunting. Trace mitral regurgitation Trace pulmonic regurgitation Ascending aorta is dilated with diameter of 3.53cm IVC is dilated -Spoke to neurology about the case, recommended medical management, outpatient follow-up -I had a detailed discussion with her about the possible intracardiac shunting, and her TIA as above. She is at increased risk of future TIAs, her venous ultrasound was negative for DVT. Nonetheless we will have her follow-up with neurology as outpatient within the next 2 weeks, consideration of anticoagulant therapy. I have also referred her to cardiology, and possible referral to CT surgery for possible surgical intervention. Patient was advised if she were to have any recurrent strokelike symptoms to immediately call 911 -In terms of her depression and anxiety, history of suicidal ideation, currently she denies any suicidal ideation, no homicidal ideation, no suicide attempt, but we are taking her off Elavil. She has been started on a new depression medication by her primary care provider, agreeable to follow-up with primary care. Also advised for her to follow-up with [facility] she can just walk-in with their offices. If she does develop any suicidal ideation or homicidal ideation she should immediately should call 911. Physical Exam Const: COMMON NORMALS: no acute distress and patient oriented x3 Resp: COMMON NORMALS: normal respiratory effort, No retractions, No use of accessory muscles and clear to auscultation bilaterally AUSCULTATION: clear to auscultation bilaterally Cardio: COMMON NORMALS: regular rate, regular rhythm, S1 normal heart sound present and S2 normal heart sound present RATE: regular rate RHYTHM: regular rhythm HEART SOUNDS: S1 normal heart sound present and S2 normal heart sound present GI: COMMON NORMALS: Normal to inspection, nondistended, normoactive bowel sounds present and non-tender Extremity: COMMON NORMALS: no calf tenderness and no pedal edema Neuro: COMMON NORMALS: patient oriented x3, CN's II-XII intact bilaterally, moves all extremities, no focal motor deficits and no sensory deficits noted Psych: COMMON NORMALS: mental status grossly normal Discharge Data Studies Completed and Pending Completed Studies During Hospitalization Category Date Time Status CT angio headneck* [id number] Stat Cat Scan 01/27/24 21:[address] head thrombolytic [id number] Stat Cat Scan 01/27/24 21:12 Completed XR chest 1V portable [id number] Stat Exams 01/27/24 21:12 Completed MR head wo con* [id number] Routine MRI 01/28/24 00:06 [place] [id number] Routine Ultrasound 01/28/24 00:32 Completed CV. echo w/w bubble cont [id number] Routine Ultrasound 01/28/24 00:06 Completed Pending at discharge Category Date Time Status Complete Blood Count w/Auto AM LABS Lab 01/30/24 04:00 Ordered Complete Blood Count w/Auto AM LABS Lab 01/31/24 04:00 Ordered Comprehensive Metabolic Panel AM LABS Lab 01/30/24 04:00 Ordered Comprehensive Metabolic Panel AM LABS Lab 01/31/24 04:00 Ordered Radiology Impressions Chest X-Ray 01/27/24 21:12 IMPRESSION: No acute findings. Head CT 01/27/24 21:12 IMPRESSION: 1. No acute intracranial abnormality. 2. 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 ASSESSMENT: ASPECTS (Lily Stroke Program Early CT Score) is 10. Head/Neck CTA 01/27/24 21:12 IMPRESSION: No large vessel stenosis or occlusion. IMPRESSION: No stenosis or occlusion. REFERENCES: NASCET CRITERIA. The degree of stenosis in the cervical segment of the internal carotid artery is based on NASCET criteria. Normal is no stenosis. Mild is less than 50% stenosis. Moderate is 50-69% stenosis. Severe is 70% to 99% stenosis. Total occlusion is no detectable patent lumen. Head MRI 01/28/24 00:06 IMPRESSION: No acute infarct, intracranial bleed or intracranial mass. Venous Duplex 01/28/24 00:32 IMPRESSION: No evidence of deep vein thrombosis. Laboratory Results WBC 7.82 10^3/uL (3.29-11.43) 01/29/24 04:55 RBC 4.39 10^6/uL (3.85-5.65) 01/29/24 04:55 Hgb 10.70 g/dL (11.27-16.99) L 01/29/24 04:55 Hct 35.2 % (36-47) L 01/29/24 04:55 MCV 80.2 fl (85-98) L 01/29/24 04:55 MCH 24.4 pg (27-33) L 01/29/24 04:55 MCHC 30.4 g/dL (30-55) 01/29/24 04:55 RDW 14.6 % (12.1-15.1) 01/29/24 04:55 Plt Count 262 10^3/cmm (157-399) 01/29/24 04:55 MPV 8.8 fL (7.4-10.4) 01/29/24 04:55 Neut % (Auto) 51.0 % 01/29/24 04:55 Lymph % (Auto) 38.0 % 01/29/24 04:55 Wilkin % (Auto) 7.3 % 01/29/24 04:55 Eos % (Auto) 2.8 % 01/29/24 04:55 Baso % (Auto) 0.5 % 01/29/24 04:55 Neut # (Auto) 3.99 10^3/uL (1.8-7.7) 01/29/24 04:55 Lymph # (Auto) 3.0 10^3/uL (0.8-4.8) 01/29/24 04:55 Wilkin # (Auto) 0.6 10^3/uL (0.2-0.9) 01/29/24 04:55 Eos # (Auto) 0.2 10^3/uL (0.0-0.8) 01/29/24 04:55 Baso # (Auto) 0.0 10^3/uL (0.0-0.1) 01/29/24 04:55 Nucleated RBC % (auto) 0 % 01/29/24 04:55 Nucleated RBCs # 0.0 /100WBC 01/29/24 04:55 PT 13.60 SECONDS (12.1-14.9) 01/27/24 21:45 INR 1.01 (0.8-1.2) 01/27/24 21:45 APTT 25.5 SECONDS (23.9-36.7) 01/27/24 21:45 D-Dimer 1.91 ug/mLFEU (0-0.59) H 01/27/24 21:45 Sodium 136 mmol/L (136-145) 01/29/24 04:55 Potassium 4.2 mmol/L (3.5-5.1) 01/29/24 04:55 Chloride 105 mmol/L (98-107) 01/29/24 04:55 Carbon Dioxide 25 mmol/L (22-29) 01/29/24 04:55 Anion Gap 10.2 (5-19) 01/29/24 04:55 BUN 16 mg/dL (6-20) 01/29/24 04:55 Creatinine 1.0 mg/dL (0.5-0.9) H 01/29/24 04:55 GFR Calculation 60.2 mL/min (90-130) L 01/29/24 04:55 Glucose 114 mg/dL (65-115) 01/29/24 04:55 POC Glucose 100 mg/dL (70-110) 01/29/24 11:14 Estimat Average Glucose Cancelled 01/29/24 04:55 Hemoglobin A1c Cancelled 01/29/24 04:55 Calculated Osmolality 284 mOsm/kg (285-295) L 01/29/24 04:55 Calcium 8.8 mg/dL (8.5-10.5) 01/29/24 04:55 Magnesium 2.1 mg/dL (1.7-2.3) 01/29/24 04:55 Total Bilirubin 0.3 mg/dL (0.15-1.2) 01/29/24 04:55 AST 12 U/L (0-32) 01/29/24 04:55 ALT 10 U/L (0-33) 01/29/24 04:55 Alkaline Phosphatase 46 U/L (35-105) 01/29/24 04:55 Total Protein 5.6 g/dL (6.6-8.7) L 01/29/24 04:55 Albumin 3.3 g/dL (3.5-5.2) L 01/29/24 04:55 Globulin 2.3 g/dL (1.3-4.6) 01/29/24 04:55 Triglycerides 189 mg/dL (0-150) H 01/29/24 04:55 Cholesterol 121 mg/dL (0-200) 01/29/24 04:55 LDL Cholesterol, Calc 42 mg/dL (50-129) L 01/29/24 04:55 HDL Cholesterol 41 mg/dL (60-100) L 01/29/24 04:55 LDL/HDL Ratio 1.02 RATIO (0.00-3.22) 01/29/24 04:55 Cholesterol/HDL Ratio 2.95 mg/dL (0.0-4.40) 01/29/24 04:55 Ser , Semi-Qnt 1.00 mIU/mL 01/27/24 21:45 Urine Color Yellow (Yellow) 01/27/24 21:53 Urine Appearance Clear (CLEAR) 01/27/24 21:53 Urine pH 5.5 (5-7) 01/27/24 21:53 Ur Specific [place] 1.061 (1.005-1.030) H 01/27/24 21:53 Urine Protein Negative (Negative) 01/27/24 21:53 Urine Glucose (UA) Negative (Normal) 01/27/24 21:53 Urine Ketones Negative (Negative) 01/27/24 21:53 Urine Blood 1+ (Negative) A 01/27/24 21:53 Urine Nitrate Negative (Negative) 01/27/24 21:53 Urine Bilirubin Negative (Negative) 01/27/24 21:53 Urine Urobilinogen 1.0 mg/dL (Negative) 01/27/24 21:53 Ur Leukocyte Esterase Trace (Negative) A 01/27/24 21:53 Urine RBC 6-10 /hpf (0-2) 01/27/24 21:53 Urine WBC 6-10 /hpf (0-5) 01/27/24 21:53 Ur Squamous Epith Cells 6-10 /hpf (0-5) 01/27/24 21:53 Amorphous Sediment Not Reportable 01/27/24 21:53 Urine Bacteria Trace /hpf (NONE) 01/27/24 21:53 Hyaline Casts 0.40 /lpf 01/27/24 21:53 Urine Opiates Screen Negative ng/mL (Negative) 01/27/24 21:53 Ur Barbiturates Screen Negative ng/mL (Negative) 01/27/24 21:53 Ur Phencyclidine Scrn Negative ng/mL (Negative) 01/27/24 21:53 Ur Amphetamines Screen Negative ng/mL (Negative) 01/27/24 21:53 U Benzodiazepines Scrn Negative ng/mL (Negative) 01/27/24 21:53 Urine Cocaine Screen Negative ng/mL (Negative) 01/27/24 21:53 U Marijuana (THC) Screen Negative ng/mL (Negative) 01/27/24 21:53 Coronavirus (PCR) Negative (Negative) 01/28/24 00:15 Influenza A (PCR) Negative (Negative) 01/28/24 00:15 Influenza Type B (PCR) Negative (Negative) 01/28/24 00:15 RSV (PCR) Negative (Negative) 01/28/24 00:15 Vitals Last Vital Signs Temp 97.7 F 01/29/24 11:43 Pulse 58 L 01/29/24 11:43 Resp 18 01/29/24 11:43 BP 105/67 01/29/24 11:43 Pulse Ox 93 01/29/24 11:43 O2 Del Method Room Air 01/29/24 11:43 FiO2 21 01/28/24 22:11 Discharge Plan Discharge Patient Disposition: Home Condition: Stable Prescriptions: New aspirin 81 mg Tablet,Delayed Release (Dr/Ec) 81 mg PO DAILY 30 Days Qty: 30 0RF clopidogrel 75 mg Tablet 75 mg PO DAILY 30 Days Qty: 30 0RF lisinopril 5 mg Tablet 5 mg PO DAILY 30 Days Qty: 30 0RF propranolol 40 mg Tablet 40 mg PO Q12H 30 Days Qty: 60 0RF Continued (DME) compress.stocking,knee,reg,lrg Misc See Rx Instructions .Route Qty: 2 0RF Rx Instructions: on in the morning and off at bedtime clobetasol 0.05 % solution 1 applic topical DAILY Qty: 50 5RF Rx Instructions: to itchy areas on scalp prn esomeprazole magnesium [Nexium 24HR] 20 mg capsule,delayed release(DR/EC) 20 mg PO DAILY albuterol sulfate [ProAir HFA] 90 mcg/actuation HFA aerosol inhaler 2 puff INHALATION Q4H PRN (Reason: shortness of breath or wheezing) Qty: 6.7 2RF pregabalin 150 mg capsule 150 mg PO BID 30 Days Qty: 60 2RF azelastine 137 mcg (0.1 %) aerosol,spray 2 spray intranasal BID Qty: 30 1RF Rx Instructions: administer into each nostril vilazodone [Viibryd] 20 mg tablet 20 mg PO DAILY Qty: 30 2RF Rx Instructions: must administer with a meal/food triamcinolone acetonide 0.1 % cream 1 applic TOPICAL BID 14 Days Qty: 80 0RF (DME) cpap supplies See Rx Instructions .Route .MEDSUPPLY Qty: 1 0RF Rx Instructions: use nightly with cpap (DME) blood-glucose meter [Blood Glucose Monitoring] Kit See Rx Instructions .ROUTE .MEDSUPPLY Qty: 1 0RF Rx Instructions: To test one x day and prn pimecrolimus [Elidel] 1 % cream See Rx Instructions .ROUTE .COMPLEX Qty: 100 0RF Dose Instruction: APPLY TO AFFECTED AREAS AROUND EYES AND FACE TWICE DAILY NEEDED Rx Instructions: APPLY TO AFFECTED AREAS AROUND EYES AND FACE TWICE DAILY NEEDED (DME) Blood Glucose Test Strip See Rx Instructions .ROUTE .MEDSUPPLY Qty: 100 4RF Rx Instructions: to test one x day and prn (DME) lancets [Lancets,Thin] Misc See Rx Instructions .ROUTE .MEDSUPPLY Qty: 100 4RF Rx Instructions: to test one x day and prn levocetirizine 5 mg tablet See Rx Instructions .ROUTE .COMPLEX Qty: 60 11RF Dose Instruction: TAKE 1 TABLET BY MOUTH EVERY MORNING AND EVERY NIGHT AT BEDTIME Rx Instructions: TAKE 1 TABLET BY MOUTH EVERY MORNING AND EVERY NIGHT AT BEDTIME rosuvastatin 20 mg tablet See Rx Instructions .ROUTE .COMPLEX Qty: 30 11RF Dose Instruction: TAKE 1 TABLET BY MOUTH EVERY MORNING Rx Instructions: TAKE 1 TABLET BY MOUTH EVERY MORNING Trulicity 0.75 mg/0.5 mL pen injector See Rx Instructions .ROUTE .COMPLEX Qty: 2 2RF Dose Instruction: INJECT 0.75mg SUBCUTANEOUSLY ONCE WEEKLY Rx Instructions: INJECT 0.75mg SUBCUTANEOUSLY ONCE WEEKLY famotidine 20 mg tablet See Rx Instructions .ROUTE .COMPLEX Qty: 60 11RF Dose Instruction: TAKE 1 TABLET BY MOUTH EVERY MORNING AND EVERY NIGHT AT BEDTIME Rx Instructions: TAKE 1 TABLET BY MOUTH EVERY MORNING AND EVERY NIGHT AT BEDTIME montelukast 10 mg tablet See Rx Instructions .ROUTE .COMPLEX Qty: 30 5RF Dose Instruction: TAKE 1 TABLET BY MOUTH EVERY MORNING Rx Instructions: TAKE 1 TABLET BY MOUTH EVERY MORNING buspirone 10 mg tablet 20 mg PO BID Qty: 120 2RF escitalopram oxalate [Lexapro] 20 mg tablet 20 mg PO DAILY Qty: 30 2RF polyethylene glycol 3350 [Miralax] 17 gram powder in packet 17 g PO DAILY PRN (Reason: constipation) Qty: 14 0RF Changed amitriptyline 50 mg tablet 25 mg PO .HS Qty: 30 0RF Rx Instructions: Take 1 tablet nightly for 1 week, then 1 tablet every other day for 1 week, then stop Discontinued diclofenac sodium [Voltaren Arthritis Pain] 1 % gel 4 g topical QID Qty: 100 2RF Rx Instructions: apply to single knee, ankle, foot; for foot includes sole/toes/top of foot norgestimate-ethinyl estradiol [Sprintec (28)] 0.25-35 mg-mcg tablet 1 tab PO DAILY Qty: 84 0RF meloxicam 15 mg tablet See Rx Instructions .ROUTE .COMPLEX Qty: 30 5RF Dose Instruction: TAKE 1 TABLET BY MOUTH EVERY NIGHT AT BEDTIME Rx Instructions: TAKE 1 TABLET BY MOUTH EVERY NIGHT AT BEDTIME Discharge Orders: Discharge Order (Routine); Ordered 01/29/24 Ordered By: Kyle Rivas Referrals: Alisson Anderson MD [Physician] - 1 week (We have notified Dr. Anderson's office of the need for a follow-up appointment to be scheduled. If you have not heard from them within the next 2 business days, please call them directly. ) Marcelino Bernard M.D [Physician] - 1 week (intracardiac shunting We have notified Dr. Bernard's office of the need for a follow-up appointment to be scheduled. If you have not heard from them within the next 2 business days, please call them directly. ) Hoa Sanabria FNP [Primary Care Provider] - (We have notified your primary care of the need for a follow-up appointment to be scheduled. If you have not heard from them within the next 2 business days, please call them directly. ) Discharge Diet: Diabetic Discharge Activity: Resume usual activity Patient Instructions: Opioid Safety Activity Restrictions/Additional Instructions: - If you have any recurrent strokelike symptoms please call 911 ? Due to your TIA, please stop meloxicam, do not use any other NSAIDs due to high risk of strokes ? Due to your history of migraines and your TIA, please discontinue your oral combination contraceptive pill, due to increased risk of hypercoagulable events and CVAs -In the meantime please use other form of contraception, to decrease your risk of -Please discuss with your primary care provider about trying a progesterone only oral contraceptive pill or other form of contraception -Please follow-up with neurology ? For your intracardiac shunt, if you have recurrent strokelike symptoms please call [phone], please follow-up with cardiology in 1 week -For your migraines continue propranolol for migraine prophylaxis ? Please monitor your blood pressure closely ? If you have any suicidal ideation, please call [phone] = Discharge Attestations Time Spent in Discharge Care*: greater than 30 min Quality Metrics Clinical Quality Measures [ No reported AMI, CVA or VTE this stay] Coding Level of Care Code 60871 Total time (in minutes) for Discharge: 45 Diagnoses Transient ischemic attack G45.9 Lacunar stroke I63.81 Depression with suicidal ideation F32.A; R45.851 Dyspnea on exertion R06.09
[2024-01-29 15:52] VITALS: BP 105/67; PULSE 58; RESP 18; TEMP 36.5; O2SAT 93
== END 2024-01-29 13:29 | disposition home or self-care (01) | DRG 69 ==
LOC: ER 22:49 → MEDSURG 23:19
PROVIDERS: Admitting Provider Internal Medicine; Emergency Provider Emergency Medicine; PCP Nurse Practitioner Family; Visit Provider Family Medicine
DX: G45.9 Transient cerebral ischemic attack, unspecified (principal); I63.81 Other cerebral infarction due to occlusion or stenosis of small artery; R45.851 Suicidal ideations; Z68.43 Body mass index [BMI] 50.0-59.9, adult; F33.9 Major depressive disorder, recurrent, unspecified; G81.91 Hemiplegia, unspecified affecting right dominant side; R06.09 Other forms of dyspnea; Z87.891 Personal history of nicotine dependence; E11.9 Type 2 diabetes mellitus without complications; I10 Essential (primary) hypertension; E78.5 Hyperlipidemia, unspecified; G43.909 Migraine, unspecified, not intractable, without status migrainosus; M19.90 Unspecified osteoarthritis, unspecified site; E66.01 Morbid (severe) obesity due to excess calories; Z79.899 Other long term (current) drug therapy; Z88.8 Allergy status to other drugs, medicaments and biological substances; Z88.5 Allergy status to narcotic agent; Z91.040 Latex allergy status; G47.33 Obstructive sleep apnea (adult) (pediatric); K21.9 Gastro-esophageal reflux disease without esophagitis; Z90.49 Acquired absence of other specified parts of digestive tract; F41.1 Generalized anxiety disorder; Z11.52 Encounter for screening for COVID-19; D25.9 Leiomyoma of uterus, unspecified; N93.9 Abnormal uterine and vaginal bleeding, unspecified; R29.810 Facial weakness; R47.81 Slurred speech
CPT/HCPCS: 0241U; 36415; 36416; 70450; 70496; 70498; 70551; 71045; 80053; 80061; 80306; 81001; 82962; 83036; 83735; 84702; 85025; 85378; 85610; 85730; 92523; 93005; 93970; 94660; 96372; 97163; 97165; C8929; J1200; J1650; J1815; J1885; J2060; J2765

== ENCOUNTER 2024-02-17 10:39 | Day surgery (SDC) | payer MEDICAID, SELFPAY ==
[2022-07-16 14:08] VITALS: BP 125/74; BMI 51.8
--- NOTE | 2024-02-17 10:51 | USCV_ITS ---
Dora Neville Age: 43 Gender: F : 1980 Exam Date: 02/17/2024 11:47 Ordering Phys: Marcelino Bernard M.D ([email or web address]) Technologist: Miguel Gage [place] [facility] [place]: rule out PFO BP: / HR: Rhythm: Sinus Technical Quality: Adequate MEASUREMENTS (Male / Female) Normal Values Medications Patient given IV sedation by anesthesia service, for details please refer to the anesthesia report. Complications Patient tolerated procedure well. Proc. Components The patient was brought to the JULI examination room in a fasting state after obtaining an informed consent. The JULI probe was passed into the posterior pharynx , mid-esophagus, distal esophagus, and gastric fundus. The patient tolerated the procedure well and there were no complications. FINDINGS Left Ventricle Normal left ventricular size, systolic function and wall thickness, with no regional wall motion abnormalities. Normal left ventricular wall thickness. Estimated ejection fraction is 60% Right Ventricle The right ventricle is normal in size and function. Right Atrium The right atrium is normal in size. Left Atrium The left atrium is normal in size. LA Appendage The LA appendage is normal. IA Septum There appeared to be hypermobile interatrial septum, right-to- left shunt seen at the atrial level with contrast without Valsalva. This study is positive for interatrial shunt/PFO Mitral Valve Structurally normal mitral valve without significant stenosis or prolapse. There is no mitral regurgitation. Aortic Valve Structurally normal aortic valve without significant sclerosis or stenosis. There is no aortic regurgitation. Tricuspid Valve Structurally normal tricuspid valve without significant stenosis or regurgitation. Pulmonary artery systolic pressure is normal. Pulmonic Valve Structurally normal pulmonic valve without significant stenosis. There is no pulmonic regurgitation. Pericardium Normal pericardium without effusion. Aorta Normal ascending aorta dimension. CONCLUSIONS Normal left ventricular size, systolic function and wall thickness, with no regional wall motion abnormalities. Normal left ventricular wall thickness. Estimated ejection fraction is 60%. There appeared to be hypermobile interatrial septum, right-to- left shunt seen at the atrial level with contrast without Valsalva. This study is positive for interatrial shunt/PFO The LA appendage is normal. There is no pericardial effusion. No significant valve abnormalities. Jordan Roblero MD (Electronically Signed) Final Date: 17 February 2024 20:01 S
[2024-02-17 10:56] VITALS: BP 123/86; PULSE 72; RESP 18; TEMP 36.6; O2SAT 99
[2024-02-17 11:08] VITALS: BMI 55.2
--- NOTE | 2024-02-17 11:08 | P.ANESASSM_ITS ---
Pre-Anesthetic Assessment Height/Weight: Height 5 ft 8 in Operation Date: 02/17/24 12:00 Proposed Procedures p JULI(Not Applicable) - Marcelino Bernard M.D Was Beta Cheng taken within 24 hours: Yes Was Clonidine taken within 24 hours: N/A Social Tobacco and No alcohol Exam alert, oriented x 3, clear to auscultation bilaterally and regular rate & rhythm Airway Submandibular: within normal limits Cervical ROM: within normal limits Mallampati: Class III Dentition: full Anesthetic Plan Other: No prior issues with anesthesia NPO since yesterday Patient had a TIA in January 2024 Echo performed during that time: Patient's cardiac echocardiogram showed LV systolic function is normal with EF of 55-60% Bubble study is of limited quality. Grossly bubble crossover is noted indicating possible intracardiac shunting. Patient on chronic Plavix, taken 02/16/2024 Patient also takes dulaglutide, last taken 02/07/2024 Patient states she quit smoking 3 weeks ago Labs reviewed from December and acceptable for procedure at this time Prior EKG showing sinus rhythm Plan for MAC anesthetic Medications/Allergies Home Medications Medication Instructions Recorded Confirmed Last Taken Type blood-glucose meter (Blood Glucose #1 ea 12/26/19 02/17/24 Unknown Rx Monitoring kit) esomeprazole magnesium 20 mg 20 mg PO DAILY 10/06/20 02/17/24 02/16/24 History capsule,delayed release (Nexium 24HR) compress.stocking,knee,reg,lrg #2 ea 03/02/21 02/17/24 Unknown Rx clobetasol 0.05 % scalp solution 1 applic topical DAILY #50 mL 05/20/21 02/17/24 02/15/24 Rx blood sugar diagnostic (Blood #100 ea 10/14/21 02/17/24 Unknown Rx Glucose Test strips) lancets (Lancets,Thin) #100 ea 10/14/21 02/17/24 Unknown Rx albuterol sulfate 90 mcg/actuation 2 puff inhalation Q4H PRN 09/23/22 02/17/24 Unknown Rx aerosol inhaler (ProAir HFA) shortness of breath or wheezing #6.7 grams polyethylene glycol 3350 17 gram 17 g PO DAILY PRN constipation #14 09/24/22 02/17/24 Unknown Rx oral powder packet (Miralax) ea cpap supplies #1 ea 07/11/23 02/17/24 Unknown Rx azelastine 137 mcg (0.1 %) nasal 2 spray intranasal BID #30 mL 09/28/23 02/17/24 02/15/24 Rx spray buspirone 10 mg tablet 20 mg (2 x 10 mg) PO BID #120 tabs 01/16/24 02/17/24 02/16/24 Rx escitalopram oxalate 20 mg tablet 20 mg PO DAILY #30 tabs 01/16/24 02/17/24 02/16/24 Rx (Lexapro) vilazodone 20 mg tablet (Viibryd) 20 mg PO DAILY #30 tabs 01/25/24 02/17/24 02/16/24 Rx aspirin 81 mg tablet,delayed 81 mg PO DAILY 30 days #30 tabs 01/29/24 02/17/24 02/16/24 Rx release lisinopril 5 mg tablet 5 mg PO DAILY 30 days #30 tabs 01/29/24 02/17/24 02/16/24 Rx propranolol 40 mg tablet 40 mg PO Q12H 30 days #60 tabs 01/29/24 02/17/24 02/16/24 Rx pregabalin 150 mg capsule 150 mg PO BID 30 days #60 caps 01/30/24 02/17/24 02/16/24 Rx clopidogrel 75 mg tablet 75 mg PO DAILY 30 days #90 tabs 02/01/24 02/17/24 02/16/24 Rx amitriptyline 50 mg tablet 50 mg PO .HS 02/08/24 02/17/24 02/15/24 History dulaglutide 1.5 mg/0.5 mL 1.5 mg (0.5 mL) SUBCUT .WEEKLY #2 02/08/24 02/17/24 02/07/24 Rx subcutaneous pen injector mL famotidine 20 mg tablet 20 mg PO BID 02/08/24 02/17/24 02/16/24 History levocetirizine 5 mg tablet 5 mg PO BID 02/08/24 02/17/24 02/16/24 History montelukast 10 mg tablet 10 mg PO DAILY 02/08/24 02/17/24 02/16/24 History pimecrolimus 1 % topical cream 1 applic topical PRN 02/08/24 02/17/24 Unknown History (Elidel) rosuvastatin 20 mg tablet 20 mg PO DAILY 02/08/24 02/17/24 02/16/24 History triamcinolone acetonide 0.1 % 1 applic topical BID PRN Rash 02/08/24 02/17/24 Unknown History topical cream Allergies Allergy/AdvReac Type Severity Reaction Status Date / Time methylprednisolone Allergy Severe Blood Verified 02/17/24 10:59 sugar jumped to 200 latex Allergy Intermediate rash/swelli Verified 02/17/24 10:59 ng topiramate [From Topamax] Allergy Unknown Unknown Verified 02/17/24 10:59 fluticasone [From Flonase] Allergy Unknown Verified 02/17/24 10:59 bupropion [From Wellbutrin] AdvReac Intermediate rash & Verified 02/17/24 10:59 swelling codeine AdvReac Intermediate N & V . Verified 02/17/24 10:59 Stomach upset metformin AdvReac Intermediate Upset Verified 02/17/24 10:59 stomach nitrofurantoin AdvReac Intermediate N & V. Verified 02/17/24 10:59 Stomach upset. 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 Gage Pain management contract signed Obstructive sleep apnea (adult) (pediatric) Generalized anxiety disorder Surgical History History of surgical removal of ganglion cyst right wrist Hx of tubal ligation 08/2013 Hx of cholecystectomy Family History Mother Thyroid disease Cataract Father Hypertension Diabetes Heart disease Hypercholesteremia Cancer prostate, skin Grandmother Breast cancer Maternal--dx age unknown Grandfather Stroke Maternal Denies family history of Colon cancer Ovarian cancer Uterine cancer Social History Smoking and tobacco/nicotine status: never used tobacco/nicotine Quit status (tobacco/nicotine): has tried quititng Number of times tried to quit tobacco: 4 Second hand smoke exposure: No Alcohol intake: former Year of sobriety/quit date alcohol: 2018 Substance/Drug Use: former Date of last use: Marijuana 2020 Adopted: No Caregiver/support person: No Lives independently: Yes Household members: spouse and children Housing: Apartment Marital status: Number of children: 4 Number of grandchildren: 2 Highest education level completed: Some College, No Degree service: No Current occupational status: disabled Current occupational exposures/hazards: No Pets and animals: Yes Pets & animals: cat(s) Leisure activites: art, games and other Leisure activities details: watching tv Sexually active: Yes Do you think of yourself as: Straight/Heterosexual Current gender identity: Female Marcia/Synagogue: None Special marcia needs: No Agree to transfusion: Yes Female Reproductive History Para: 4 Spontaneous abortions: No Data Anesthesia Cardiac Studies: Echocardiogram 01/28/24 Echocardiogram Ultrasound 12/27/19
[2024-02-17 11:32] LABS: Glucose Point of Care 102 mg/dL (70-110)
[2024-02-17] MEDS: sodium chloride 0.9% 1,000 ML 30 ML IV (11:32)
--- NOTE | 2024-02-17 12:46 | W.PM.OPSUD ---
Surgery/Procedure H&P Update DATE OF PROCEDURE: February 17, 2024 DATE H&P PERFORMED: 02/01/24 H&P UPDATE INFORMATION: I have reviewed H&P completed within last 30 days, I have examined patient prior to procedure and No changes to prior documentation PREOP DIAGNOSIS: TIA/CVA, rule out cardioembolic source PRIMARY INDICATION FOR PROCEDURE: TIA/CVA PLANNED PROCEDURE: Operation Date: 02/17/24 12:00 Proposed Procedures p JULI(Not Applicable) - Marcelino Bernard M.D See anesthesia OTHER PERTINENT EXAM FINDINGS: GENERAL: Patient is alert, awake and oriented x3. NECK: No jugular vein distension. HEENT: No cyanosis. No icterus. No pallor. HEART: Regular S1 and S2. No murmur, rub or gallop. LUNGS: Clear to auscultate bilaterally. ABDOMEN: Soft, nontender and nondistended. Positive bowel sounds. No guarding, rebound or tenderness. CENTRAL NERVOUS SYSTEM: Grossly nonfocal. EXTREMITIES: Lower extremities with out edema bilaterally.
[2024-02-17 13:05] VITALS: BP 142/84; PULSE 92; RESP 16; TEMP 36.3; O2SAT 100
[2024-02-17 13:20] VITALS: BP 135/100; PULSE 86; RESP 16; O2SAT 100
[2024-02-17 13:35] VITALS: BP 134/59; PULSE 71; RESP 16; O2SAT 100
== END 2024-02-17 14:10 | disposition home or self-care (01) ==
PROVIDERS: Internal Medicine Cardiovascular Disease; PCP Nurse Practitioner Family; Visit Provider Internal Medicine
PROC: (CPT 93312; principal; 2024-02-17 12:00)
DX: Q21.12 Patent foramen ovale (principal); Z86.73 Personal history of transient ischemic attack (TIA), and cerebral infarction without residual deficits; Z79.02 Long term (current) use of antithrombotics/antiplatelets; Z87.891 Personal history of nicotine dependence; K21.9 Gastro-esophageal reflux disease without esophagitis; G47.33 Obstructive sleep apnea (adult) (pediatric); F41.1 Generalized anxiety disorder
CPT/HCPCS: 36416; 82962; J2250; J2704; J7030

== ENCOUNTER → 2024-03-22 16:16 | Outpatient (BNVA) | payer MEDICAID, SELFPAY ==
[2022-07-16 14:08] VITALS: BP 125/74; BMI 51.8
== END ==
PROVIDERS: PCP Nurse Practitioner Family; Visit Provider Obstetrics & Gynecology
DX: Z00.00 Encounter for general adult medical examination without abnormal findings (principal)
CPT/HCPCS: 87624

== ENCOUNTER → 2024-04-04 14:38 | Outpatient (BNVA) | payer MEDICAID, SELFPAY ==
[2022-07-16 14:08] VITALS: BP 125/74; BMI 51.8
== END ==
PROVIDERS: PCP Nurse Practitioner Family; Visit Provider Nurse Practitioner Family
DX: R25.2 Cramp and spasm (principal)
CPT/HCPCS: 80053; 82306; 82607; 83735

== ENCOUNTER → 2024-04-05 15:37 | Outpatient (BNVA) | payer MEDICAID, SELFPAY ==
[2022-07-16 14:08] VITALS: BP 125/74; BMI 51.8
== END ==
PROVIDERS: PCP Nurse Practitioner Family; Visit Provider Nurse Practitioner
DX: M25.561 Pain in right knee (principal); M25.562 Pain in left knee; M17.0 Bilateral primary osteoarthritis of knee; M62.81 Muscle weakness (generalized); Z68.43 Body mass index [BMI] 50.0-59.9, adult
CPT/HCPCS: 73560; 73565

== ENCOUNTER 2024-04-10 10:22 | Day surgery (SDC) | payer MEDICAID, SELFPAY ==
[2022-07-16 14:08] VITALS: BP 125/74; BMI 51.8
--- NOTE | 2024-03-22 11:02 | P.ANESASSM_ITS ---
Pre-Anesthetic Assessment Height/Weight: Height 1.73 m Operation Date: 03/27/24 08:55 Proposed Procedures p Hysteroscopy w/ Myosure 005651, 36490, N93.9, D25.1(Not Applicable) - Boo Woodson MD s Dilation And Curettage (D&C)(Not Applicable) - Boo Woodson MD Social Tobacco vapes Exam alert, oriented x 3, clear to auscultation bilaterally and regular rate & rhythm Airway Mallampati: Class I Dentition: full Comments: Comments: The patient was seated in the exam chair. Her nose was sprayed with Afrin and then 4% Xylocaine solution. Xylocaine solution was used in the oropharynx as well. After few minutes I passed the scope first to the left side than the right side of the nose. Right side gave the best access. It was passed inferiorly to the nasopharynx without problems. No abnormalities were identified. I then turned and went down into the oropharynx. Patient has a massive uvula. Touches the base of the tongue. She has an epiglottis that splays anteriorly and touches the base of tongue with minimal opening of the vallecula. She then has a very narrowed hypopharynx and laryngeal area. The true cords are normal. No nodules or polyps. No masses lesions ulcers. Subglottic area appears clear. Cord mobility is normal. Patient has closed piriform sinuses, from obesity. The excess adipose tissue pushes inward and na rrows the openings leading into the piriform sinuses. I do not see any lesions ulcers or masses. With swallow over the larynx does elevate. Scope was removed without incident. No bleeding was encountered. Patient tolerated the procedure well and was informed not to eat or drink anything until after the numbness wears off which should take about 30 minutes. Pulmonary Sleep Apnea CV/HEM Hypertension PFO w/ TIAs GI Gastroesophageal Reflux Disease Metabolic Diabetes Mellitus and Morbid Obesity [facility] Fibromyalgia Neuropsych Transient Ischemic Attack Anesthetic Plan ASA status: 3 Anesthesia: General Risk of > 500 ml blood loss (7ml/kg in children): No Medications/Allergies Home Medications Medication Instructions Recorded Confirmed Last Taken Type blood-glucose meter (Blood Glucose #1 ea 12/26/19 03/14/24 Unknown Rx Monitoring kit) esomeprazole magnesium 20 mg 20 mg PO DAILY 10/06/20 03/22/24 02/16/24 History capsule,delayed release (Nexium 24HR) compress.stocking,knee,reg,lrg #2 ea 03/02/21 03/14/24 Unknown Rx blood sugar diagnostic (Blood #100 ea 10/14/21 03/14/24 Unknown Rx Glucose Test strips) lancets (Lancets,Thin) #100 ea 10/14/21 03/14/24 Unknown Rx albuterol sulfate 90 mcg/actuation 2 puff inhalation Q4H PRN 09/23/22 03/22/24 Unknown Rx aerosol inhaler (ProAir HFA) shortness of breath or wheezing #6.7 grams polyethylene glycol 3350 17 gram 17 g PO DAILY PRN constipation #14 09/24/22 03/22/24 03/22/24 Rx oral powder packet (Miralax) ea cpap supplies #1 ea 07/11/23 03/14/24 Unknown Rx buspirone 10 mg tablet 20 mg (2 x 10 mg) PO BID #120 tabs 01/16/24 03/22/24 Rx escitalopram oxalate 20 mg tablet 20 mg PO DAILY #30 tabs 01/16/24 03/22/24 03/22/24 Rx (Lexapro) vilazodone 20 mg tablet (Viibryd) 20 mg PO DAILY #30 tabs 01/25/24 03/22/24 03/22/24 Rx pregabalin 150 mg capsule 150 mg PO BID 30 days #60 caps 01/30/24 03/22/24 03/22/24 Rx dulaglutide 1.5 mg/0.5 mL 1.5 mg (0.5 mL) SUBCUT .WEEKLY #2 02/08/24 03/22/24 03/21/24 Rx subcutaneous pen injector mL famotidine 20 mg tablet 20 mg PO BID 02/08/24 03/22/24 1 Day Ago History ~03/21/24 levocetirizine 5 mg tablet 5 mg PO BID 02/08/24 03/22/24 03/22/24 History montelukast 10 mg tablet 10 mg PO DAILY 02/08/24 03/22/24 03/22/24 History rosuvastatin 20 mg tablet 20 mg PO DAILY 02/08/24 03/22/24 03/22/24 History clopidogrel 75 mg tablet 75 mg PO DAILY #90 tabs 02/27/24 03/22/24 03/22/24 Rx lisinopril 5 mg tablet 5 mg PO DAILY #90 tabs 02/27/24 03/22/24 03/22/24 Rx propranolol 40 mg tablet 40 mg PO Q12H #90 tabs 02/27/24 03/22/24 03/22/24 Rx Allergies Allergy/AdvReac Type Severity Reaction Status Date / Time methylprednisolone Allergy Severe Blood Verified 03/19/24 09:17 sugar jumped to 200 latex Allergy Intermediate rash/swelli Verified 03/19/24 09:17 ng topiramate [From Topamax] Allergy Unknown Unknown Verified 03/19/24 09:17 fluticasone [From Flonase] Allergy Unknown Verified 03/19/24 09:17 bupropion [From Wellbutrin] AdvReac Intermediate rash & Verified 03/19/24 09:17 swelling codeine AdvReac Intermediate N & V . Verified 03/19/24 09:17 Stomach upset metformin AdvReac Intermediate Upset Verified 03/19/24 09:17 stomach nitrofurantoin AdvReac Intermediate N & V. Verified 03/19/24 09:17 Stomach upset. 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 Pain management contract signed Obstructive sleep apnea (adult) (pediatric) Generalized anxiety disorder Surgical History History of surgical removal of ganglion cyst right wrist Hx of tubal ligation 08/2013 Hx of cholecystectomy Family History Mother Thyroid disease Cataract Father Hypertension Diabetes Heart disease Hypercholesteremia Cancer prostate, skin Grandmother Breast cancer Maternal--dx age unknown Grandfather Stroke Maternal Denies family history of Colon cancer Ovarian cancer Uterine cancer Social History Smoking and tobacco/nicotine status: former use of tobacco/nicotine Quit status (tobacco/nicotine): has tried quititng Number of times tried to quit tobacco: 4 Second hand smoke exposure: No Alcohol intake: former Year of sobriety/quit date alcohol: 2017 Substance/Drug Use: former Date of last use: Marijuana - 2020 Adopted: No Caregiver/support person: No Lives independently: Yes Household members: spouse and children Housing: Apartment Marital status: Number of children: 4 Number of grandchildren: 2 Highest education level completed: Some College, No Degree service: No Current occupational status: disabled Current occupational exposures/hazards: No Pets and animals: Yes Pets & animals: cat(s) Leisure activites: art, games and other Leisure activities details: watching tv Sexually active: Yes Do you think of yourself as: Straight/Heterosexual Current gender identity: Female Marcia/Pentecostal: None Special marcia needs: No Agree to transfusion: Yes Female Reproductive History Para: 4 Spontaneous abortions: No Data Anesthesia Cardiac Studies: Echocardiogram 01/28/24 Echocardiogram Ultrasound 12/27/19 Transesophageal Echocardiogram 02/17/24
[2024-04-10] VITALS (10 sets, daily range): BP systolic 116–150; BP diastolic 73–96; PULSE 71–96; RESP 13–20; TEMP 36.1–36.3; O2SAT 92–100
--- NOTE | 2024-04-10 11:14 | P.ANESASSM_ITS ---
Pre-Anesthetic Assessment Height/Weight: Height 5 ft 8 in Preop Diagnosis: Menorrhagia, abnormal uterine Operation Date: 04/10/24 12:05 Proposed Procedures p Hysteroscopy w/ Myosure 392053, 93703, N93.9, D25.1(Not Applicable) - Boo Woodson MD s Dilation And Curettage (D&C)(Not Applicable) - Boo Woodson MD Was Beta Cheng taken within 24 hours: N/A Was Clonidine taken within 24 hours: N/A Social No alcohol and No tobacco Exam alert, oriented x 3, clear to auscultation bilaterally and regular rate & rhythm Airway Submandibular: within normal limits Cervical ROM: within normal limits Mallampati: Class III Dentition: full Anesthetic Plan ASA status: 3 Anesthesia: General Other: No prior issues with anesthesia NPO since yesterday Patient had a TIA in January 2024 Echo performed during that time: Patient's cardiac echocardiogram showed LV systolic function is normal with EF of 55-60% Bubble study is of limited quality. Grossly bubble crossover is noted indicating possible intracardiac shunting. Patient on chronic Plavix, taken 5 days ago Patient also takes dulaglutide, last taken 2 weeks ago Patient states she quit smoking Labs reviewed from today and acceptable for procedure at this time Prior EKG showing sinus rhythm Plan for General surgery Medications/Allergies Home Medications Medication Instructions Recorded Confirmed Last Taken Type blood-glucose meter (Blood Glucose #1 ea 12/26/19 04/05/24 Unknown Rx Monitoring kit) esomeprazole magnesium 20 mg 20 mg PO DAILY 10/06/20 04/10/24 04/09/24 History capsule,delayed release (Nexium 24HR) compress.stocking,knee,reg,lrg #2 ea 03/02/21 04/05/24 Unknown Rx blood sugar diagnostic (Blood #100 ea 10/14/21 04/05/24 Unknown Rx Glucose Test strips) lancets (Lancets,Thin) #100 ea 10/14/21 04/05/24 Unknown Rx albuterol sulfate 90 mcg/actuation 2 puff inhalation Q4H PRN 09/23/22 04/10/24 Unknown Rx aerosol inhaler (ProAir HFA) shortness of breath or wheezing #6.7 grams polyethylene glycol 3350 17 gram 17 g PO DAILY PRN constipation #14 09/24/22 04/10/24 04/09/24 Rx oral powder packet (Miralax) ea cpap supplies #1 ea 07/11/23 04/05/24 Unknown Rx buspirone 10 mg tablet 20 mg (2 x 10 mg) PO BID #120 tabs 01/16/24 04/10/24 04/09/24 Rx escitalopram oxalate 20 mg tablet 20 mg PO DAILY #30 tabs 01/16/24 04/10/24 04/09/24 Rx (Lexapro) vilazodone 20 mg tablet (Viibryd) 20 mg PO DAILY #30 tabs 01/25/24 04/10/24 04/08/24 Rx pregabalin 150 mg capsule 150 mg PO BID 30 days #60 caps 01/30/24 04/10/24 04/09/24 Rx dulaglutide 1.5 mg/0.5 mL 1.5 mg (0.5 mL) SUBCUT .WEEKLY #2 02/08/24 04/05/24 03/27/24 Rx subcutaneous pen injector mL famotidine 20 mg tablet 20 mg PO BID 02/08/24 04/10/24 04/09/24 History levocetirizine 5 mg tablet 5 mg PO BID 02/08/24 04/10/24 04/09/24 History montelukast 10 mg tablet 10 mg PO DAILY 02/08/24 04/10/24 04/09/24 History rosuvastatin 20 mg tablet 20 mg PO DAILY 02/08/24 04/10/24 04/09/24 History clopidogrel 75 mg tablet 75 mg PO DAILY #90 tabs 02/27/24 04/05/24 04/03/24 Rx lisinopril 5 mg tablet 5 mg PO DAILY #90 tabs 02/27/24 04/10/24 04/09/24 Rx propranolol 40 mg tablet 40 mg PO Q12H #90 tabs 02/27/24 04/10/24 04/09/24 Rx cholecalciferol (vitamin D3) 1,250 50,000 unit PO .ONCE WEEKLY #12 04/06/24 04/10/24 Unknown Rx mcg (50,000 unit) capsule caps Allergies Allergy/AdvReac Type Severity Reaction Status Date / Time methylprednisolone Allergy Severe Blood Verified 04/05/24 15:00 sugar jumped to 200 latex Allergy Intermediate rash/swelli Verified 04/05/24 15:00 ng topiramate [From Topamax] Allergy Unknown Unknown Verified 04/05/24 15:00 fluticasone [From Flonase] Allergy Unknown Verified 04/05/24 15:00 bupropion [From Wellbutrin] AdvReac Intermediate rash & Verified 04/05/24 15:00 swelling codeine AdvReac Intermediate N & V . Verified 04/05/24 15:00 Stomach upset metformin AdvReac Intermediate Upset Verified 04/05/24 15:00 stomach nitrofurantoin AdvReac Intermediate N & V. Verified 04/05/24 15:00 Stomach upset. 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 Pain management contract signed Obstructive sleep apnea (adult) (pediatric) Generalized anxiety disorder Surgical History History of surgical removal of ganglion cyst right wrist Hx of tubal ligation 08/2013 Hx of cholecystectomy Family History Mother Thyroid disease Cataract Father Hypertension Diabetes Heart disease Hypercholesteremia Cancer prostate, skin Grandmother Breast cancer Maternal--dx age unknown Grandfather Stroke Maternal Denies family history of Colon cancer Ovarian cancer Uterine cancer Social History Smoking and tobacco/nicotine status: never used tobacco/nicotine Quit status (tobacco/nicotine): has tried quititng Number of times tried to quit tobacco: 4 Second hand smoke exposure: No Alcohol intake: former Year of sobriety/quit date alcohol: 2017 Substance/Drug Use: former Date of last use: Marijuana - 2020 Adopted: No Caregiver/support person: No Lives independently: Yes Household members: spouse and children Housing: Apartment Marital status: Number of children: 4 Number of grandchildren: 2 Highest education level completed: Some College, No Degree service: No Current occupational status: disabled Current occupational exposures/hazards: No Pets and animals: Yes Pets & animals: cat(s) Leisure activites: art, games and other Leisure activities details: watching tv Sexually active: Yes Do you think of yourself as: Straight/Heterosexual Current gender identity: Female Marcia/Buddhism: None Special marcia needs: No Agree to transfusion: Yes Female Reproductive History Para: 4 Spontaneous abortions: No Data Anesthesia 04/10/24 11:17 04/10/24 11:17 Cardiac Studies: 2 Echocardiogram 01/28/24 Echocardiogram Ultrasound 12/27/19 Transesophageal Echocardiogram 02/17/24
[2024-04-10 11:23] LABS: Glucose Point of Care 127 mg/dL (70-110)
[2024-04-10] MEDS: sodium chloride 0.9% 1,000 ML 30 ML IV (11:25)
[2024-04-10 11:26] LABS: Basophils % 0.5 %; Eosinophils # 0.1 10^3/uL (0.0-0.8); Eosinophils % 1.7 %; Hematocrit 36.8 % (36-47); Lymphocytes # 1.9 10^3/uL (0.8-4.8); Lymphocytes % 24.3 %; Mean Corpuscular HGB Conc 30.7 g/dL (30-55); Mean Corpuscular Hemoglobin 24.1 pg (27-33); Mean Corpuscular Volume 78.5 fl (85-98); Mean Platelet Volume 8.4 fL (7.4-10.4); Monocytes # 0.5 10^3/uL (0.2-0.9); Monocytes % 6.1 %; Neutrophils # 5.28 10^3/uL (1.8-7.7); Nucleated Red Blood Cells % 0 %; Platelet Count 253 10^3/cmm (157-399); Red Blood Count 4.69 10^6/uL (3.85-5.65); Red Cell Distribution Width 15.6 % (12.1-15.1); White Blood Count 7.87 10^3/uL (3.29-11.43)
[2024-04-10] MEDS: scopolamine 1.5 Patch 1 PATCH TRANSDERMA (11:27)
[2024-04-10] MEDS: ceFAZolin 3,000 MG in sodium chloride 0.9% (plus) 100 ML 200 MG IV (11:44)
--- NOTE | 2024-04-10 11:45 | W.PM.OPSUD ---
Surgery/Procedure H&P Update DATE OF PROCEDURE: April 10, 2024 DATE H&P PERFORMED: 03/23/24 H&P UPDATE INFORMATION: I have reviewed H&P completed within last 30 days, I have examined patient prior to procedure and No changes to prior documentation PREOP DIAGNOSIS: Menorrhagia, abnormal uterine PLANNED PROCEDURE: Operation Date: 04/10/24 12:05 Proposed Procedures p Hysteroscopy w/ Myosure 357178, 28042, N93.9, D25.1(Not Applicable) - Boo Woodson MD s Dilation And Curettage (D&C)(Not Applicable) - Boo Woodson MD
[2024-04-10 11:47] LABS: Alanine Aminotransferase 13 U/L (0-33); Albumin Level 3.9 g/dL (3.5-5.2); Alkaline Phosphatase 62 U/L (35-105); Anion Gap 13.8 (5-19); Aspartate Amino Transferase 17 U/L (0-32); Blood Urea Nitrogen 14 mg/dL (6-20); Calcium 8.9 mg/dL (8.5-10.5); Carbon Dioxide 29 mmol/L (22-29); Chloride 102 mmol/L (98-107); Creatinine Clr Calc Pharmacy 131.4455; Glucose 108 mg/dL (65-115); Osmolality Calculated 291 mOsm/kg (285-295); Potassium 4.8 mmol/L (3.5-5.1); Sodium 140 mmol/L (136-145); Total Bilirubin 0.4 mg/dL (0.15-1.2); Total Protein 6.9 g/dL (6.6-8.7)
[2024-04-10 11:53] LABS: OR HCG Qualitative Urine Negative (Negative)
[2024-04-10 11:57] LABS: Bilirubin Urine Negative (Negative); Blood Urine 1+ (Negative); Glucose Urine UA Negative (Normal); Ketones Urine Trace (Negative); Leukocyte Esterase Urine Trace (Negative); Nitrate Urine Negative (Negative); Protein Urine Trace (Negative); Urine Appearance Clear (CLEAR); Urine Color Yellow (Yellow)
[2024-04-10 12:13] LABS: UA Manual Slide Review YES; UA Slide Review UA Slide Review Perf
[2024-04-10] MEDS: lidocaine-epi 2% PF 1:200,000 20 mL SDV XX (12:19)
[2024-04-10 12:24] LABS: Add Urine Microscopic? YES; RBC Urine 15-25 /hpf (0-2)
[2024-04-10 12:25] LABS: Add Urine Culture? No; Bacteria Urine TRACE /hpf; Mucus Urine TRACE /hpf; Squamous Epithelial Cell Urine 0-4 /hpf (0-5); WBC Urine 0-4 /hpf (0-5)
--- NOTE | 2024-04-10 13:26 | PM.OP ---
Operative Report Date of procedure: April 10, 2024 Pre-op diagnosis: Menorrhagia Post-op diagnosis: same Procedure done: Hysteroscopy Dilation and curettage Surgeon: Boo Woodson MD Estimated blood loss (mL): 10 IV fluids (mL): 750 Complications: none Procedure: After informed consent, the risks included but were not limited to bleeding, infection, injury to internal organs. The patient was counseled on a possible laparotomy and on the potential need for hysterectomy. The patient expressed understanding of the risks involved, all questions were answered, and the patient consented to the procedure. The patient was taken to the operating room where general anesthesia was administered. She was placed in the dorsal lithotomy position and prepped and draped in sterile fashion. A time out procedure was performed. The patient was examined under anesthesia and found to have a normal uterus with normal adnexa. A sterile weight speculum was placed in the vagina. The uterus was then gently sounded to 9 cm, and the cervix was dilated. The 0 degrees MyoSure hysteroscope was advanced gently to the uterine but the Myosure scope could not reach in far enougth to adequately assess the uterine cavity. The endocervical canal was normal. Then proceeded to perform a dilation and curettage. The curette was advanced gently to the uterine fundus rotated to clear the uterus. The curettage was then performed until a gritty texture was noted. Hysteroscopy was reinserted. There was minimal bleeding noted and the tenaculum removed with goad hemostasis noted. There was minimal bleeding noted and the tenaculum removed with goad hemostasis noted. The patient tolerated the procedure well. The patient was taken to the recovery area in stable condition.
--- NOTE | 2024-04-11 14:20 | ANE.PACU2 ---
Inpatient post-anesthesia follow up: Airway intact: Yes Vital signs: Temperature 97.2 F Pulse Rate 77 Respiratory Rate 20 Blood Pressure 118/73 Pulse Oximetry 96 Oxygen Delivery Me thod Room Air Oxygen Flow Rate 8 Fraction of Inspir ed Oxygen Hydration adequate: Yes Nausea and vomiting: No Pain level: 2 Mental status: Baseline
== END 2024-04-10 14:20 | disposition home or self-care (01) ==
PROVIDERS: PCP Nurse Practitioner Family; Visit Provider Obstetrics & Gynecology
PROC: (CPT 58120; 2024-04-10 11:55)
PROC: 0UJD8ZZ Inspection of Uterus and Cervix, Via Natural or Artificial Opening Endoscopic (ICD-10-PCS; CPT 58555; 2024-04-10 11:55)
DX: N92.0 Excessive and frequent menstruation with regular cycle (principal); I10 Essential (primary) hypertension; K21.9 Gastro-esophageal reflux disease without esophagitis; E11.9 Type 2 diabetes mellitus without complications; E66.01 Morbid (severe) obesity due to excess calories; Z68.43 Body mass index [BMI] 50.0-59.9, adult; M79.7 Fibromyalgia; Z86.73 Personal history of transient ischemic attack (TIA), and cerebral infarction without residual deficits; G47.33 Obstructive sleep apnea (adult) (pediatric); Z87.891 Personal history of nicotine dependence
CPT/HCPCS: 58558; 36415; 36416; 80053; 81001; 81025; 82962; 85025; 86850; 86900; 88305; J0690; J1100; J1885; J2405; J2704; J3010; J7030

== ENCOUNTER → 2024-06-05 14:22 | Outpatient (BNVA) | payer MEDICAID, SELFPAY ==
[2022-07-16 14:08] VITALS: BP 125/74; BMI 51.8
== END ==
PROVIDERS: Family Provider Nurse Practitioner Family; PCP Nurse Practitioner Family; Visit Provider Nurse Practitioner Family
DX: E11.9 Type 2 diabetes mellitus without complications (principal)
CPT/HCPCS: 80053; 80061; 83036; 84443; 85025

== ENCOUNTER 2024-06-11 14:42 | Outpatient (CLI) | payer MEDICAID, SELFPAY ==
[2022-07-16 14:08] VITALS: BP 125/74; BMI 51.8
--- NOTE | 2024-06-11 15:15 | MR_ITS ---
WS: [id number] MRI BRAIN WITHOUT CONTRAST HISTORY: G45.9 - Transient cerebral ischemic attack, unspecified COMPARISON: 01/28/2024, CT 01/27/2024 TECHNIQUE: Diffusion imaging, multiplanar T1, T2 and FLAIR imaging obtained. No evidence for acute infarct or hemorrhage. Jessica-white matter differentiation is normal. Prior lacunar infarct in the RIGHT cerebellum. Single focus of hyperintensity in the LEFT centrum semiovale., No change since 01/28/2024. Ventricles and extra-axial spaces are normal. No inferior displacement of cerebellar tonsils. The sella turcica and pituitary gland are unremarkable. Dural venous sinuses and ambler of Argueta demonstrate no abnormality on this unenhanced studies. Paranasal sinuses: Small amount of fluid in the LEFT maxillary sinus. Mastoid air cells: Extensive bilateral mastoid air cell effusions. Calvarium and scalp: Intact. MR/MR head wo con* [id number] IMPRESSION: 1. No acute lacunar infarct or hemorrhage. 2. Remote lacunar infarct in the RIGHT cerebellum. 3. No significant atrophy or volume loss. 4. Extensive bilateral mastoid air cell effusions.
== END 2024-06-11 14:43 | disposition home or self-care (01) ==
PROVIDERS: Family Provider Nurse Practitioner Family; PCP Nurse Practitioner Family; Visit Provider Nurse Practitioner Family
DX: G45.9 Transient cerebral ischemic attack, unspecified (principal); R93.0 Abnormal findings on diagnostic imaging of skull and head, not elsewhere classified; H74.8X3 Other specified disorders of middle ear and mastoid, bilateral
CPT/HCPCS: 70551

== ENCOUNTER → 2024-07-17 15:40 | Outpatient (BNVA) | payer MEDICAID, SELFPAY ==
[2022-07-16 14:08] VITALS: BP 125/74; BMI 51.8
== END ==
PROVIDERS: Family Provider Nurse Practitioner Family; PCP Nurse Practitioner Family; Visit Provider Nurse Practitioner Family
DX: R30.0 Dysuria (principal)
CPT/HCPCS: 81003; 87086

== ENCOUNTER 2024-09-10 11:15 | Outpatient (CLI) | payer MEDICAID, SELFPAY ==
[2022-07-16 14:08] VITALS: BP 125/74; BMI 51.8
--- NOTE | 2024-09-10 11:25 | XRR_ITS ---
PROCEDURE INFORMATION: Exam: XR Temporomandibular Joints, Open and Closed Mouth Exam date and time: 09/10/2024 11:32 AM Age: 44 years old Clinical indication: Jaw pain; RT side ear pain and jaw popping; Additional info: Otalgia TECHNIQUE: Imaging protocol: XR of the bilateral temporomandibular joints, open and closed mouth views. COMPARISON: MR head wo con* [id number] 06/11/2024 2:56 PM FINDINGS: Paranasal sinuses: Well aerated. Bones/joints: There is typical anterior translation of the mandibular condyle with respect to the mandibular fossa on the open-mouth images and normal positioning of the condyle within the mandibular fossa on the closed-mouth images. No significant joint space narrowing. No acute fracture or dislocation. Soft tissues: Unremarkable. XR/[place] [id number] IMPRESSION: Unremarkable bilateral TMJs
== END 2024-09-10 11:16 | disposition home or self-care (01) ==
PROVIDERS: PCP Nurse Practitioner Family; Visit Provider Nurse Practitioner Family
DX: H92.03 Otalgia, bilateral (principal)
CPT/HCPCS: 70330

== ENCOUNTER → 2024-09-13 12:10 | Outpatient (BNVA) | payer MEDICAID, SELFPAY ==
[2022-07-16 14:08] VITALS: BP 125/74; BMI 51.8
== END ==
PROVIDERS: PCP Nurse Practitioner Family; Visit Provider Nurse Practitioner Family
DX: R60.9 Edema, unspecified (principal)
CPT/HCPCS: 80053; 81000; 82306; 85025

== ENCOUNTER → 2024-10-02 11:30 | Outpatient (BNVA) | payer MEDICAID, SELFPAY ==
[2022-07-16 14:08] VITALS: BP 125/74; BMI 51.8
== END ==
PROVIDERS: PCP Nurse Practitioner Family; Visit Provider Nurse Practitioner Family
DX: D50.9 Iron deficiency anemia, unspecified (principal); E11.9 Type 2 diabetes mellitus without complications; R30.0 Dysuria
CPT/HCPCS: 81003; 83036; 85025

== ENCOUNTER → 2024-11-26 12:30 | Outpatient (BNVA) | payer MEDICAID, SELFPAY ==
[2022-07-16 14:08] VITALS: BP 125/74; BMI 51.8
== END ==
PROVIDERS: PCP Nurse Practitioner Family; Visit Provider Nurse Practitioner Family
DX: N95.1 Menopausal and female climacteric states (principal)
CPT/HCPCS: 80053; 84443; 85025

== ENCOUNTER → 2024-12-10 13:14 | Outpatient (BNVA) | payer MEDICAID, SELFPAY ==
[2022-07-16 14:08] VITALS: BP 125/74; BMI 51.8
== END ==
PROVIDERS: PCP Nurse Practitioner Family; Visit Provider Nurse Practitioner Family
DX: D50.9 Iron deficiency anemia, unspecified (principal)
CPT/HCPCS: 85025

== ENCOUNTER → 2025-01-14 14:23 | Outpatient (BNVA) | payer MEDICAID, SELFPAY ==
[2025-01-09 08:39] VITALS: BP 125/74; BMI 51.8
== END ==
PROVIDERS: PCP Nurse Practitioner Family; Visit Provider Nurse Practitioner Family
DX: M47.896 Other spondylosis, lumbar region (principal); M40.56 Lordosis, unspecified, lumbar region; G89.29 Other chronic pain
CPT/HCPCS: 72100

== ENCOUNTER 2025-02-20 14:03 | Outpatient (RCR) | payer MEDICAID, SELFPAY ==
[2025-01-09 08:39] VITALS: BP 125/74; BMI 51.8
== END 2025-03-01 23:59 | disposition home or self-care (01) ==
LOC: TPT 14:03
PROVIDERS: Visit Provider Family Medicine
DX: M54.50 Low back pain, unspecified (principal); G89.29 Other chronic pain
CPT/HCPCS: 97162

== ENCOUNTER → 2025-02-28 12:18 | Outpatient (BNVA) | payer MEDICAID, SELFPAY ==
[2025-01-09 08:39] VITALS: BP 125/74; BMI 51.8
== END ==
PROVIDERS: PCP Nurse Practitioner Family; Visit Provider Nurse Practitioner Family
DX: E11.9 Type 2 diabetes mellitus without complications (principal); J02.9 Acute pharyngitis, unspecified
CPT/HCPCS: 80053; 80061; 82306; 83036; 84443; 85025; 87071; 87880

== ENCOUNTER → 2025-04-11 12:09 | Outpatient (BNVA) | payer MEDICAID, SELFPAY ==
[2025-01-09 08:39] VITALS: BP 125/74; BMI 51.8
== END ==
PROVIDERS: PCP Nurse Practitioner Family; Visit Provider Nurse Practitioner Family
DX: R11.0 Nausea (principal)
CPT/HCPCS: 80053; 84439; 84443; 85025

== ENCOUNTER 2025-04-22 09:51 | Outpatient (CLI) | payer MEDICAID, SELFPAY ==
[2025-01-09 08:39] VITALS: BP 125/74; BMI 51.8
--- NOTE | 2025-04-22 10:00 | USCV_ITS ---
Dora Neville Age: 44 Gender: F : 1980 Exam Date: 04/22/2025 10:10 Ordering Phys: Marcelino Bernard M.D ([email or web address]) Technologist: [place] [facility] [place]: hx of asd repair BP: 125 / 76 HR: Rhythm: Sinus Technical Quality: Adequate MEASUREMENTS (Male / Female) Normal Values 2D ECHO LVOT Diameter 2.9 cm LV Ejection Fraction MOD 4C 56.6 % LV Ejection Fraction MOD 2C 65.0 % LV Ejection Fraction 2C AL 64.7 % M-MODE LA Ao Ratio MM 1.0 AV Cusp Separation MM 2.3 cm FINDINGS Left Ventricle Normal left ventricular size, systolic function and wall thickness, with no regional wall motion abnormalities. Left ventricular ejection fraction is estimated at 60 %. Right Ventricle Right Atrium Left Atrium IA Septum Mitral Valve Aortic Valve Tricuspid Valve Pulmonic Valve Pericardium Aorta IVC CONCLUSIONS Limited echo Normal left ventricular size, systolic function and wall thickness, with no regional wall motion abnormalities. Left ventricular ejection fraction is estimated at 60 %. Bubble study is inconclusive due to weak saline injection, if clinically indicated repeate bubble study Jordan Roblero MD (Electronically Signed) Final Date: 29 April 2025 00:11 S
== END 2025-04-22 09:52 | disposition home or self-care (01) ==
LOC: RAD 09:52
PROVIDERS: PCP Nurse Practitioner Family; Visit Provider Internal Medicine
DX: Q21.12 Patent foramen ovale (principal)
CPT/HCPCS: C8929

== ENCOUNTER 2025-05-01 14:50 | Outpatient (CLI) | payer MEDICAID, SELFPAY ==
[2025-01-09 08:39] VITALS: BP 125/74; BMI 51.8
--- NOTE | 2025-05-01 15:00 | USR_ITS ---
PROCEDURE INFORMATION: Exam: US Soft Tissue Head and Neck, Thyroid Exam date and time: 05/01/2025 3:17 PM Age: 44 years old Clinical indication: Other abnormal lab; Other specified abnormal findings of blood chemi. . ; Additional info: R79.89 - other specified abnormal findings of blood chemi. . . TECHNIQUE: Imaging protocol: Real-time ultrasound scan of the neck with image documentation. Exam focused on the thyroid. COMPARISON: CT angio headneck* [id number] 01/27/2024 9:21 PM FINDINGS: Right thyroid lobe: Right lobe: 3.9 x 2.1 x 1.7 cm. Hypoechoic solid, well-circumscribed nodule with regular margins, wider than tall lower pole 1.5 x 1.4 x 0.9 cm.TIRADS 4. Predominantly solid, well-circumscribed nodule with regular margins, taller than wide hypoechoic nodule mid/upper pole 1.9 x 1.5 x 1.6. Microcalcifications.TIRADS 5. Left thyroid lobe: Left lobe: 4.5 x 1.8 x 1.5 cm. Hypoechoic solid, well-circumscribed nodule with regular margins, wider than tall midpole 1.6 x 1.4 x 0.9 cm.TIRADS 4. Isthmus: No nodules. US/US thyroid [id number] IMPRESSION: Thyroid nodules as described above. Please make note of the TI-RADS 5 nodule on the right as described above. COMMENTS: 1. Recommendations for TI-RADS scores are listed below for reference. (See Reference: Sohan) 2. TI-RADS 1, Benign. 0 points: No fine needle aspiration (FNA) or follow-up ultrasound recommended. 3. TI-RADS 2, Not suspicious. 2 points: No FNA or follow-up ultrasound recommended. 4. TI-RADS 3, Mildly suspicious. 3 points: FNA if equal or greater than 2.5 cm. Follow-up ultrasound if 1.5 to 2.4 cm in 1, 3, and 5 years. 5. TI-RADS 4, Moderately Suspicious. 4-6 points: FNA if equal or greater than 1.5 cm. Follow-up ultrasound if 1 to 1.4 cm in 1, 2, 3, and 5 years. 6. TI-RADS 5, Highly Suspicious. 7 points or greater: FNA if equal or greater than 1 cm. Follow-up ultrasound if 0.5 to 0.9 cm every year for 5 years. REFERENCES: Sohan FN, Bernard VICTOR, Ricardo RUELAS et al. ACR Thyroid Imaging, Reporting and Data System (TI-RADS): White Paper of the ACR TI-RADS Committee. J Am Caryl Radiol. 2017; 14: 587-595.
== END 2025-05-01 14:51 | disposition home or self-care (01) ==
LOC: RAD 14:50
PROVIDERS: PCP Nurse Practitioner Family; Visit Provider Nurse Practitioner Family
DX: R79.89 Other specified abnormal findings of blood chemistry (principal); E04.1 Nontoxic single thyroid nodule
CPT/HCPCS: 76536